=== PATIENT | male | born 1935 | race Caucasian/White ===

== ENCOUNTER 2018-02-13 13:35 | Inpatient (IN) ==
--- NOTE | 2018-02-13 13:59 | Emergency Department Note ---
Disposition Clinical Impression: Chest pain Qualifiers: Chest pain type: unspecified Qualified Code(s): R07.9 - Chest pain, unspecified Dyspnea Qualifiers: Dyspnea type: unspecified Qualified Code(s): R06.00 - Dyspnea, unspecified Abdominal pain Qualifiers: Abdominal location: unspecified location Qualified Code(s): R10.9 - Unspecified abdominal pain CHF exacerbation Qualifiers: Heart failure type: unspecified Qualified Code(s): I50.9 - Heart failure, unspecified Disposition: Admitted As Inpatient Condition: Good Referrals: Kirt Trevino DO [Primary Care Provider] - Forms: ED Satisfaction Letter Time of Disposition: 16:42 SOB HPI - General Chief Complaint: ED Shortness of Breath/Dyspnea Stated Complaint: WILIAN, CHF, S/P 3wks Time Seen by Provider: 02/13/18 13:59 Source: patient, family Mode of arrival: ambulatory Limitations: no limitations Nursing Notes Reviewed: Yes Vital Signs Reviewed: Yes - History of Present Illness Patient is an 82-year-old male with a past medical history of CHF, COPD, recent right inguinal hernia repair. He is planned to have a pacemaker placed next week. He presents today due to shortness of breath, lower extremity swelling. He says that he usually takes 20 mg Lasix daily. However, last week his Lasix dosing was changed to every other day dosing due to concern for dehydration. However, over the past week since that change, he has noted increasing shortness of breath and lower extremity swelling, he reports a weight gain up to a pound a day. He also admits to some chest tightness that starts in the center of his chest, no radiation to the back or arms, described as a sharp squeezing pressure, worse with exertion, associated with some shortness of breath and mild nausea. Rated a 10 out of 10 at its worst, currently rates it as 0 out of 10. No calf pain or leg redness. No history stent placement. He also notes some mild lower abdominal pain. He did recently have a right inguinal hernia repair in says that he has been constipated recently and feels as though his stomach tightens up occasionally. No other vomiting, diarrhea, blood in stool, surgical repair site has no erythema or pus drainage. No fevers. - Related Data Home Medications Medication Instructions Recorded Confirmed Aspirin [Lo-Dose Aspirin EC] 81 mg PO DAILY 08/25/16 01/27/18 Sertraline [Zoloft] 100 mg PO DAILY 08/25/16 01/27/18 Metoprolol Succinate [Toprol Xl] 25 mg PO DAILY 01/27/18 01/27/18 Previous Rx's Medication Instructions Recorded Furosemide [Lasix] 20 mg PO DAILY #30 tablet 01/27/18 Allergies Allergy/AdvReac Type Severity Reaction Status Date / Time No Known Allergies Allergy Verified 01/27/18 13:13 All systems ED: reviewed and negative except as stated. Constitutional: Denies: fever Cardiovascular: Reports: chest pain, dyspnea on exertion. Denies: palpitations Respiratory: Reports: dyspnea. Denies: cough, wheezes Gastrointestinal: Reports: abdominal pain, nausea, constipation. Denies: vomiting, diarrhea, hematemesis, melena, hematochezia Genitourinary: Denies: urgency, dysuria Neurological: Denies: headache, weakness, numbness, paresthesias Past Medical History - Past Medical History Attestation: Yes The following information was validated with the patient. Source: patient Medical history: Reports: non-contributory, asthma, atrial fibrillation, cancer , CHF, COPD, hyperlipidemia Surgical history: Reports: cancer surgery Psychiatric history: Reports: anxiety, depression - Social History Smoking Status: Former smoker Smokeless Tobacco Status: Yes Alcohol use: Reports: none Drug use: Reports: none Physical Exam - General Limitations: no limitations General appearance: alert, in no apparent distress - Head Head exam: atraumatic, normocephalic, normal inspection - Eye Eye exam: Present: normal appearance, PERRL, EOMI - ENT ENT exam: normal exam, normal oropharynx, mucous membranes moist - Neck Neck exam: Present: normal inspection, full ROM, trachea midline - Chest Chest inspection: Present: normal inspection, symmetric chest wall rise. Absent : tenderness, rash - Respiratory Respiratory exam: Present: normal lung sounds bilaterally - Cardiovascular Cardiovascular exam: Present: regular rate, normal rhythm, normal heart sounds - Abdominal Exam Abdominal exam: Present: soft, tenderness (mild RLQ tenderness). Absent: distention, guarding, rebound, rigidity, Forrest's sign, Rovsing's sign, tenderness at McBurney's Point - Extremities Exam Extremities exam: Present: full ROM, pedal edema (pitting edema bilateral LE, no calf pain or erythema). Absent: tenderness - Neurological Exam Neurological exam: Present: alert, oriented X3 - Psychiatric Psychiatric exam: Present: normal affect, normal mood - Skin Skin exam: Present: warm, dry, intact, normal color Course Course Narrative: Chest X-Ray 02/13/18 13:40 IMPRESSION: Findings in keeping with congestive heart failure with small bilateral pleural effusions and interstitial edema. D/ / Percy Manuel MD / Percy Manuel MD Interpreting Provider: Percy Manuel MD Abdomen/Pelvis CT 02/13/18 15:15 IMPRESSION: 1. 2.9 x 2.3 cm ovoid fluid density collection near the internal opening of the right inguinal canal. This may represent a postoperative seroma versus abscess. No right inguinal hernia. 2. Small fat containing left inguinal hernia with a trace volume of fluid in the inguinal canal. 3. Trace volume of nonspecific ascites. 4. Small bilateral pleural effusions and bibasilar consolidations likely representing atelectasis with pneumonia not excluded. D/ / Percy Manuel MD / Percy Manuel MD Interpreting Provider: Percy Manuel MD Vital Signs Temperature 97.7 F 02/13/18 13:41 Pulse Rate 98 02/13/18 13:41 Respiratory Rate 20 02/13/18 13:41 Blood Pressure 102/53 02/13/18 13:41 O2 Sat by Pulse Oximetry 94 02/13/18 13:41 Temperature 97.7 F 02/13/18 13:41 Pulse Rate 122 02/13/18 15:44 Respiratory Rate 18 02/13/18 15:44 Blood Pressure 104/72 02/13/18 15:44 O2 Sat by Pulse Oximetry 95 02/13/18 15:44 Oxygen Delivery Oxygen Delivery Room Air Shortness of Breath/Dyspnea - MDM Narrative Medical decision making narrative: Chest x-ray shows small bilateral pleural effusions and interstitial edema. EKG did show some new ST depression and T-wave inversions in an V4 through V6, lead II. Troponin negative. Due to concern for CHF exacerbation, patient was given IV Lasix. Also talked with quality system manager Dr. León due to new EKG changes. He did not recommend heparin at this time due to the patient having no active chest pain currently and no elevation in troponin. Patient also had CT of the abdomen and pelvis to assess for abdominal tightness and right lower quadrant pain. He does have a 2 x 2 cm likely seroma near the inguinal incision site. Otherwise, no other acute intra-abdominal process. Due to new EKG changes, history of recent chest pain or shortness of breath, concern for CHF exacerbation, will admit the patient for further care. - Medical Records Medical records reviewed: Yes I reviewed the patient's medical records. - Lab Data Lab results reviewed: Yes I reviewed the patient's lab results. Result diagrams: 02/13/18 14:34 02/13/18 14:34 Lab Results 02/13/18 02/13/18 02/13/18 Range/Units 14:34 14:34 14:34 WBC 5.4 (4.3-11.1) K/mcL RBC 3.86 L (4.19-5.50) M/mcL Hgb 11.6 L (12.9-16.9) g/dL Hct 37.2 L (37.5-50.1) % MCV 96.4 (83.0-100.0) fL MCH 30.1 (28.0-33.3) pg MCHC 31.2 L (31.6-35.5) g/dL RDW 13.9 (11.5-14.5) % Plt Count 202 (140-400) K/mcL MPV 9.8 (9.4-12.4) fL Immature Gran % 0.4 (0-4) % Seg Neutrophils % 70.4 % Lymphocytes % 16.9 % Monocytes % 8.8 % Eosinophils % 3.1 % Basophils % 0.4 % Neutrophils # 3.8 (1.6-8.9) K/mcL Lymphocytes # 0.9 (0.6-4.6) K/mcL Monocytes # 0.5 (0.0-1.3) K/mcL Eosinophils # 0.2 (0.0-0.6) K/mcL Basophils # 0.0 (0.0-0.2) K/mcL Sodium 137 (136-145) mEq/L Potassium 4.6 (3.5-5.1) mEq/L Chloride 103 (98-107) mEq/L Carbon Dioxide 26 (23-29) mEq/L BUN 24 H (8-23) mg/dL Creatinine 1.16 (0.70-1.30) mg/dL Est GFR ( Amer) > 60 (> 60) Est GFR (Non-Af Amer) > 60 (> 60) BUN/Creatinine Ratio 21 (6-26) Glucose 105 (70-105) mg/dL Calculated Osmolality 288 (280-300) Lactic Acid 1.2 (0.5-2.2) mmol/L Calcium 9.2 (8.6-10.3) mg/dL Troponin I < 0.03 (< 0.04) ng/mL B-Natriuretic Peptide (Less than 100) pg/mL 02/13/18 Range/Units 14:34 WBC (4.3-11.1) K/mcL RBC (4.19-5.50) M/mcL Hgb (12.9-16.9) g/dL Hct (37.5-50.1) % MCV (83.0-100.0) fL MCH (28.0-33.3) pg MCHC (31.6-35.5) g/dL RDW (11.5-14.5) % Plt Count (140-400) K/mcL MPV (9.4-12.4) fL Immature Gran % (0-4) % Seg Neutrophils % % Lymphocytes % % Monocytes % % Eosinophils % % Basophils % % Neutrophils # (1.6-8.9) K/mcL Lymphocytes # (0.6-4.6) K/mcL Monocytes # (0.0-1.3) K/mcL Eosinophils # (0.0-0.6) K/mcL Basophils # (0.0-0.2) K/mcL Sodium (136-145) mEq/L Potassium (3.5-5.1) mEq/L Chloride (98-107) mEq/L Carbon Dioxide (23-29) mEq/L BUN (8-23) mg/dL Creatinine (0.70-1.30) mg/dL Est GFR ( Amer) (> 60) Est GFR (Non-Af Amer) (> 60) BUN/Creatinine Ratio (6-26) Glucose (70-105) mg/dL Calculated Osmolality (280-300) Lactic Acid (0.5-2.2) mmol/L Calcium (8.6-10.3) mg/dL Troponin I (< 0.04) ng/mL B-Natriuretic Peptide 2372 H (Less than 100) pg/mL - Radiology Data Radiology results reviewed: Yes I reviewed the patient's radiology results. - EKG Data EKG attestation: Yes I reviewed and interpreted this EKG. EKG results narrative: 02/13/2018 at 13:44. Sinus tachycardia. Rate 101. LA 240. QRS 94. QTC 424. ST depression and t wave inversion in V4, V5, V6, lead 2 that is new from previous EKG on 08/02/2016. S.B.A.R. - S.B.A.R. Situation: Demographics, MOA Background: Presenting Complaint, Relevant PMH, Meds, & Allergies Assessment: Vital Signs, Course and respsone to treatment, Exam Concerns, Patient/Family Expectation, Pertinant Lab Results Recommendation: Barrier(s) to disposition, Recommendation based on pending studies, treatments, or consults
--- NOTE | 2018-02-13 14:17 | Emergency Department Note ---
Disposition Clinical Impression: Chest pain Qualifiers: Chest pain type: unspecified Qualified Code(s): R07.9 - Chest pain, unspecified Dyspnea Qualifiers: Dyspnea type: unspecified Qualified Code(s): R06.00 - Dyspnea, unspecified Abdominal pain Qualifiers: Abdominal location: unspecified location Qualified Code(s): R10.9 - Unspecified abdominal pain CHF exacerbation Qualifiers: Heart failure type: unspecified Qualified Code(s): I50.9 - Heart failure, unspecified Disposition: Admitted As Inpatient Condition: Good General Adult HPI - General Chief complaint: ED Shortness of Breath/Dyspnea Stated complaint: WILIAN, CHF, S/P 3wks Time Seen by Provider: 02/13/18 13:59 Source: patient, family Mode of arrival: ambulatory Limitations: no limitations - History of Present Illness Pain Scale: 4 - Related Data Home Medications Medication Instructions Recorded Confirmed Aspirin [Lo-Dose Aspirin EC] 81 mg PO DAILY 08/25/16 02/13/18 Sertraline [Zoloft] 100 mg PO DAILY 08/25/16 02/13/18 Metoprolol Succinate [Toprol Xl] 25 mg PO DAILY 01/27/18 02/13/18 Albuterol Sulfate [Ventolin Hfa] 2 puff IH Q4H PRN 02/13/18 02/13/18 Furosemide [Lasix] 20 mg PO Q48H 02/13/18 02/13/18 HYDROcodone/Acet 5/325 mg [[place] 1 - 2 tab PO Q4H PRN 02/13/18 02/13/18 5-325 mg] Melatonin [Melatonin] 3 mg PO HS PRN 02/13/18 02/13/18 Simethicone [Gas Relief] 125 mg PO QID 02/13/18 02/13/18 Allergies Allergy/AdvReac Type Severity Reaction Status Date / Time No Known Allergies Allergy Verified 01/27/18 13:13 Past Medical History - Past Medical History Medical history: Reports: non-contributory, asthma, atrial fibrillation, cancer , CHF, COPD, hyperlipidemia Surgical history: Reports: cancer surgery Psychiatric history: Reports: anxiety, depression - Social History Smoking Status: Former smoker Smokeless Tobacco Status: Yes Alcohol use: Reports: none Drug use: Reports: none Physical Exam - General Limitations: no limitations General appearance: alert, in no apparent distress Course Vital Signs Temperature 97.7 F 02/13/18 13:41 Pulse Rate 98 02/13/18 13:41 Respiratory Rate 20 02/13/18 13:41 Blood Pressure 102/53 02/13/18 13:41 O2 Sat by Pulse Oximetry 94 02/13/18 13:41 Temperature 97.7 F 02/13/18 13:41 Pulse Rate 99 02/13/18 18:19 Respiratory Rate 16 02/13/18 18:19 Blood Pressure 88/65 02/13/18 18:19 O2 Sat by Pulse Oximetry 94 02/13/18 18:19 Oxygen Delivery Oxygen Delivery Room Air Medical Decision Making - Lab Data Result diagrams: 02/13/18 14:34 02/13/18 14:34 Lab Results 02/13/18 02/13/18 02/13/18 Range/Units 14:34 14:34 14:34 WBC 5.4 (4.3-11.1) K/mcL RBC 3.86 L (4.19-5.50) M/mcL Hgb 11.6 L (12.9-16.9) g/dL Hct 37.2 L (37.5-50.1) % MCV 96.4 (83.0-100.0) fL MCH 30.1 (28.0-33.3) pg MCHC 31.2 L (31.6-35.5) g/dL RDW 13.9 (11.5-14.5) % Plt Count 202 (140-400) K/mcL MPV 9.8 (9.4-12.4) fL Immature Gran % 0.4 (0-4) % Seg Neutrophils % 70.4 % Lymphocytes % 16.9 % Monocytes % 8.8 % Eosinophils % 3.1 % Basophils % 0.4 % Neutrophils # 3.8 (1.6-8.9) K/mcL Lymphocytes # 0.9 (0.6-4.6) K/mcL Monocytes # 0.5 (0.0-1.3) K/mcL Eosinophils # 0.2 (0.0-0.6) K/mcL Basophils # 0.0 (0.0-0.2) K/mcL Sodium 137 (136-145) mEq/L Potassium 4.6 (3.5-5.1) mEq/L Chloride 103 (98-107) mEq/L Carbon Dioxide 26 (23-29) mEq/L BUN 24 H (8-23) mg/dL Creatinine 1.16 (0.70-1.30) mg/dL Est GFR ( Amer) > 60 (> 60) Est GFR (Non-Af Amer) > 60 (> 60) BUN/Creatinine Ratio 21 (6-26) Glucose 105 (70-105) mg/dL Calculated Osmolality 288 (280-300) Lactic Acid 1.2 (0.5-2.2) mmol/L Calcium 9.2 (8.6-10.3) mg/dL Troponin I < 0.03 (< 0.04) ng/mL B-Natriuretic Peptide (Less than 100) pg/mL 02/13/18 Range/Units 14:34 WBC (4.3-11.1) K/mcL RBC (4.19-5.50) M/mcL Hgb (12.9-16.9) g/dL Hct (37.5-50.1) % MCV (83.0-100.0) fL MCH (28.0-33.3) pg MCHC (31.6-35.5) g/dL RDW (11.5-14.5) % Plt Count (140-400) K/mcL MPV (9.4-12.4) fL Immature Gran % (0-4) % Seg Neutrophils % % Lymphocytes % % Monocytes % % Eosinophils % % Basophils % % Neutrophils # (1.6-8.9) K/mcL Lymphocytes # (0.6-4.6) K/mcL Monocytes # (0.0-1.3) K/mcL Eosinophils # (0.0-0.6) K/mcL Basophils # (0.0-0.2) K/mcL Sodium (136-145) mEq/L Potassium (3.5-5.1) mEq/L Chloride (98-107) mEq/L Carbon Dioxide (23-29) mEq/L BUN (8-23) mg/dL Creatinine (0.70-1.30) mg/dL Est GFR ( Amer) (> 60) Est GFR (Non-Af Amer) (> 60) BUN/Creatinine Ratio (6-26) Glucose (70-105) mg/dL Calculated Osmolality (280-300) Lactic Acid (0.5-2.2) mmol/L Calcium (8.6-10.3) mg/dL Troponin I (< 0.04) ng/mL B-Natriuretic Peptide 2372 H (Less than 100) pg/mL Attestation Statement - Attestation Attestation: I examined this patient and my medical decision-making was reviewed with the [employer]/PA/Advanced Practice Nurse/Resident Physician. I agree with the documented findings, disposition and treatment plan as described except to the extent set forth below. I did review the past record and the patient resents because of shortness of breath which has progressively been worsening for the last month, 7 pounds of weight gain in the last week, lower extremity edema, orthopnea, does have a history of congestive heart failure and he is here with his . Does have chest tightness which is also been going on for about a month but was much worse this morning and is only minimal at this time. I did review the EKG which does not show acute ischemic changes. Evaluation in progress. The patient is due to have a pacemaker placed in [address] Mercado [id number]
[2018-02-13 14:51] LABS: Basophils % 0.4 %; Eosinophils # 0.2 K/mcL (0.0-0.6); Eosinophils % 3.1 %; Hematocrit 37.2 % (37.5-50.1); Hemoglobin 11.6 g/dL (12.9-16.9); Immature Granulocytes % 0.4 % (0-4); Lymphocytes # 0.9 K/mcL (0.6-4.6); Lymphocytes % 16.9 %; Mean Corpuscular HGB Conc 31.2 g/dL (31.6-35.5); Mean Corpuscular Hemoglobin 30.1 pg (28.0-33.3); Mean Corpuscular Volume 96.4 fL (83.0-100.0); Mean Platelet Volume 9.8 fL (9.4-12.4); Monocytes # 0.5 K/mcL (0.0-1.3); Monocytes % 8.8 %; Neutrophils # 3.8 K/mcL (1.6-8.9); Platelet Count 202 K/mcL (140-400); Red Blood Count 3.86 M/mcL (4.19-5.50); Red Cell Distribution Width 13.9 % (11.5-14.5); Segmented Neutrophils % 70.4 %
[2018-02-13 15:08] LABS: BUN/Creatinine Ratio 21 (6-26); Blood Urea Nitrogen 24 mg/dL (8-23); Calcium 9.2 mg/dL (8.6-10.3); Carbon Dioxide 26 mEq/L (23-29); Chloride 103 mEq/L (98-107); Glucose 105 mg/dL (70-105); Osmolality,Calculated 288 (280-300); Potassium 4.6 mEq/L (3.5-5.1); Sodium 137 mEq/L (136-145); Troponin I < 0.03 ng/mL (< 0.04); eGFR For African Americans > 60 (> 60); eGFR For Non-African Americans > 60 (> 60)
[2018-02-13] MEDS ORDERED: Furosemide 40 MG/4 ML VIAL IVP ONE ×2 (16:25→18:27)
[2018-02-13] MEDS ORDERED: Naloxone 0.4 MG/ML INJ IVP PRN (18:18)
--- NOTE | 2018-02-13 18:36 | Internal Med History&Physical ---
Date of Encounter: 02/13/18 Time of Encounter: 18:29 Internal Medicine - H&P: HPI Admitted From: Home Plans for Post Hospital Care: Home History of present illness: Mr. Mederos is a 82 year old male with past medical history of CHF and COPD presented with shortness of breath and leg swelling for one week. He has been diagnosed with CHF, recent cardiac workup in 2017 including echocardiogram revealed EF 30%, and coronary angiogram revealed normal coronary artery system. He underwent right inguinal hernia repair about 3 weeks ago. At that time, his Lasix dose was changed from 20 mg daily to 20 mg every other day due to the concerning of dehydration. Ever since, he noticed progressive weight gain and lower extremity swelling. He also experienced progressive sob which not relieved by respiratory inhaler. He denies fever, cough, or sputum production. He has no chest pain, palpitation, or hemoptysis. At the ED, he was found to have tachycardia with heart rate about 120, other vital signs were stable. Labs were unremarkable except elevated BNP. Chest x- ray and CT chest post revealed bilateral pleural effusion and pulmonary congestion. He also received 1 dose of IV Lasix. He will be admitted to MedSurg floor for further management. Past Med Surg Social Fam HX - Past Medical History Medical history: non-contributory, asthma, atrial fibrillation, cancer, CHF, COPD, hyperlipidemia Psychiatric history: anxiety, depression - Past Surgical History Surgical History: cancer surgery - Social History Smoking Status: Former smoker Smokeless Tobacco Status: Yes Alcohol use: none Drug use: none Internal Medicine - H&P: Meds Aspirin [Lo-Dose Aspirin EC] 81 mg PO DAILY 08/25/16 [History] Sertraline [Zoloft] 100 mg PO DAILY 08/25/16 [History] Metoprolol Succinate [Toprol Xl] 25 mg PO DAILY 01/27/18 [History] Albuterol Sulfate [Ventolin Hfa] 2 puff IH Q4H PRN 02/13/18 [History] Furosemide [Lasix] 20 mg PO Q48H 02/13/18 [History] HYDROcodone/Acet 5/325 mg [[place] 5-325 mg] 1 - 2 tab PO Q4H PRN 02/13/18 [ History] Melatonin [Melatonin] 3 mg PO HS PRN 02/13/18 [History] Simethicone [Gas Relief] 125 mg PO QID 02/13/18 [History] 3 Allergy/AdvReac Type Severity Reaction Status Date / Time No Known Allergies Allergy Verified 01/27/18 13:13 All Systems PM: A 10-system review of systems was performed and is negative for pertinent findings except as documented above in the HPI. Review of systems: REVIEW OF SYSTEMS: CONSTITUTIONAL: No weight loss, fever, chills, weakness or fatigue. HEENT: Eyes: No visual loss, blurred vision, double vision or yellow sclerae. Ears, Nose, Throat: No hearing loss, sneezing, congestion, runny nose or sore throat. SKIN: No rash or itching. CARDIOVASCULAR: see HPI. RESPIRATORY: see HPI. GASTROINTESTINAL: No anorexia, nausea, vomiting or diarrhea. No abdominal pain or blood. GENITOURINARY: No dysuria, urgency, or frequency. NEUROLOGICAL: No headache, dizziness, syncope, paralysis, ataxia, numbness or tingling in the extremities. No change in bowel or bladder control. MUSCULOSKELETAL: No muscle, back pain, joint pain or stiffness. HEMATOLOGIC: No anemia, bleeding or bruising. LYMPHATICS: No enlarged nodes. No history of splenectomy. PSYCHIATRIC: No history of depression or anxiety. ENDOCRINOLOGIC: No reports of sweating, cold or heat intolerance. No polyuria or polydipsia. - Constitutional Vitals: Temp Pulse Resp BP Pulse Ox 97.7 F 99 16 88/65 94 02/13/18 13:41 02/13/18 18:19 02/13/18 18:19 02/13/18 18:19 02/13/18 18:19 Exam: PHYSICAL EXAMINATION: GENERAL APPEARANCE: The patient is alert, oriented and in no acute distress. HEENT: Head is normocephalic. The sinuses are nontender. Pupils are equal and reactive. The nares are patent. Oropharynx clear without lesions. NECK: JVD at jawline. HEART: Regular rate and rhythm. No murmur or rubs. LUNGS: bilateral crackles noted up to the middle lung zone. ABDOMEN: Soft, nontender, nondistended with good bowel sounds heard. Inguinal area is normal. EXTREMITIES: Without cyanosis, clubbing or edema. NEUROLOGICAL: Gross nonfocal. SKIN: Warm and dry without any rash. Internal Med - H&P Results - Labs CBC & Chem 7: 02/13/18 14:34 02/13/18 14:34 - Assessment and plan (1) Acute on chronic systolic (congestive) heart failure Current Visit: Yes Status: Acute Assessment and plan: - Non-ischemic heart disease, recent C revealed normal coronary artery system (2017). - Systolic heart failure with ejection fraction 30% (08/2017 ECHO). NYHA stage 2 -3. - initial troponin negative,will cycle troponin. EKG no acute changes. BNP 2372 (2459 last admission) - On Lasix and beta jerrica at home. SOB developed after reduced Lasix dose. - Will continue home dose of Metoprolol, change lasix to 40 mg IV daily, may add ACEI if BP permits. - pulliam weight, cardiet diet, and strict Is/Os. (2) Tachycardia Current Visit: Yes Status: Acute Assessment and plan: - Normal SR on tele, normal troponin. - resume home metoprolol. - Doppler to BLE to rule out DVT. low suspicion for PE at this moment. (3) Bilateral inguinal hernia Current Visit: No Status: Chronic Assessment and plan: - s/p right inguinal hernia repair, small seroma at surgical site and small amount of ascites on CT, likely post surgery related change. - left inguinal hernia noted, pt states he will have another elective repair in the future. - No abd pain or signs of strangulation. Qualifiers: Obstruction and gangrene presence: without obstruction or gangrene Recurrence: not specified as recurrent Qualified Code(s): K40.20 - Bilateral inguinal hernia, without obstruction or gangrene, not specified as recurrent (4) COPD (chronic obstructive pulmonary disease) Current Visit: No Status: Chronic Assessment and plan: - stable and continue home meds. Qualifiers: COPD type: unspecified COPD Qualified Code(s): J44.9 - Chronic obstructive pulmonary disease, unspecified - Time Spent With Patient Total time spent is greater than 50% in coordination of care (as documented) at patient's floor/unit and/or counseling patient: Greater than 35 minutes
[2018-02-13] MEDS: Simethicone 80 MG TAB.CHEW PO SCH (20:42)
[2018-02-13] MEDS: Aspirin Enteric Coated 81 MG Tablet PO SCH (20:42)
[2018-02-13] MEDS: Metoprolol XL (24 HR) Succ 25 MG TAB.ER.24H PO SCH (20:42)
[2018-02-13] MEDS: Melatonin 3 MG TABLET PO PRN (20:42)
[2018-02-13] MEDS: traMADol 50 MG TABLET PO PRN (20:43)
[2018-02-14 01:14] LABS: Hematocrit 35.5 % (37.5-50.1); Hemoglobin 11.3 g/dL (12.9-16.9); Mean Corpuscular HGB Conc 31.8 g/dL (31.6-35.5); Mean Corpuscular Hemoglobin 30.1 pg (28.0-33.3); Mean Corpuscular Volume 94.4 fL (83.0-100.0); Mean Platelet Volume 10.2 fL (9.4-12.4); Platelet Count 195 K/mcL (140-400); Red Blood Count 3.76 M/mcL (4.19-5.50); Red Cell Distribution Width 13.7 % (11.5-14.5)
[2018-02-14 01:34] LABS: BUN/Creatinine Ratio 20 (6-26); Blood Urea Nitrogen 25 mg/dL (8-23); Calcium 9.2 mg/dL (8.6-10.3); Carbon Dioxide 26 mEq/L (23-29); Chloride 102 mEq/L (98-107); Glucose 91 mg/dL (70-105); Osmolality,Calculated 288 (280-300); Potassium 4.2 mEq/L (3.5-5.1); Sodium 137 mEq/L (136-145); eGFR For African Americans > 60 (> 60); eGFR For Non-African Americans 55 (> 60)
[2018-02-14] MEDS: *HR* Heparin 5,000 UNIT/ML VIAL SQ SCH ×2 (06:42→17:00)
--- NOTE | 2018-02-14 08:41 | Internal Med Progress Note ---
Date of Encounter: 02/14/18 Time of Encounter: 08:39 - Assessment and plan (1) Acute on chronic systolic (congestive) heart failure Current Visit: Yes Status: Acute Assessment and plan: - Non-ischemic heart disease, recent C revealed normal coronary artery system (2016). - Systolic heart failure with ejection fraction 30% (08/2017 ECHO). NYHA stage 3 -4. - EKG at admission no acute changes. BNP 2372 (2459 last admission), Troponin neg x3. - On Lasix and beta jerrica at home. SOB developed after reduced Lasix dose. - Overnight tele reviewed, frequent junctional tachycardia with HR about 120, frequent PVCs, LBBB, and episodes of suspicious Afib. - HR about 90-120, BP at low 90s. - Lasix 40mg IV daily, minimal improvement of sob. symptoms and clinical tests are consistent with advanced heart failure. 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 cardio consult. - daily weight, cardiac diet, and strict Is/Os. (2) Tachycardia Current Visit: Yes Status: Acute Assessment and plan: - tele revealed NSR with HR about 80-90, frequent junctional tachycardia/SVT with HR 120, frequent DVTs, LBBB, and episodes of suspicious afib. - BLE doppler negative for DVT. - HX of tachycardia and baseline BP. 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 (3) Bilateral inguinal hernia Current Visit: No Status: Chronic Assessment and plan: s/p right inguinal hernia repair, small seroma at surgical site and small amount of ascites on CT, likely post surgery related change. - left inguinal hernia noted, pt states he will have another elective repair in the future. - No abd pain or signs of strangulation. Qualifiers: Obstruction and gangrene presence: without obstruction or gangrene Recurrence: not specified as recurrent Qualified Code(s): K40.20 - Bilateral inguinal hernia, without obstruction or gangrene, not specified as recurrent (4) COPD (chronic obstructive pulmonary disease) Current Visit: No Status: Chronic Assessment and plan: - stable and continue home meds. Qualifiers: COPD type: unspecified COPD Qualified Code(s): J44.9 - Chronic obstructive pulmonary disease, unspecified - Time Spent With Patient Total time spent is greater than 50% in coordination of care (as documented) at patient's floor/unit and/or counseling patient: Greater than 35 minutes - Subjective Interval history: slightly improved sob per pt. Reported some dizzy feeling and lightheadedness while walking. No chest pain, palpitation, or syncope. - Constitutional Vitals: Temp Pulse Resp BP Pulse Ox 97.9 F 115 16 86/54 92 02/14/18 07:05 02/14/18 07:05 02/14/18 07:05 02/14/18 07:05 02/14/18 07:05 Exam: PHYSICAL EXAMINATION: GENERAL APPEARANCE: The patient is alert, oriented and in no acute distress. HEENT: Head is normocephalic. The sinuses are nontender. Pupils are equal and reactive. The nares are patent. Oropharynx clear without lesions. NECK: JVD at mid-neck. HEART: Regular rate and rhythm. LUNGS: crackles bilaterally to middle lung zone. ABDOMEN: right inguinal hernia repair surgical site clean and wound healed well. EXTREMITIES: Without cyanosis, clubbing or edema. NEUROLOGICAL: Gross nonfocal. SKIN: Warm and dry without any rash. Internal Medicine: Result - Labs CBC & Chem 7: 02/14/18 00:41 02/14/18 00:41 Labs: Short CBC 02/14/18 Range/Units 00:41 WBC 6.0 (4.3-11.1) K/mcL Hgb 11.3 L (12.9-16.9) g/dL Hct 35.5 L (37.5-50.1) % Plt Count 195 (140-400) K/mcL BMP 02/14/18 00:41 Sodium 137 Potassium 4.2 Chloride 102 Carbon Dioxide 26 BUN 25 H Creatinine 1.25 Glucose 91 Calcium 9.2 Cardiac Enzymes 02/13/18 02/14/18 Range/Units 20:15 00:41 Troponin I < 0.03 0.03 (< 0.04) ng/mL Consult Discharge Plan - Plan Referrals: Kirt Trevino DO [Primary Care Provider] -
[2018-02-14] MEDS: Simethicone 80 MG TAB.CHEW PO SCH ×4 (09:05→21:49)
[2018-02-14] MEDS: Aspirin Enteric Coated 81 MG Tablet PO SCH (09:05)
[2018-02-14] MEDS: Furosemide 40 MG/4 ML VIAL IVP SCH (09:06)
[2018-02-14] MEDS: Metoprolol XL (24 HR) Succ 25 MG TAB.ER.24H PO SCH (09:06)
--- NOTE | 2018-02-14 09:53 | Cardiology Consult Note ---
Date of Encounter: 02/14/18 Time of Encounter: 09:51 Assessment and Plan (1) Acute on chronic systolic (congestive) heart failure Current Visit: Yes Status: Acute BNP 2373, CXR and CT consistent with CHF. Known EF of 30% 08/2017 most recent TTE. Symptoms of 8lb weight gain in the past week, worsening dyspnea and abdominal distention. Per pt, was just started on PO Lasix last week, then dose was decreased due to concerns of dehydration. Upon talking to pt, also suspect excess Na intake. Agree with IV diuresis--40mg Lasix daily as BP allows. Transition to PO maintenance dose of Lasix at d/c. Recommend daily weights, strict I/Os, Na and fluid restriction. Anticipate sign off once seen and evaluated by Dr. León. (2) Nonischemic cardiomyopathy Current Visit: Yes Status: Acute Known NICMP. EF 30%. C 04/2017 minimal CAD. EKG diffuse changes throughout. Troponin negative x 4. BB as BP tolerates. No ACEi due to hypotension. Planned to have ICD inserted 02/18/18. Please reconsult if pt is still inpt at that time so that device can be inserted. (3) Tachycardia Current Visit: Yes Status: Acute Sinus tach with ectopy. BB held this AM due to hypotension. BB as BP allows. Discussion w patient/family: The assessment and plan as outlined above was discussed with the patient and/or family members who expressed understanding and agreement. All questions were answered. Thank you for involving us in the care of your patient. Please call with any questions. I will discuss all the above with Dr. León and make changes as necessary. History of Present Illness Consult date: 02/14/18 Requesting physician: Aliyah Templeton Consult reason: CHF Chief complaint: dyspnea, weight gain History of present illness: Mr. Mederos is a 82 year old male with PMH of systolic CGF EF 30%, NICMP--[facility] with minimal disease 04/2017, and COPD presented with increasing dyspnea over recent weeks, 8lb weight gain, and abdominal distention. Pt reports he was just started on Lasix by his PCP a little over a week ago, then saw cardiology as outpt and it was decreased to 20mg every other day due to the concerning of dehydration. Since then, he has noticed progressive weight gain and lower extremity swelling. He denies chest pain. Chest x-ray and CT chest post revealed bilateral pleural effusion and pulmonary congestion. He was started on IV Lasix. After discussion with pt, it seems as though he has been consuming excess Na and fluids. Troponins negative. BNP 2372. Planned to have ICD placement on 02/18/18. Past Med Surg Social Fam HX - Past Medical History Medical history: non-contributory, asthma, atrial fibrillation, cancer, CHF, COPD, hyperlipidemia Psychiatric history: anxiety, depression - Past Surgical History Surgical History: cancer surgery - Social History Smoking Status: Former smoker Smokeless Tobacco Status: Yes Alcohol use: none Drug use: none Medications and Allergies RX: Aspirin [Lo-Dose Aspirin EC] 81 mg PO DAILY 08/25/16 [History] RX: Sertraline [Zoloft] 100 mg PO DAILY 08/25/16 [History] Metoprolol Succinate [Toprol Xl] 25 mg PO DAILY 01/27/18 [History] Albuterol Sulfate [Ventolin Hfa] 2 puff IH Q4H PRN 02/13/18 [History] Furosemide [Lasix] 20 mg PO Q48H 02/13/18 [History] Melatonin [Melatonin] 3 mg PO HS PRN 02/13/18 [History] RX: HYDROcodone/Acet 5/325 mg [[place] 5-325 mg] 1 - 2 tab PO Q4H PRN 02/13/18 [ History] Simethicone [Gas Relief] 125 mg PO QID 02/13/18 [History] 3 Allergy/AdvReac Type Severity Reaction Status Date / Time No Known Allergies Allergy Verified 01/27/18 13:13 All Systems Review: The remainder of the systems were reviewed and are negative - Constitutional Constitutional: weight gain - Cardiovascular Cardiovascular: as per HPI, dyspnea at rest, dyspnea on exertion - Respiratory Respiratory: dyspnea Physical Examination Vital Signs, Last 4 Hours Temp Pulse Resp BP Pulse Ox 02/14/18 09:20 94/56 02/14/18 07:05 97.9 F 115 16 86/54 92 Vital Signs Temp Pulse Resp BP Pulse Ox 02/14/18 09:20 94/56 02/14/18 07:05 97.9 F 115 16 86/54 92 02/14/18 03:48 97.6 F 118 14 90/55 95 02/14/18 00:33 97.8 F 115 14 91/59 94 02/13/18 18:19 99 16 88/65 94 02/13/18 16:29 127 15 103/90 96 02/13/18 15:44 122 18 104/72 95 02/13/18 15:12 122 20 99/68 97 02/13/18 13:41 97.7 F 98 20 102/53 94 Intake and Output 02/13/18 02/14/18 02/14/18 23:59 07:59 15:59 Intake Total 240 / 240 Output Total 300 / 300 0 / 0 Balance -300 / -300 240 / 240 Intake: Oral 240 / 240 Output: Urine 300 / 300 0 / 0 Other: Meal Breakfast Percent of Meal Consumed 100% # Voids 0 General: Conversant, No Apparent Distress HEENT: Atraumatic, Normocephaly, Mucus Membranes Moist Neck: Normal carotid pulses Cardiac: Reg Rate and Rhythm, Normal S1 and S2, No Murmur Lungs: Other (diminished) Neuro: Alert and responsive, No focal deficits noted Abdomen: Soft, Non-Tender Skin: No rashes noted on visualized skin Musculoskeletal: No Chest Wall Tenderness Extremities: No Clubbing, No Cyanosis, No Edema, Normal Pulses Results 02/14/18 00:41 02/14/18 00:41 Lab Results 02/13/18 02/14/18 02/14/18 20:15 00:41 00:41 WBC 6.0 Hgb 11.3 L Hct 35.5 L Plt Count 195 Sodium Potassium Chloride Carbon Dioxide BUN Creatinine Glucose Calcium Troponin I < 0.03 0.03 02/14/18 00:41 WBC Hgb Hct Plt Count Sodium 137 Potassium 4.2 Chloride 102 Carbon Dioxide 26 BUN 25 H Creatinine 1.25 Glucose 91 Calcium 9.2 Troponin I Short CBC 02/14/18 02/13/18 Range/Units 00:41 14:34 WBC 6.0 5.4 (4.3-11.1) K/mcL Hgb 11.3 L 11.6 L (12.9-16.9) g/dL Hct 35.5 L 37.2 L (37.5-50.1) % Plt Count 195 202 (140-400) K/mcL Neutrophils # 3.8 (1.6-8.9) K/mcL BMP 02/14/18 02/13/18 Range/Units 00:41 14:34 Sodium 137 137 (136-145) mEq/L Potassium 4.2 4.6 (3.5-5.1) mEq/L Chloride 102 103 (98-107) mEq/L Carbon Dioxide 26 26 (23-29) mEq/L BUN 25 H 24 H (8-23) mg/dL Creatinine 1.25 1.16 (0.70-1.30) mg/dL Glucose 91 105 (70-105) mg/dL Calcium 9.2 9.2 (8.6-10.3) mg/dL Cardiac Enzymes 02/14/18 02/13/18 02/13/18 Range/Units 00:41 20:15 14:34 Troponin I 0.03 < 0.03 < 0.03 (< 0.04) ng/mL Impressions Chest X-Ray 02/13/18 13:40 IMPRESSION: Findings in keeping with congestive heart failure with small bilateral pleural effusions and interstitial edema. D/ / Percy Manuel MD / Percy Manuel MD Interpreting Provider: Percy Manuel MD Abdomen/Pelvis CT 02/13/18 15:15 IMPRESSION: 1. 2.9 x 2.3 cm ovoid fluid density collection near the internal opening of the right inguinal canal. This may represent a postoperative seroma versus abscess. No right inguinal hernia. 2. Small fat containing left inguinal hernia with a trace volume of fluid in the inguinal canal. 3. Trace volume of nonspecific ascites. 4. Small bilateral pleural effusions and bibasilar consolidations likely representing atelectasis with pneumonia not excluded. D/ / Percy Manuel MD / Percy Manuel MD Interpreting Provider: Percy Manuel MD Active Medications Albuterol Sulfate (Albuterol Inhaler) 2 puff IH Q4H PRN PRN Reason: Shortness Of Breath Stop: 08/15/18 18:24 Aspirin (Aspirin Ec) 81 mg PO DAILY KARI Stop: 08/15/18 18:31 Last Admin: 02/14/18 09:05 Dose: 81 mg Furosemide (Lasix) 40 mg IVP DAILY KARI Stop: 08/16/18 09:01 Last Admin: 02/14/18 09:06 Dose: Not Given Heparin Sodium (Porcine) (Heparin) 5,000 unit SQ Q12HR KARI Stop: 08/16/18 06:01 Last Admin: 02/14/18 06:42 Dose: 5,000 unit Melatonin (Melatonin) 3 mg PO HS PRN PRN Reason: Sleep Stop: 08/15/18 18:24 Last Admin: 02/13/18 20:42 Dose: 3 mg Metoprolol Succinate (Toprol Xl) 25 mg PO DAILY KARI Stop: 08/15/18 18:31 Last Admin: 02/14/18 09:06 Dose: Not Given Naloxone HCl (Narcan) 0.4 mg IVP Q2MIN PRN PRN Reason: SEE COMMENTS Stop: 08/15/18 18:19 Sertraline HCl (Zoloft) 100 mg PO DAILY KARI Stop: 08/15/18 18:31 Last Admin: 02/14/18 09:06 Dose: Not Given Simethicone (Gas-X) 120 mg PO QID KARI Stop: 08/15/18 21:01 Last Admin: 02/14/18 09:05 Dose: 120 mg Tramadol HCl (Ultram) 50 mg PO Q6HR PRN PRN Reason: Moderate Pain Stop: 08/15/18 18:19 Last Admin: 02/13/18 20:43 Dose: 50 mg - Imaging and Cardiology Echo: report reviewed Cardiac cath: report reviewed - EKG Interpretation EKG results cardiology: personally reviewed (Sinus tach, PVCs), other (12 hr tele AVG HR 108, SR, ectopy) Consult Discharge Plan - Plan Referrals: Kirt Trevino DO [Primary Care Provider] - 02/21/18 8:15 am (patient will follow up with Acacia Escobar)
[2018-02-14] MEDS ORDERED: *HR* LORazepam 1 MG TABLET PO ONE (21:30)
[2018-02-15 04:18] LABS: INR 1.2; Prothrombin Time 13.2 Seconds (9.4-12.1)
[2018-02-15 04:31] LABS: BUN/Creatinine Ratio 24 (6-26); Blood Urea Nitrogen 28 mg/dL (8-23); Carbon Dioxide 25 mEq/L (23-29); Chloride 102 mEq/L (98-107); Glucose 100 mg/dL (70-105); Osmolality,Calculated 286 (280-300); Potassium 3.9 mEq/L (3.5-5.1); Sodium 135 mEq/L (136-145); eGFR For African Americans > 60 (> 60); eGFR For Non-African Americans 59 (> 60)
[2018-02-15] MEDS: *HR* Heparin 5,000 UNIT/ML VIAL SQ SCH ×2 (05:01→17:16)
[2018-02-15] MEDS: Simethicone 80 MG TAB.CHEW PO SCH ×4 (08:32→21:57)
[2018-02-15] MEDS: Aspirin Enteric Coated 81 MG Tablet PO SCH (08:32)
[2018-02-15] MEDS: Furosemide 40 MG/4 ML VIAL IVP SCH (08:33)
[2018-02-15] MEDS: Metoprolol XL (24 HR) Succ 25 MG TAB.ER.24H PO SCH (08:33)
--- NOTE | 2018-02-15 12:12 | Electrocardiograph Report ---
[address] [place], [place] [address] Test Date: 2018-02-14 Pat Name: Cirilo Mederos Department: 112 Room: 2A26 Gender: M Exec. Creative Director: : 1935 Requested By: Rehana Pineda Order Number: [id number] Reading MD: Gwendolyn Card Measurements Intervals [place] Rate: 88 P: 14 TN: 244 QRS: -31 QRSD: 96 T: 208 QT: 391 QTc: 436 Interpretive Statements SINUS RHYTHM WITH FIRST DEGREE AV BLOCK WITH OCCASIONAL SUPRAVENTRICULAR PREMATURE COMPLEXES POSSIBLE LEFT ATRIAL ENLARGEMENT MARKED LEFT AXIS DEVIATION ANTEROSEPTAL MYOCARDIAL INFARCTION, OF INDETERMINATE AGE MODERATE T-WAVE ABNORMALITY, CONSIDER LATERAL ISCHEMIA Electronically Signed On 02-15-2018 12:10:20 EDT by Gwendolyn Card
--- NOTE | 2018-02-15 12:44 | Internal Med Progress Note ---
Date of Encounter: 02/15/18 Time of Encounter: 12:44 - Assessment and plan (1) Acute on chronic systolic (congestive) heart failure Current Visit: Yes Status: Acute Assessment and plan: Pt has history of Non-ischemic heart disease, recent LHC revealed normal coronary artery system (2017). Systolic heart failure with ejection fraction 30% (08/2017 ECHO). NYHA stage 3- 4. Clinically improving continue IV lasix unable to tolerate BB due to labile BP, will decreased BB dose to Metoprolol 12.5mg PO qd cardiology on board and evaluation appreciated continue to monitor daily weights, I/Os, fluid restriction diet will closely monitor respiratory status (2) Bilateral inguinal hernia Current Visit: No Status: Chronic Assessment and plan: clinically asymptomatic outpatient follow up No abd pain or signs of strangulation present at this time Qualifiers: Obstruction and gangrene presence: without obstruction or gangrene Recurrence: not specified as recurrent Qualified Code(s): K40.20 - Bilateral inguinal hernia, without obstruction or gangrene, not specified as recurrent (3) COPD (chronic obstructive pulmonary disease) Current Visit: No Status: Chronic Assessment and plan: no signs of exacerbation continue home meds Qualifiers: COPD type: unspecified COPD Qualified Code(s): J44.9 - Chronic obstructive pulmonary disease, unspecified (4) Tachycardia Current Visit: Yes Status: Acute Assessment and plan: continues to have sinus tachycardia but clinically asymptomatic cardiology aware and continue to monitor BB if BP allows will continue to monitor (5) DVT prophylaxis Current Visit: Yes Status: Acute Assessment and plan: Heparin SQ - Time Spent With Patient Total time spent is greater than 50% in coordination of care (as documented) at patient's floor/unit and/or counseling patient: - Subjective Interval history: Pt seen and examined with family present at bedside. Pt reports of feeling better compared to previous day. States there is significant improvement in his respiratory status. Noted to be tachycardic this morning but sinus tachycardia. Unble to take BB due to hypotension, however tolerating lasix well. Pt denies any chest pain or discomfort at this time. unclear if the recorded I/Os are accurate, as pt is reporting of having increase in his urine output. No overnight issues reported pt and family reported that he is scheduled for an ICD placement on 02/18/18, if remains inpatient, will follow up with cardiology for placement of ICD while patient is hospitalized - Constitutional Vitals: Temp Pulse Resp BP Pulse Ox 97.4 F L 95 20 93/61 95 02/15/18 11:47 02/15/18 11:47 02/15/18 11:47 02/15/18 11:47 02/15/18 11:47 General appearance: Present: cooperative, A&O X 3, no acute distress - Head Head exam: Present: atraumatic, normocephalic - Eye Eye exam: Present: conjuntiva pink, sclera anicteric - Respiratory Respiratory exam: Absent: respiratory distress, wheezes (bibasilar crackles) - Cardiovascular Cardiovascular exam: Present: +S1, +S2, tachycardia (sinus tachycardia). Absent : diastolic murmur, gallop, rubs, systolic murmur - GI/Abdominal GI/Abdominal exam: Present: normal bowel sounds, soft, no peritoneal signs. Absent: distended, tenderness - Extremities Exam Extremities exam: Present: warm, radial pulses palpable and symmetrical. Absent : calf tenderness, pedal edema, tenderness - Neurological Exam Neurological exam: Present: oriented X3 Internal Medicine: Result - Labs CBC & Chem 7: 02/14/18 00:41 02/15/18 03:59 Labs: BMP 02/15/18 03:59 Sodium 135 L Potassium 3.9 Chloride 102 Carbon Dioxide 25 BUN 28 H Creatinine 1.18 Glucose 100 Calcium 9.0 - ABG Interpretation ABG results: PT/INR, D-dimer PT 13.2 Seconds (9.4-12.1) H 02/15/18 03:59 Consult Discharge Plan - Plan Referrals: Kirt Trevino DO [Primary Care Provider] - 02/21/18 8:15 am (patient will follow up with Acacia Escobar)
--- NOTE | 2018-02-15 13:21 | Electrocardiograph Report ---
[address] [place] [address] Test Date: 2018-02-13 Pat Name: Cirilo Mederos Department: 104 Room: 2A26 Gender: M Library Customer Service Clerk: CLEMENTINA : 1935 Requested By: Adriano Cerda Order Number: [id number] Reading MD: Gwendolyn Card Measurements Intervals [place] Rate: 101 P: 3 [place]: 240 QRS: 10 QRSD: 94 T: 154 QT: 366 QTc: 424 Interpretive Statements SINUS TACHYCARDIA WITH FIRST DEGREE AV BLOCK WITH FREQUENT VENTRICULAR PREMATURE COMPLEXES ANTEROSEPTAL TX, AGE INDETERMINATE LATERAL ST ABNORMALITIES, CONSIDER ISCHEMIA Electronically Signed On 02-15-2018 13:19:32 EDT by Gwendolyn Card
[2018-02-15] MEDS: Melatonin 3 MG TABLET PO PRN (21:57)
[2018-02-16 04:35] LABS: Basophils % 0.8 %; Eosinophils # 0.2 K/mcL (0.0-0.6); Eosinophils % 3.3 %; Hematocrit 33.9 % (37.5-50.1); Hemoglobin 10.9 g/dL (12.9-16.9); Immature Granulocytes % 0.4 % (0-4); Lymphocytes % 20.2 %; Mean Corpuscular HGB Conc 32.2 g/dL (31.6-35.5); Mean Corpuscular Hemoglobin 30.6 pg (28.0-33.3); Mean Corpuscular Volume 95.2 fL (83.0-100.0); Mean Platelet Volume 10.4 fL (9.4-12.4); Monocytes # 0.5 K/mcL (0.0-1.3); Monocytes % 10.5 %; Neutrophils # 3.3 K/mcL (1.6-8.9); Platelet Count 167 K/mcL (140-400); Red Blood Count 3.56 M/mcL (4.19-5.50); Red Cell Distribution Width 13.7 % (11.5-14.5); Segmented Neutrophils % 64.8 %
[2018-02-16 04:49] LABS: BUN/Creatinine Ratio 25 (6-26); Blood Urea Nitrogen 29 mg/dL (8-23); Calcium 8.9 mg/dL (8.6-10.3); Carbon Dioxide 27 mEq/L (23-29); Chloride 100 mEq/L (98-107); Glucose 109 mg/dL (70-105); Osmolality,Calculated 290 (280-300); Phosphorous 4.2 mg/dL (2.7-4.5); Potassium 3.7 mEq/L (3.5-5.1); Sodium 137 mEq/L (136-145); eGFR For African Americans > 60 (> 60); eGFR For Non-African Americans > 60 (> 60)
[2018-02-16] MEDS: *HR* Heparin 5,000 UNIT/ML VIAL SQ SCH ×2 (06:07→17:52)
[2018-02-16] MEDS: Aspirin Enteric Coated 81 MG Tablet PO SCH (08:47)
[2018-02-16] MEDS: Simethicone 80 MG TAB.CHEW PO SCH ×4 (08:47→22:50)
[2018-02-16] MEDS: Furosemide 40 MG/4 ML VIAL IVP SCH (08:48)
--- NOTE | 2018-02-16 11:57 | Internal Med Progress Note ---
Date of Encounter: 02/16/18 Time of Encounter: 11:54 - Assessment and plan (1) Acute on chronic systolic (congestive) heart failure Current Visit: Yes Status: Acute Assessment and plan: Pt has history of Non-ischemic heart disease, recent LHC revealed normal coronary artery system (2017). ystolic heart failure with ejection fraction 30% (08/2017 ECHO). NYHA stage 3- 4. Clinically improving continue IV lasix unable to tolerate BB due to labile BP, will decreased BB dose to Metoprolol 12.5mg PO qd cardiology on board and evaluation appreciated continue to monitor daily weights, I/Os, fluid restriction diet will closely monitor respiratory status bipap support at bedtime will speak with cardiology in regards to scheduling ICD while hospitalized (2) Bilateral inguinal hernia Current Visit: No Status: Chronic Assessment and plan: clinically asymptomatic outpatient follow up No abd pain or signs of strangulation present at this time Qualifiers: Obstruction and gangrene presence: without obstruction or gangrene Recurrence: not specified as recurrent Qualified Code(s): K40.20 - Bilateral inguinal hernia, without obstruction or gangrene, not specified as recurrent (3) COPD (chronic obstructive pulmonary disease) Current Visit: No Status: Chronic Assessment and plan: no signs of exacerbation continue home meds Qualifiers: COPD type: unspecified COPD Qualified Code(s): J44.9 - Chronic obstructive pulmonary disease, unspecified (4) Tachycardia Current Visit: Yes Status: Acute Assessment and plan: continues to have sinus tachycardia but clinically asymptomatic cardiology aware and continue to monitor BB if BP allows will continue to monitor (5) DVT prophylaxis Current Visit: Yes Status: Acute Assessment and plan: Heparin SQ - Time Spent With Patient Total time spent is greater than 50% in coordination of care (as documented) at patient's floor/unit and/or counseling patient: - Subjective Interval history: Pt seen and examined with family present at bedside. As per son (present at bedside), pt was not able to sleep overnight, anytime he would fall asleep, he would wake up gasping for air. As per daughter, pt is a snores very loudly at home and has been told to get a sleep study. Given presentation, pt maybe be having apneic spells overnight which is keeping him awake. Will provide with bipap support overnight and closely monitor O2 saturationg. pt and family reported that he is scheduled for an ICD placement on 02/18/18, if remains inpatient, will follow up with cardiology for placement of ICD while patient is hospitalized - Constitutional Vitals: Temp Pulse Resp BP Pulse Ox 97.5 F L 121 16 93/61 93 02/16/18 07:25 02/16/18 07:25 02/16/18 07:25 02/16/18 07:25 02/16/18 07:25 General appearance: Present: cooperative, A&O X 3, no acute distress - Head Head exam: Present: atraumatic, normocephalic - Eye Eye exam: Present: conjuntiva pink, sclera anicteric - Respiratory Respiratory exam: Absent: respiratory distress, wheezes (bibasilar rales- improved from previous day) - Cardiovascular Cardiovascular exam: Present: RRR, +S1, +S2. Absent: diastolic murmur, gallop, rubs, systolic murmur - GI/Abdominal GI/Abdominal exam: Present: normal bowel sounds, soft, no peritoneal signs. Absent: distended, tenderness - Extremities Exam Extremities exam: Present: warm, radial pulses palpable and symmetrical. Absent : calf tenderness, tenderness - Neurological Exam Neurological exam: Present: oriented X3 Internal Medicine: Result - Labs CBC & Chem 7: 02/16/18 03:41 02/16/18 03:41 Labs: Short CBC 02/16/18 Range/Units 03:41 WBC 5.2 (4.3-11.1) K/mcL Hgb 10.9 L (12.9-16.9) g/dL Hct 33.9 L (37.5-50.1) % Plt Count 167 (140-400) K/mcL Neutrophils # 3.3 (1.6-8.9) K/mcL BMP 02/16/18 03:41 Sodium 137 Potassium 3.7 Chloride 100 Carbon Dioxide 27 BUN 29 H Creatinine 1.15 Glucose 109 H Calcium 8.9 - ABG Interpretation ABG results: PT/INR, D-dimer PT 13.2 Seconds (9.4-12.1) H 02/15/18 03:59 Consult Discharge Plan - Plan Referrals: Kirt Trevino DO [Primary Care Provider] - 02/21/18 8:15 am (patient will follow up with Acacia Escobar)
[2018-02-17 04:25] LABS: Basophils % 0.7 %; Eosinophils # 0.2 K/mcL (0.0-0.6); Eosinophils % 3.4 %; Hematocrit 36.5 % (37.5-50.1); Hemoglobin 11.6 g/dL (12.9-16.9); Immature Granulocytes % 0.2 % (0-4); Lymphocytes # 1.2 K/mcL (0.6-4.6); Lymphocytes % 21.3 %; Mean Corpuscular HGB Conc 31.8 g/dL (31.6-35.5); Mean Corpuscular Hemoglobin 29.7 pg (28.0-33.3); Mean Corpuscular Volume 93.6 fL (83.0-100.0); Mean Platelet Volume 10.3 fL (9.4-12.4); Monocytes # 0.6 K/mcL (0.0-1.3); Monocytes % 9.9 %; Neutrophils # 3.6 K/mcL (1.6-8.9); Nucleated Red Blood Cells 0.5 /100 WBC (0); Platelet Count 189 K/mcL (140-400); Red Cell Distribution Width 13.8 % (11.5-14.5); Segmented Neutrophils % 64.5 %
[2018-02-17 04:38] LABS: BUN/Creatinine Ratio 23 (6-26); Blood Urea Nitrogen 25 mg/dL (8-23); Calcium 9.1 mg/dL (8.6-10.3); Carbon Dioxide 32 mEq/L (23-29); Chloride 103 mEq/L (98-107); Glucose 110 mg/dL (70-105); Magnesium 1.9 mg/dL (1.6-2.6); Osmolality,Calculated 289 (280-300); Phosphorous 3.4 mg/dL (2.7-4.5); Potassium 3.4 mEq/L (3.5-5.1); Sodium 137 mEq/L (136-145); eGFR For African Americans > 60 (> 60); eGFR For Non-African Americans > 60 (> 60)
[2018-02-17] MEDS: *HR* Heparin 5,000 UNIT/ML VIAL SQ SCH ×2 (06:06→17:17)
[2018-02-17] MEDS: Aspirin Enteric Coated 81 MG Tablet PO SCH (09:18)
[2018-02-17] MEDS: Simethicone 80 MG TAB.CHEW PO SCH ×4 (09:19→22:05)
[2018-02-17] MEDS: Furosemide 40 MG/4 ML VIAL IVP SCH (09:20)
--- NOTE | 2018-02-17 12:31 | Cardiology Progress Note ---
Date of Encounter: 02/17/18 Time of Encounter: 12:22 Assessment and Plan (1) Nonischemic cardiomyopathy Current Visit: Yes Status: Acute Known NICMP. EF 30%. [facility] 04/2017 minimal CAD. EKG diffuse changes throughout. Troponin negative x 4. BB as BP tolerates. No ACEi due to hypotension. Planned to have ICD inserted 02/18/18. NPO after midnight for procedure. (2) Acute on chronic systolic (congestive) heart failure Current Visit: Yes Status: Acute BNP 2373, CXR and CT consistent with CHF. Known EF of 30% 08/2017 most recent TTE. Presented with 8lb weight gain in the past week, worsening dyspnea and abdominal distention. Per pt, was just started on PO Lasix last week, then dose was decreased due to concerns of dehydration. Upon talking to pt, also suspect excess Na intake. Agree with IV diuresis--40mg Lasix daily as BP allows. Transition to PO maintenance dose of Lasix at d/c. Has clinically improved--dyspnea and abdominal distention significantly improved. Recommend daily weights, strict I/Os, Na and fluid restriction. (3) Tachycardia Current Visit: Yes Status: Acute Sinus tach with ectopy. BB has been held due to hypotension. BB as BP allows. Discussion w patient/family: The assessment and plan as outlined above was discussed with the patient and/or family members who expressed understanding and agreement. All questions were answered. Thank you for involving us in the care of your patient. Please call with any questions. I will discuss all the above with Dr. Rouse and make changes as necessary. Subjective Principal diagnosis: NICMP, CHF Interval history: Reconsulted for ICD insertion, planned as outpt tomorrow. Clinically he has improved from a heart failure standpoint--reports dyspnea and abdominal distention have greatly improved. HR currently low 100s, Sinus tach. Objective Vital Signs, Last 4 Hours Temp Pulse Resp BP Pulse Ox 02/17/18 11:00 98.4 F 96 14 90/56 95 Vital Signs Temp Pulse Resp BP Pulse Ox 02/17/18 11:00 98.4 F 96 14 90/56 95 02/17/18 08:07 98.6 F 94 16 93/57 93 02/17/18 04:14 98.3 F 81 16 91/53 95 02/17/18 01:00 16 90/62 94 02/17/18 00:38 97.9 F 122 16 62 94 02/16/18 23:37 20 106/71 91 02/16/18 22:30 106/71 02/16/18 19:24 97.7 F 95 16 88/60 94 02/16/18 16:46 97.7 F 90 16 93/59 95 Intake and Output 02/16/18 02/17/18 02/17/18 23:59 07:59 15:59 Intake Total 120 / 120 240 / 240 Output Total 1300 / 1300 240 / 240 Balance -1180 / -1180 -240 / -240 240 / 240 Intake: Oral 120 / 120 240 / 240 Output: Urine 1300 / 1300 240 / 240 Other: Meal Breakfast Percent of Meal Consumed 100% Weight 68.22 kg Patient Weight 02/17/18 23:59 Weight 68.22 kg General: Conversant, No Apparent Distress HEENT: Atraumatic, Normocephaly, Mucus Membranes Moist Neck: No JVD, Normal carotid pulses Cardiac: Reg Rate and Rhythm, Normal S1 and S2, No Murmur Lungs: Other (diminished) Neuro: Alert and responsive, No focal deficits noted Abdomen: Soft, Non-Tender Skin: No rashes noted on visualized skin Musculoskeletal: No Chest Wall Tenderness Extremities: No Clubbing, No Cyanosis, No Edema, Normal Pulses Results 02/17/18 02:58 02/17/18 02:58 Lab Results 02/17/18 02/17/18 02:58 02:58 WBC 5.6 Hgb 11.6 L Hct 36.5 L Plt Count 189 Sodium 137 Potassium 3.4 L Chloride 103 Carbon Dioxide 32 H BUN 25 H Creatinine 1.08 Glucose 110 H Calcium 9.1 Magnesium 1.9 Short CBC 02/17/18 Range/Units 02:58 WBC 5.6 (4.3-11.1) K/mcL Hgb 11.6 L (12.9-16.9) g/dL Hct 36.5 L (37.5-50.1) % Plt Count 189 (140-400) K/mcL Neutrophils # 3.6 (1.6-8.9) K/mcL BMP 02/17/18 Range/Units 02:58 Sodium 137 (136-145) mEq/L Potassium 3.4 L (3.5-5.1) mEq/L Chloride 103 (98-107) mEq/L Carbon Dioxide 32 H (23-29) mEq/L BUN 25 H (8-23) mg/dL Creatinine 1.08 (0.70-1.30) mg/dL Glucose 110 H (70-105) mg/dL Calcium 9.1 (8.6-10.3) mg/dL Active Medications Albuterol Sulfate (Albuterol Inhaler) 2 puff IH Q4H PRN PRN Reason: Shortness Of Breath Stop: 08/15/18 18:24 Aspirin (Aspirin Ec) 81 mg PO DAILY [facility] Stop: 08/15/18 18:31 Last Admin: 02/17/18 09:18 Dose: 81 mg Furosemide (Lasix) 40 mg PO DAILY [facility] Stop: 08/20/18 09:01 Heparin Sodium (Porcine) (Heparin) 5,000 unit SQ Q12HR KARI Stop: 08/16/18 06:01 Last Admin: 02/17/18 06:06 Dose: 5,000 unit Melatonin (Melatonin) 3 mg PO HS PRN PRN Reason: Sleep Stop: 08/15/18 18:24 Last Admin: 02/15/18 21:57 Dose: 3 mg Metoprolol Tartrate (Lopressor) 12.5 mg PO BID [facility] Stop: 08/17/18 21:01 Last Admin: 02/17/18 11:21 Dose: Not Given Naloxone HCl (Narcan) 0.4 mg IVP Q2MIN PRN PRN Reason: SEE COMMENTS Stop: 08/15/18 18:19 Sertraline HCl (Zoloft) 100 mg PO DAILY [facility] Stop: 08/15/18 18:31 Last Admin: 02/17/18 09:18 Dose: 100 mg Simethicone (Gas-X) 120 mg PO QID [facility] Stop: 08/15/18 21:01 Last Admin: 02/17/18 09:19 Dose: 120 mg Tramadol HCl (Ultram) 50 mg PO Q6HR PRN PRN Reason: Moderate Pain Stop: 08/15/18 18:19 Last Admin: 02/13/18 20:43 Dose: 50 mg Zolpidem Tartrate (Ambien) 5 mg PO HS PRN; Protocol PRN Reason: Insomnia Stop: 08/16/18 17:49 Last Admin: 02/16/18 22:50 Dose: 5 mg - EKG Interpretation EKG results cardiology: other (12 hr tele AVG HR 102, sinus tach) Consult Discharge Plan - Plan Referrals: Kirt Trevino, [Primary Care Provider] - 02/21/18 8:15 am (patient will follow up with Acacia Escobar)
[2018-02-17] MEDS ORDERED: CeFAZolin Syr 2,000MG/20 ML 2,000 MG/20 ML SYRINGE IVPB ONE (13:17)
--- NOTE | 2018-02-17 13:23 | Internal Med Progress Note ---
Date of Encounter: 02/17/18 Time of Encounter: 13:14 - Assessment and plan (1) Acute on chronic systolic (congestive) heart failure Current Visit: Yes Status: Acute Assessment and plan: Pt has history of Non-ischemic heart disease, recent LHC revealed normal coronary artery system (2017). ystolic heart failure with ejection fraction 30% (08/2017 ECHO). NYHA stage 3- 4. Clinically improving continue IV lasix, will transition to PO lasix in am unable to tolerate BB due to labile BP, decreased BB dose to Metoprolol 12.5mg PO qd cardiology on board and evaluation appreciated continue to monitor daily weights, I/Os, fluid restriction diet will closely monitor respiratory status bipap support at bedtime ICD in am (2) Bilateral inguinal hernia Current Visit: No Status: Chronic Assessment and plan: clinically asymptomatic outpatient follow up No abd pain or signs of strangulation present at this time Qualifiers: Qualified Code(s): K40.20 - Bilateral inguinal hernia, without obstruction or gangrene, not specified as recurrent (3) COPD (chronic obstructive pulmonary disease) Current Visit: No Status: Chronic Assessment and plan: no signs of exacerbation continue home meds Qualifiers: Qualified Code(s): J44.9 - Chronic obstructive pulmonary disease, unspecified (4) Tachycardia Current Visit: Yes Status: Acute Assessment and plan: continues to have sinus tachycardia but clinically asymptomatic cardiology aware and continue to monitor BB if BP allows will continue to monitor (5) DVT prophylaxis Current Visit: Yes Status: Acute Assessment and plan: Heparin SQ - Time Spent With Patient Total time spent is greater than 50% in coordination of care (as documented) at patient's floor/unit and/or counseling patient: - Subjective Interval history: Pt seen and examined with family present at bedside. Pt reports of sleeping well overnight with bipap support. Pt will likely need sleep study as outpatient for CPAP/Bipap qualification. Pt scheduled for ICD placement in am will start PO lasix in am - Constitutional Vitals: Temp Pulse Resp BP Pulse Ox 98.4 F 96 14 90/56 95 02/17/18 11:00 02/17/18 11:00 02/17/18 11:00 02/17/18 11:00 02/17/18 11:00 General appearance: Present: cooperative, A&O X 3, no acute distress - Head Head exam: Present: atraumatic, normocephalic - Respiratory Respiratory exam: Absent: respiratory distress, wheezes (equal air entry bilaterally ) - Cardiovascular Cardiovascular exam: Present: RRR, +S1, +S2 - GI/Abdominal GI/Abdominal exam: Present: normal bowel sounds, soft, no peritoneal signs. Absent: distended, tenderness - Extremities Exam Extremities exam: Present: warm, radial pulses palpable and symmetrical. Absent : calf tenderness, pedal edema - Neurological Exam Neurological exam: Present: oriented X3 Internal Medicine: Result - Labs CBC & Chem 7: 02/17/18 02:58 02/17/18 02:58 Labs: Short CBC 02/17/18 Range/Units 02:58 WBC 5.6 (4.3-11.1) K/mcL Hgb 11.6 L (12.9-16.9) g/dL Hct 36.5 L (37.5-50.1) % Plt Count 189 (140-400) K/mcL Neutrophils # 3.6 (1.6-8.9) K/mcL BMP 02/17/18 02:58 Sodium 137 Potassium 3.4 L Chloride 103 Carbon Dioxide 32 H BUN 25 H Creatinine 1.08 Glucose 110 H Calcium 9.1 - ABG Interpretation ABG results: PT/INR, D-dimer PT 13.2 Seconds (9.4-12.1) H 02/15/18 03:59 Consult Discharge Plan - Plan Referrals: Kirt Trevino DO [Primary Care Provider] - 02/21/18 8:15 am (patient will follow up with Acacia Escobar)
[2018-02-17] MEDS: Sennosides/Docusate Sodium TABLET PO SCH (22:06)
[2018-02-18 06:17] LABS: Basophils # 0.1 K/mcL (0.0-0.2); Basophils % 0.8 %; Eosinophils # 0.2 K/mcL (0.0-0.6); Eosinophils % 3.4 %; Hematocrit 35.5 % (37.5-50.1); Hemoglobin 11.3 g/dL (12.9-16.9); Immature Granulocytes % 0.3 % (0-4); Lymphocytes # 1.1 K/mcL (0.6-4.6); Lymphocytes % 18.7 %; Mean Corpuscular HGB Conc 31.8 g/dL (31.6-35.5); Mean Corpuscular Hemoglobin 30.1 pg (28.0-33.3); Mean Corpuscular Volume 94.4 fL (83.0-100.0); Monocytes # 0.6 K/mcL (0.0-1.3); Monocytes % 9.5 %; Nucleated Red Blood Cells 0.5 /100 WBC (0); Platelet Count 185 K/mcL (140-400); Red Blood Count 3.76 M/mcL (4.19-5.50); Red Cell Distribution Width 13.7 % (11.5-14.5); Segmented Neutrophils % 67.3 %
[2018-02-18 06:35] LABS: BUN/Creatinine Ratio 23 (6-26); Blood Urea Nitrogen 23 mg/dL (8-23); Carbon Dioxide 31 mEq/L (23-29); Chloride 102 mEq/L (98-107); Glucose 100 mg/dL (70-105); Osmolality,Calculated 292 (280-300); Potassium 3.6 mEq/L (3.5-5.1); Sodium 139 mEq/L (136-145); eGFR For African Americans > 60 (> 60); eGFR For Non-African Americans > 60 (> 60)
[2018-02-18] MEDS: *HR* Heparin 5,000 UNIT/ML VIAL SQ SCH ×2 (06:55→17:59)
[2018-02-18] MEDS: Aspirin Enteric Coated 81 MG Tablet PO SCH (08:32)
[2018-02-18] MEDS: Furosemide 40 MG TABLET PO SCH (08:32)
[2018-02-18] MEDS: Sennosides/Docusate Sodium TABLET PO SCH ×2 (08:32→20:15)
[2018-02-18] MEDS: Metoprolol XL (24 HR) Succ 25 MG TAB.ER.24H PO SCH (08:33)
[2018-02-18] MEDS: Simethicone 80 MG TAB.CHEW PO SCH ×4 (08:54→20:15)
[2018-02-18] MEDS ORDERED: CeFAZolin Syr 2,000MG/20 ML 2,000 MG/20 ML SYRINGE IVPB ONE (13:00)
[2018-02-18] MEDS ORDERED: ISOVUE-370 200 ML INFUS..BTL IV ONE (13:02)
[2018-02-18] MEDS ORDERED: *HR* FentaNYL (PF) 100 MCG/2 ML VIAL ONE (13:02)
[2018-02-18] MEDS ORDERED: *HR* Midazolam HCl 2 MG/2 ML VIAL ONE (13:02)
[2018-02-18] MEDS ORDERED: 0.9 % Sodium Chloride 1,000 ML ONE ×2 (13:03→13:04)
--- NOTE | 2018-02-18 13:11 | Pre-Sedation Evaluation ---
Pre-sedation evaluation - Pre-sedation checklist Date of procedure: 02/18/18 Procedure: Pacer placement Recent Vitals: Last Vital Signs Temp 98.3 F 02/18/18 11:18 Pulse 97 02/18/18 11:18 Resp 18 02/18/18 11:18 BP 95/58 02/18/18 11:18 Pulse Ox 93 02/18/18 04:22 H&P (including ROS) documented in medical record: Yes Previous reaction to sedatives/anesthetics: No Dietary Status: NPO after Midnight Airway Assessment: Patient can open mouth completely, TMJ function normal, Micrognathia (under-bite, receding chin) absent Dentition: No loose teeth or bridges Possible difficult airway: No ASA Classification *see protocol: CLASS II-Mild systemic disease Plan of Care: Pt appropriate candidate for procedure/moderate/conscious sedation , Risks/benefits of procedure/sedation discussed w/ patient/family
--- NOTE | 2018-02-18 16:45 | Internal Med Progress Note ---
Date of Encounter: 02/18/18 Time of Encounter: 16:42 - Assessment and plan (1) Acute on chronic systolic (congestive) heart failure Current Visit: Yes Status: Acute Assessment and plan: Pt has history of Non-ischemic heart disease, recent LHC revealed normal coronary artery system (2017). Systolic heart failure with ejection fraction 30% (08/2017 ECHO). NYHA stage 3- 4. Clinically improving started PO lasix unable to tolerate BB due to labile BP, decreased BB dose to Metoprolol 12.5mg PO qd cardiology on board and evaluation appreciated continue to monitor daily weights, I/Os, fluid restriction diet will closely monitor respiratory status bipap support at bedtime s/p ICD placement today (02/18/18) (2) Bilateral inguinal hernia Current Visit: No Status: Chronic Assessment and plan: clinically asymptomatic outpatient follow up No abd pain or signs of strangulation present at this time Qualifiers: Obstruction and gangrene presence: without obstruction or gangrene Recurrence: not specified as recurrent Qualified Code(s): K40.20 - Bilateral inguinal hernia, without obstruction or gangrene, not specified as recurrent (3) COPD (chronic obstructive pulmonary disease) Current Visit: No Status: Chronic Assessment and plan: no signs of exacerbation continue home meds (4) Tachycardia Current Visit: Yes Status: Acute Assessment and plan: continues to have sinus tachycardia but clinically asymptomatic cardiology aware and continue to monitor BB if BP allows will continue to monitor (5) DVT prophylaxis Current Visit: Yes Status: Acute Assessment and plan: Heparin SQ - Time Spent With Patient Total time spent is greater than 50% in coordination of care (as documented) at patient's floor/unit and/or counseling patient: - Subjective Interval history: Pt seen and examined with family present at bedside. Pt is s/p ICD placement. Tolerated the procedure well. Currently HR: 95 Denies any chest pain or sob. No overnight events reported Tentative d/c in am - Constitutional Vitals: Temp Pulse Resp BP Pulse Ox 97.4 F L 124 17 98/58 94 02/18/18 16:15 02/18/18 16:15 02/18/18 16:15 02/18/18 16:15 02/18/18 16:15 General appearance: Present: cooperative, A&O X 3, no acute distress - Head Head exam: Present: atraumatic, normocephalic - Eye Eye exam: Present: conjuntiva pink, sclera anicteric - Respiratory Respiratory exam: Present: CTAB. Absent: respiratory distress, wheezes - Cardiovascular Cardiovascular exam: Present: RRR, +S1, +S2. Absent: diastolic murmur, gallop, rubs, systolic murmur - GI/Abdominal GI/Abdominal exam: Present: normal bowel sounds, soft, no peritoneal signs. Absent: distended, tenderness - Extremities Exam Extremities exam: Present: warm, radial pulses palpable and symmetrical. Absent : calf tenderness, pedal edema - Neurological Exam Neurological exam: Present: oriented X3 Internal Medicine: Result - Labs CBC & Chem 7: 02/18/18 05:40 02/18/18 05:40 Labs: Short CBC 02/18/18 Range/Units 05:40 WBC 5.9 (4.3-11.1) K/mcL Hgb 11.3 L (12.9-16.9) g/dL Hct 35.5 L (37.5-50.1) % Plt Count 185 (140-400) K/mcL Neutrophils # 4.0 (1.6-8.9) K/mcL BMP 02/18/18 05:40 Sodium 139 Potassium 3.6 Chloride 102 Carbon Dioxide 31 H BUN 23 Creatinine 0.98 Glucose 100 Calcium 9.0 - ABG Interpretation ABG results: PT/INR, D-dimer PT 13.2 Seconds (9.4-12.1) H 02/15/18 03:59 Consult Discharge Plan - Plan Referrals: Kirt Trevino DO [Primary Care Provider] - 02/21/18 8:15 am (patient will follow up with Acacia Escobar)
[2018-02-18] MEDS: traMADol 50 MG TABLET PO PRN (20:22)
[2018-02-18] MEDS: Melatonin 3 MG TABLET PO PRN (23:22)
[2018-02-19] MEDS: traMADol 50 MG TABLET PO PRN (03:07)
[2018-02-19] MEDS: *HR* Heparin 5,000 UNIT/ML VIAL SQ SCH (05:41)
[2018-02-19] MEDS: Furosemide 40 MG TABLET PO SCH (08:46)
[2018-02-19] MEDS: Sennosides/Docusate Sodium TABLET PO SCH (08:46)
[2018-02-19] MEDS: Metoprolol XL (24 HR) Succ 25 MG TAB.ER.24H PO SCH (08:47)
[2018-02-19] MEDS: Aspirin Enteric Coated 81 MG Tablet PO SCH (08:47)
[2018-02-19] MEDS: Simethicone 80 MG TAB.CHEW PO SCH (08:47)
--- NOTE | 2018-02-19 11:47 | Cardiology Progress Note ---
Date of Encounter: 02/19/18 Time of Encounter: 12:08 Assessment and Plan (1) Nonischemic cardiomyopathy Current Visit: Yes Status: Acute Known NICMP. EF 30%. [facility] 04/2017 minimal CAD. EKG diffuse changes throughout. Troponin negative x 4, then 0.04--nondiagnostic. BB as BP tolerates. Hold for systolic <100. No ACEi due to hypotension. ICD inserted yesterday. No acute complaints today. CXR stable. Device check okay. Device site steri strips intact. No bleeding, hematoma or ecchymosis noted. Restrictions discussed. Cardiology signing off. Reconsult PRN. Follow-up as outpt in 1 week for wound check, 4-6 weeks device check and [address] Andrew Mercado. (2) Acute on chronic systolic (congestive) heart failure Current Visit: Yes Status: Acute BNP 2373, CXR and CT on presentation consistent with CHF. Known EF of 30% 2016 most recent TTE. Presented with 8lb weight gain in the past week, worsening dyspnea and abdominal distention. Per pt, was just started on PO Lasix last week, then dose was decreased due to concerns of dehydration. Upon talking to pt, also suspect excess Na intake. Was diuresed with IV Lasix, now switched to maintenance PO dosing, 40mg daily. Has clinically improved--dyspnea and abdominal distention significantly improved. CXR stable left pleural effusion and pulmonary edema resolved. Recommend daily weights, strict I/Os, Na and fluid restriction. Cardiology signing off. Reconsult PRN. Follow-up in 1-2 weeks as outpt for CHF. Will coordinate. (3) Tachycardia Current Visit: Yes Status: Acute Sinus tach with ectopy. BB has been held due to hypotension. BB as BP allows. Hold if systolic <100mmHg. Discussion w patient/family: The assessment and plan as outlined above was discussed with the patient and/or family members who expressed understanding and agreement. All questions were answered. Thank you for involving us in the care of your patient. Please call with any questions. I will discuss all the above with Dr. Rouse and Dr. Andrew Mercado and make changes as necessary. Subjective Principal diagnosis: NICMP, CHF Interval history: S/P ICD insertion yesterday. CXR shows no pneumothorax, pulmonary edema has resolved, stable left pulmonary effusion. Device check okay. Pt denies acute complaints. Objective Vital Signs, Last 4 Hours Temp Pulse Resp BP Pulse Ox 02/19/18 08:33 90/52 02/19/18 08:04 98.9 F 140 22 83/49 92 Vital Signs Temp Pulse Resp BP Pulse Ox 02/19/18 11:54 97.9 F 97 20 90/56 97 02/19/18 08:33 90/52 02/19/18 08:04 98.9 F 140 22 83/49 92 02/19/18 04:49 97.5 F L 115 14 88/54 94 02/19/18 00:19 98.9 F 137 16 92/61 94 02/18/18 23:45 140 91/61 92 02/18/18 23:14 140 94/63 92 02/18/18 21:58 99.1 F 140 16 101/71 94 02/18/18 19:47 98.0 F 138 16 94/60 92 02/18/18 16:15 97.4 F L 124 17 98/58 94 02/18/18 15:45 97.4 F L 126 18 95/63 94 02/18/18 15:30 98.0 F 120 18 94/56 94 02/18/18 15:15 98.0 F 120 17 99/68 92 02/18/18 15:00 97.7 F 124 17 95/63 93 02/18/18 14:45 97.8 F 120 16 96/60 92 02/18/18 14:34 97.7 F 96 18 93/53 93 Intake and Output 02/18/18 02/19/18 02/19/18 23:59 07:59 15:59 Intake Total 480 / 480 Output Total 140 / 140 0 / 0 Balance -140 / -140 480 / 480 Intake: Oral 480 / 480 Output: Urine 140 / 140 0 / 0 Other: Meal Breakfast Percent of Meal Consumed 55% Weight 67.4 kg Patient Weight 02/19/18 23:59 Weight 67.4 kg General: Conversant, No Apparent Distress HEENT: Atraumatic, Normocephaly, Mucus Membranes Moist Neck: No JVD, Normal carotid pulses Cardiac: Reg Rate and Rhythm, Normal S1 and S2, No Murmur Lungs: Other (diminished) Neuro: Alert and responsive, No focal deficits noted Abdomen: Soft, Non-Tender Skin: Other (left chest device site steri strips intact. No bleeding, hematoma or ecchymosis noted.) Musculoskeletal: No Chest Wall Tenderness Extremities: No Clubbing, No Cyanosis, No Edema, Normal Pulses Results 02/18/18 05:40 02/18/18 05:40 Lab Results 02/18/18 23:08 Troponin I 0.04 H* Cardiac Enzymes 02/18/18 Range/Units 23:08 Troponin I 0.04 H* (< 0.04) ng/mL Impressions Chest X-Ray 02/19/18 09:32 IMPRESSION: 1. Interval worsening of the left base opacity concerning for infection or atelectasis. 2. Improved right pleural effusion. Stable left pleural effusion. 3. COPD. 4. Resolved pulmonary edema. D/ / 02/19/2018 10:20:13 Dora Peterson MD / abran Interpreting Provider: Dora Peterson MD Active Medications Albuterol Sulfate (Albuterol Inhaler) 2 puff IH Q4H PRN PRN Reason: Shortness Of Breath Stop: 08/15/18 18:24 Aspirin (Aspirin Ec) 81 mg PO DAILY [facility] Stop: 08/15/18 18:31 Last Admin: 02/19/18 08:47 Dose: 81 mg Furosemide (Lasix) 40 mg PO DAILY [facility] Stop: 08/20/18 09:01 Last Admin: 02/19/18 08:46 Dose: 40 mg Heparin Sodium (Porcine) (Heparin) 5,000 unit SQ Q12HR [facility] Stop: 08/16/18 06:01 Last Admin: 02/19/18 05:41 Dose: 5,000 unit Melatonin (Melatonin) 3 mg PO HS PRN PRN Reason: Sleep Stop: 08/15/18 18:24 Last Admin: 02/18/18 23:22 Dose: 3 mg Metoprolol Succinate (Toprol Xl) 12.5 mg PO DAILY [facility] Stop: 08/20/18 09:01 Last Admin: 02/19/18 08:47 Dose: Not Given Naloxone HCl (Narcan) 0.4 mg IVP Q2MIN PRN PRN Reason: SEE COMMENTS Stop: 08/15/18 18:19 Senna/Docusate Sodium (Senna Plus) 2 each PO BID [facility] PRN Reason: Protocol Stop: 08/19/18 21:01 Last Admin: 02/19/18 08:46 Dose: 2 each Sertraline HCl (Zoloft) 100 mg PO DAILY [facility] Stop: 08/15/18 18:31 Last Admin: 02/19/18 08:47 Dose: 100 mg Simethicone (Gas-X) 120 mg PO QID [facility] Stop: 08/15/18 21:01 Last Admin: 02/19/18 08:47 Dose: 120 mg Tramadol HCl (Ultram) 50 mg PO Q6HR PRN PRN Reason: Moderate Pain Stop: 08/15/18 18:19 Last Admin: 02/19/18 03:07 Dose: 50 mg Zolpidem Tartrate (Ambien) 5 mg PO HS PRN; Protocol PRN Reason: Insomnia Stop: 08/16/18 17:49 Last Admin: 02/17/18 22:50 Dose: 5 mg - Imaging and Cardiology Chest Xray: report reviewed - EKG Interpretation EKG results cardiology: other (12 hr tele AVG HR 126, sinus/atrial tach) Consult Discharge Plan - Plan Additional Instructions: ACTIVITY: Moderate activity for the next 7 days. No lifting more than 5 pounds ( gallon of milk) for 4-6 weeks. Avoid lifting your arm on the same side as the device for 4 weeks. BATHING /SHOWERING: Do not remove the large bandage over the site for 2 days. Do not allow the device to get wet for 7-10 days. You may bathe/shower, but do not use soap and water on the site. When bathing, keep the site dry by covering with Saran wrap or a towel. WOUND CARE: The white steri-strips will start to peel away and come off after 14 days, or your doctor will remove them after [address] into or on top of the incision. Do not use cotton swabs. Do not use any antibiotic ointment or Vitamin E on the site. REMINDERS: You may use electrical devices, such as, microwaves, hair dryers, electric razors, electric blankets, etc. as long as they are in good condition and kept 6 -8 inches away from the device. It is recommended to use cell phones on the opposite side of your device. Notify security personnel at the airport that you have a device before you go through airport security screening. When at places with security monitors, such as a grocery store, do not linger near these monitors. It is fine to walk past them in a normal manner. Refer to your owners manual for more specific directions. CARRY YOUR PACEMAKER/ICD CARD WITH YOU AT ALL TIMES Return to work as instructed per physician Resume driving as instructed per physician Keep all scheduled follow up appointments Resume medications as instructed Contact [facility] ( ) if: You develop excessive bleeding from insertion or wound site not controlled by applying pressure You develop a fever greater than 101 degrees Fahrenheit Your incision becomes reddened at or around the site Your incision develops yellowish or greenish drainage or development of white pimple-like bumps You experience excessive pain You develop swelling in your ankles You experience muscle switching You develop excessive hiccupping If you experience chest pain, shortness of breath, dizziness, or extreme tiredness, stop the activity and rest. Please notify [facility] office if you experience any of these symptoms and they are not relieved by rest please call 911! Referrals: Kirt Trevino DO [Primary Care Provider] - 02/21/18 8:15 am (patient will follow up with Acacia Escoabr)
[2018-02-19 12:01] VITALS: BP 90/56
--- NOTE | 2018-02-19 13:57 | Discharge Summary ---
- NOTES TO OUTPATIENT PROVIDER Notes to Outpatient Provider: Pt unable to tolerate BB due to labile BP and continues to have sinus tachycardia. Orders not resulted at time of discharge: Pending orders 02/17/18 12:41 EKG [ECG 12 lead ECG] [ECG] Stat 02/17/18 13:17 CL Insert ICD [CL] Routine Date of Encounter: 02/19/18 Time of Encounter: 13:54 - Discharge Diagnosis (1) Acute on chronic systolic (congestive) heart failure Priority: Primary Status: Acute (2) Bilateral inguinal hernia Priority: Secondary Status: Chronic Qualifiers: Obstruction and gangrene presence: without obstruction or gangrene Recurrence: not specified as recurrent Qualified Code(s): K40.20 - Bilateral inguinal hernia, without obstruction or gangrene, not specified as recurrent (3) COPD (chronic obstructive pulmonary disease) Priority: Secondary Status: Chronic (4) Tachycardia Priority: Secondary Status: Acute (5) DVT prophylaxis Priority: Secondary Status: Acute Hospital course: Mr. Mederos is a 82 year old male with PMH of CHF, COPD who was admitted for CHF exacerbation. Pt was followed by cardiology and started on IV diuresis. Pt responded well to therapy and was able to be titrated off oxygen therapy. He also had an ICD placement during this hospitalization. He continued to have labile BP and was unable to tolerate BB. He is noted to have sinus tachycardia and cardiology was aware of this finding. Pt was noted to require O2 overnight, due to which CXR was done this morning. CXR reported atelectasis and improvement of pleural effusions. Pt is saturating well on room air and he did not qualify for home oxygen with a six minute walk test. He lives with family and uses a walker to ambulate. At this time pt is afebrile and back to his baseline respiratory status. Pt is cleared by cardiology for discharge. Pt is medically stable and will be discharged to home with a follow up with PCP and cardiology. Discharge plan was discussed with patient and family, all are in agreement of the discharge care and plan. All questions were answered. Discharge discussed with: patient, family, nurse, social work, case management, reservoir engineering consultant - Time Spent with Patient Total time spent providing and/or coordinating discharge services: Greater than 30 minutes - Discharge Medications Prescriptions: Furosemide [Lasix] 40 mg PO DAILY #30 tablet Metoprolol XL (24 HR) Succ [Toprol Xl] 12.5 mg PO DAILY #30 tab.er.24h Home Medications: Aspirin [Lo-Dose Aspirin EC] 81 mg PO DAILY 08/25/16 [History] Sertraline [Zoloft] 100 mg PO DAILY 08/25/16 [History] Albuterol Sulfate [Ventolin Hfa] 2 puff IH Q4H PRN 02/13/18 [History] HYDROcodone/Acet 5/325 mg [[place] 5-325 mg] 1 - 2 tab PO Q4H PRN 02/13/18 [ History] Melatonin 3 mg PO HS PRN 02/13/18 [History] Simethicone [Gas Relief] 125 mg PO QID 02/13/18 [History] Furosemide [Lasix] 40 mg PO DAILY #30 tablet 02/19/18 [Rx] Metoprolol XL (24 HR) Succ [Toprol Xl] 12.5 mg PO DAILY #30 tab.er.24h 02/19/18 [Rx] Allergies/Adverse Reactions: 3 Allergy/AdvReac Type Severity Reaction Status Date / Time No Known Allergies Allergy Verified 01/27/18 13:13 Date of admission: 02/13/18 18:18 Primary care physician: Kirt Trevino DO Consults: 02/13/18 18:28 Consult to Cardiology [CONS] Routine Comment: Consulting Provider: Bola Pavon Reason for Consult: CHF Call Completed: Yes 02/14/18 10:37 dietary consult [Consult to Nutrition] [CONS] Routine Comment: Consulting Provider: NUTRITION Reason for Dietary Consult: Other 02/17/18 08:30 Consult to Cardiology [CONS] Routine Comment: Consulting Provider: Bola Pavon Reason for Consult: CHF exacerbation, needs ICD placement Call Completed: Yes 02/17/18 12:16 Consult to Physical Therapy [CONS] Routine Comment: Evaluate, develop and implement POC Reason for Consult: weakness Does patient have active BEDREST order?: No Is patient medically & hemodynamically stable?: Yes Patient assessed for mobility or mobilized this visit?: No 02/17/18 12:18 OT [Consult to Occupational Therapy] [CONS] Routine Comment: Evaluate, develop and implement POC Reason for Consult: weakness Does patient have active BEDREST order?: No Is patient medically & hemodynamically stable?: Yes Patient assessed for mobility or mobilized this visit?: No Discharging clinician: Isidra Ruth Anticipated date of discharge: 02/19/18 - Constitutional Vitals: Temp Pulse Resp BP Pulse Ox 97.9 F 97 20 90/56 91 02/19/18 11:54 02/19/18 11:54 02/19/18 11:54 02/19/18 11:54 02/19/18 13:35 General appearance: Present: cooperative, A&O X 3, no acute distress - Head Head exam: Present: atraumatic, normocephalic - Eye Eye exam: Present: conjuntiva pink, sclera anicteric - Respiratory Respiratory exam: Absent: rales, respiratory distress, wheezes (equal air entry bilaterally) - Cardiovascular Cardiovascular exam: Present: +S1, +S2, tachycardia (sinus tachycardia). Absent : diastolic murmur, gallop, rubs, systolic murmur - GI/Abdominal GI/Abdominal exam: Present: normal bowel sounds, soft, no peritoneal signs. Absent: distended, tenderness - Extremities Exam Extremities exam: Present: warm, radial pulses palpable and symmetrical. Absent : calf tenderness, pedal edema - Neurological Exam Neurological exam: Present: oriented X3 - Patient Status Disposition: Home, Self-Care Condition: Good Functional capacity at discharge: uses cane/walker Overall status at discharge: patient is back to baseline - Discharge Instructions Instructions: Heart Failure (DC), Pacemaker (DC) Follow Up With: Kirt Trevino DO [Primary Care Provider] - 02/21/18 8:15 am (patient will follow up with Acacia Escobar) Additional Instructions: Please follow up with your primary care physician with five days after your discharge from the hospital. Please follow up with your pigment pumper within one week after your discharge from the hospital. Your home dose of lasix has been changed to lasix 40mg once a day Your home dose of metoprolol is changed to 12.5mg once a day closely monitor your blood pressure at home. hold your metoprolol dose of systolic blood pressure less than 100. resume all other home medications as prescribed by your primary care physician. ACTIVITY: Moderate activity for the next 7 days. No lifting more than 5 pounds ( gallon of milk) for 4-6 weeks. Avoid lifting your arm on the same side as the device for 4 weeks. BATHING /SHOWERING: Do not remove the large bandage over the site for 2 days. Do not allow the device to get wet for 7-10 days. You may bathe/shower, but do not use soap and water on the site. When bathing, keep the site dry by covering with Saran wrap or a towel. WOUND CARE: The white steri-strips will start to peel away and come off after 14 days, or your doctor will remove them after [address] into or on top of the incision. Do not use cotton swabs. Do not use any antibiotic ointment or Vitamin E on the site. REMINDERS: You may use electrical devices, such as, microwaves, hair dryers, electric razors, electric blankets, etc. as long as they are in good condition and kept 6 -8 inches away from the device. It is recommended to use cell phones on the opposite side of your device. Notify security personnel at the airport that you have a device before you go through airport security screening. When at places with security monitors, such as a grocery store, do not linger near these monitors. It is fine to walk past them in a normal manner. Refer to your owners manual for more specific directions. CARRY YOUR PACEMAKER/ICD CARD WITH YOU AT ALL TIMES Return to work as instructed per physician Resume driving as instructed per physician Keep all scheduled follow up appointments Resume medications as instructed Contact [facility] ( ) if: You develop excessive bleeding from insertion or wound site not controlled by applying pressure You develop a fever greater than 101 degrees Fahrenheit Your incision becomes reddened at or around the site Your incision develops yellowish or greenish drainage or development of white pimple-like bumps You experience excessive pain You develop swelling in your ankles You experience muscle switching You develop excessive hiccupping If you experience chest pain, shortness of breath, dizziness, or extreme tiredness, stop the activity and rest. Please notify [facility] office if you experience any of these symptoms and they are not relieved by rest please call 911! - Diet and Activity Activity: resume usual activities as tolerated Diet: low fat, low cholesterol, low salt diet
== END 2018-02-19 14:58 | disposition home or self-care (01) | DRG 227 ==
LOC: EMEROO 13:35 → 2ANU 13:35
PROVIDERS: ADMIT Internal Medicine; ATTEND Internal Medicine

== ENCOUNTER 2018-09-22 13:10 | Inpatient (IN) ==
[2018-09-22 14:51] LABS: Basophils % 0.9 %; Eosinophils # 0.1 K/mcL (0.0-0.6); Hematocrit 33.7 % (37.5-50.1); Hemoglobin 10.7 g/dL (12.9-16.9); Immature Granulocytes % 0.2 % (0-4); Lymphocytes # 0.9 K/mcL (0.6-4.6); Mean Corpuscular HGB Conc 31.8 g/dL (31.6-35.5); Mean Corpuscular Hemoglobin 30.1 pg (28.0-33.3); Mean Corpuscular Volume 94.9 fL (83.0-100.0); Mean Platelet Volume 9.9 fL (9.4-12.4); Monocytes # 0.5 K/mcL (0.0-1.3); Monocytes % 10.8 %; Platelet Count 135 K/mcL (140-400); Red Blood Count 3.55 M/mcL (4.19-5.50); Red Cell Distribution Width 16.9 % (11.5-14.5); Segmented Neutrophils % 66.1 %
--- NOTE | 2018-09-22 14:52 | Emergency Department Note ---
Disposition Clinical Impression: Bilateral pleural effusion Congestive heart failure Qualifiers: Heart failure type: unspecified Heart failure chronicity: unspecified Qualified Code(s): I50.9 - Heart failure, unspecified Disposition: Admitted As Inpatient Condition: Fair Referrals: NONE,PCP [Non-Partnered Physician] - Forms: ED Satisfaction Letter Time of Disposition: 16:16 General Adult HPI - General Chief complaint: ED Shortness of Breath/Dyspnea Stated complaint: WILIAN Time Seen by Provider: 09/22/18 13:19 Source: patient, family Limitations: no limitations Nursing Notes Reviewed: Yes Vital Signs Reviewed: Yes - History of Present Illness HPI Narrative: Patient is an 83-year-old male presenting to [facility] ED for a 6 month history of gradually progressive shortness of breath. Patient has a known history of congestive heart failure with an estimated EF of 30%. Patient states that he was taken off Lasix 2 weeks ago due to hypotension by his primary care physician. Patient states that since this time he has had increased shortness of breath, particularly at night when he lays flat. Patient states that his sleep has been greatly disturbed by his dyspnea. Patient's speech appears to be pressured, with desaturations noted during speech into the 80% range, but is otherwise saturating well in the high 90-100% range. Patient states that he does not wear oxygen at home. Onset (ago): month(s) Pain Scale: 0 Treatments Prior to Arrival: Aspirin - Related Data Home Medications Medication Instructions Recorded Confirmed Aspirin [Lo-Dose Aspirin EC] 81 mg PO DAILY 08/25/16 09/22/18 Sertraline [Zoloft] 100 mg PO DAILY 08/25/16 09/22/18 Allergies Allergy/AdvReac Type Severity Reaction Status Date / Time No Known Allergies Allergy Verified 01/27/18 13:13 Constitutional: Reports: weakness Eyes: Denies: vision change ENT ED: Reports: hearing loss. Denies: throat pain, dysphagia Cardiovascular: Reports: dyspnea on exertion, orthopnea, edema. Denies: chest pain Respiratory: Reports: dyspnea Gastrointestinal: Denies: abdominal pain, nausea, vomiting, hematochezia Genitourinary: Denies: hematuria Musculoskeletal: Reports: neck pain Neurological: Reports: weakness, numbness, paresthesias, vertigo. Denies: headache Endocrine: Reports: fatigue Past Medical History - Past Medical History Medical history: Reports: asthma, atrial fibrillation, cancer, CHF, COPD, hyperlipidemia Surgical history: Reports: cancer surgery Psychiatric history: Reports: anxiety, depression - Social History Smoking Status: Former smoker Smokeless Tobacco Status: Yes Alcohol use: Reports: none Drug use: Reports: none Physical Exam - General Limitations: no limitations General appearance: alert, in no apparent distress - Head Head exam: atraumatic, normocephalic, normal inspection - Eye Eye exam: Present: normal appearance, PERRL, EOMI. Absent: scleral icterus, conjunctival injection - Neck Neck exam: Present: trachea midline - Chest Chest inspection: Present: normal inspection, symmetric chest wall rise - Respiratory Respiratory exam: Present: normal lung sounds bilaterally. Absent: respiratory distress, wheezes, stridor, accessory muscle use, prolonged expiratory phase - Cardiovascular Cardiovascular exam: Present: regular rate, normal rhythm, +S1, +S2, +S3. Absent: JVD, +S4 - Abdominal Exam Abdominal exam: Present: soft, Non-Tender, normal bowel sounds. Absent: distention, guarding, rebound, rigidity - Neurological Exam Neurological exam: Present: alert, oriented X3 - Psychiatric Psychiatric exam: Present: normal affect, normal mood - Skin Skin exam: Present: warm, dry, intact, normal color. Absent: cyanosis, diaphoresis Course Course Narrative: Patient history, review systems and physical exam is concerning for cardiopulmonary etiology. CBC, BMP, BNP, lactic acid, hepatic panel, troponin, urinalysis, EKG/old EKG and chest x-ray will be performed to further assess for underlying etiology. Vital Signs Temperature 97.5 F L 09/22/18 13:26 Pulse Rate 86 09/22/18 13:26 Respiratory Rate 19 09/22/18 13:26 Blood Pressure 97/62 09/22/18 13:26 O2 Sat by Pulse Oximetry 99 09/22/18 13:26 Temperature 97.5 F L 09/22/18 14:07 Pulse Rate 82 09/22/18 16:41 Respiratory Rate 16 09/22/18 16:41 Blood Pressure 96/71 09/22/18 16:41 O2 Sat by Pulse Oximetry 100 09/22/18 16:41 Oxygen Delivery Oxygen Delivery Room Air Medical Decision Making - MDM Narrative Medical decision making narrative: Laboratory values and imaging results consistent with heart failure. Cardiology consulted for recommendations regarding outpatient management versus inpatient treatment. Relief Charge Nurse recommends inpatient admission to hospitalist service with cardiology consultation for further evaluation and management. - Lab Data Lab results reviewed: Yes I reviewed the patient's lab results. Result diagrams: 09/22/18 14:32 09/22/18 14:32 Lab Results 09/22/18 09/22/18 09/22/18 Range/Units 14:32 14:32 14:32 WBC 4.5 (4.3-11.1) K/mcL RBC 3.55 L (4.19-5.50) M/mcL Hgb 10.7 L (12.9-16.9) g/dL Hct 33.7 L (37.5-50.1) % MCV 94.9 (83.0-100.0) fL MCH 30.1 (28.0-33.3) pg MCHC 31.8 (31.6-35.5) g/dL RDW 16.9 H (11.5-14.5) % Plt Count 135 L (140-400) K/mcL MPV 9.9 (9.4-12.4) fL Immature Gran % 0.2 (0-4) % Seg Neutrophils % 66.1 % Lymphocytes % 20.0 % Monocytes % 10.8 % Eosinophils % 2.0 % Basophils % 0.9 % Neutrophils # 3.0 (1.6-8.9) K/mcL Lymphocytes # 0.9 (0.6-4.6) K/mcL Monocytes # 0.5 (0.0-1.3) K/mcL Eosinophils # 0.1 (0.0-0.6) K/mcL Basophils # 0.0 (0.0-0.2) K/mcL Sodium 138 (136-145) mEq/L Potassium 4.2 (3.5-5.1) mEq/L Chloride 104 (98-107) mEq/L Carbon Dioxide 27 (23-29) mEq/L BUN 24 H (8-23) mg/dL Creatinine 1.12 (0.70-1.30) mg/dL Est GFR ( Amer) > 60 (> 60) Est GFR (Non-Af Amer) > 60 (> 60) BUN/Creatinine Ratio 21 (6-26) Glucose 77 (70-105) mg/dL Calculated Osmolality 289 (280-300) Lactic Acid 1.4 (0.5-2.2) mmol/L Calcium 9.0 (8.6-10.3) mg/dL Total Bilirubin 0.7 (0.3-1.0) mg/dL Direct Bilirubin 0.2 (0.0-0.2) mg/dL Indirect Bilirubin 0.5 (0.0-1.2) mg/dL AST 17 (13-39) Units/L ALT 18 (7-52) Units/L Alkaline Phosphatase 115 H (34-104) Units/L Troponin I < 0.03 (< 0.04) ng/mL B-Natriuretic Peptide (Less than 100) pg/mL Serum Total Protein 6.4 (6.4-8.9) g/dL Albumin 3.7 (3.5-5.7) g/dL Globulin 2.7 (2.4-3.5) g/dL Albumin/Globulin Ratio 1.4 (1.1-2.2) Ur Specimen Adequacy Urine Color (Yellow) Urine Clarity (Clear) Urine pH (5.0-8.0) pH Units Ur Specific [place] (1.010-1.025) Urine Protein (Neg-Trace) mg/dL Urine Glucose (UA) (Normal) mg/dL Urine Ketones (Negative) mg/dL Urine Blood (Negative) Urine Nitrite (Negative) Urine Bilirubin (Negative) Urine Urobilinogen (Normal) mg/dL Ur Leukocyte Esterase (Negative) Urine Microscopic RBC (0-3) per hpf Urine Microscopic WBC (0-3) per hpf Ur Squamous Epith Cells (None-Few) per lpf Urine Bacteria (None-Few) per hpf Hyaline Casts (None-Few) per lpf Ur Culture Indicated? (NO) 09/22/18 09/22/18 Range/Units 14:32 15:26 WBC (4.3-11.1) K/mcL RBC (4.19-5.50) M/mcL Hgb (12.9-16.9) g/dL Hct (37.5-50.1) % MCV (83.0-100.0) fL MCH (28.0-33.3) pg MCHC (31.6-35.5) g/dL RDW (11.5-14.5) % Plt Count (140-400) K/mcL MPV (9.4-12.4) fL Immature Gran % (0-4) % Seg Neutrophils % % Lymphocytes % % Monocytes % % Eosinophils % % Basophils % % Neutrophils # (1.6-8.9) K/mcL Lymphocytes # (0.6-4.6) K/mcL Monocytes # (0.0-1.3) K/mcL Eosinophils # (0.0-0.6) K/mcL Basophils # (0.0-0.2) K/mcL Sodium (136-145) mEq/L Potassium (3.5-5.1) mEq/L Chloride (98-107) mEq/L Carbon Dioxide (23-29) mEq/L BUN (8-23) mg/dL Creatinine (0.70-1.30) mg/dL Est GFR ( Amer) (> 60) Est GFR (Non-Af Amer) (> 60) BUN/Creatinine Ratio (6-26) Glucose (70-105) mg/dL Calculated Osmolality (280-300) Lactic Acid (0.5-2.2) mmol/L Calcium (8.6-10.3) mg/dL Total Bilirubin (0.3-1.0) mg/dL Direct Bilirubin (0.0-0.2) mg/dL Indirect Bilirubin (0.0-1.2) mg/dL AST (13-39) Units/L ALT (7-52) Units/L Alkaline Phosphatase (34-104) Units/L Troponin I (< 0.04) ng/mL B-Natriuretic Peptide 3242 H (Less than 100) pg/mL Serum Total Protein (6.4-8.9) g/dL Albumin (3.5-5.7) g/dL Globulin (2.4-3.5) g/dL Albumin/Globulin Ratio (1.1-2.2) Ur Specimen Adequacy See below A Urine Color Dark Yellow (Yellow) Urine Clarity Cloudy A (Clear) Urine pH 6.0 (5.0-8.0) pH Units Ur Specific [place] 1.021 (1.010-1.025) Urine Protein Trace (Neg-Trace) mg/dL Urine Glucose (UA) Normal (Normal) mg/dL Urine Ketones Negative (Negative) mg/dL Urine Blood Negative (Negative) Urine Nitrite Negative (Negative) Urine Bilirubin Small H (Negative) Urine Urobilinogen Normal (Normal) mg/dL Ur Leukocyte Esterase Trace H (Negative) Urine Microscopic RBC 3-5 H (0-3) per hpf Urine Microscopic WBC 3-5 H (0-3) per hpf Ur Squamous Epith Cells Moderate H (None-Few) per lpf Urine Bacteria None Seen (None-Few) per hpf Hyaline Casts None Seen (None-Few) per lpf Ur Culture Indicated? YES A (NO) - Radiology Data Radiology results reviewed: Yes I reviewed the patient's radiology results. Chest X-Ray 09/22/18 13:20 IMPRESSION: 1. Stable mild enlargement of the cardiac silhouette. 2. Small bilateral pleural effusions. 3. Interval improvement of previously seen left base airspace opacity. 4. Emphysema. D/ / Rodo Del Toro MD / Rodo Del Toro MD Interpreting Provider: Rodo Del Toro MD - EKG Data EKG #1 EKG attestation: Yes I reviewed and interpreted this EKG. EKG results narrative: Repeat EKG shows a sinus rhythm with first degree AV block and premature ventricular complexes noted on the rhythm strip. Heart rate is 82 bpm, ND interval of 259 ms, QRS duration of 102 ms, QT/QTc interval 417/487 ms respectively. There are no significant ST segment elevations or depressions, EKG #2 EKG attestation: Yes I reviewed and interpreted this EKG. EKG results narrative: Repeat EKG shows a sinus rhythm with first degree AV block and premature ventricular complexes noted on the rhythm strip. Heart rate is 82 bpm, ND interval of 259 ms, QRS duration of 102 ms, QT/QTc interval 417/487 ms respectively. There are no significant ST segment elevations or depressions,
[2018-09-22 15:08] LABS: Troponin I < 0.03 ng/mL (< 0.04)
[2018-09-22 15:20] LABS: Alanine Aminotransferase 18 Units/L (7-52); Albumin 3.7 g/dL (3.5-5.7); Albumin/Globulin Ratio 1.4 (1.1-2.2); Alkaline Phosphatase 115 Units/L (34-104); Aspartate Amino Transferase 17 Units/L (13-39); BUN/Creatinine Ratio 21 (6-26); Bilirubin,Direct 0.2 mg/dL (0.0-0.2); Bilirubin,Indirect 0.5 mg/dL (0.0-1.2); Bilirubin,Total 0.7 mg/dL (0.3-1.0); Blood Urea Nitrogen 24 mg/dL (8-23); Carbon Dioxide 27 mEq/L (23-29); Chloride 104 mEq/L (98-107); Globulin 2.7 g/dL (2.4-3.5); Glucose 77 mg/dL (70-105); Osmolality,Calculated 289 (280-300); Potassium 4.2 mEq/L (3.5-5.1); Sodium 138 mEq/L (136-145); Total Protein 6.4 g/dL (6.4-8.9); eGFR For Non-African Americans > 60 (> 60)
[2018-09-22 15:42] LABS: Bilirubin,Urine Small (Negative); Blood,Urine Negative (Negative); Clarity,Urine Cloudy (Clear); Color,Urine Dark Yellow (Yellow); Glucose,Urine (UA) Normal (Normal); Ketones,Urine Negative (Negative); Leukocyte Esterase,Urine Trace (Negative); Nitrite,Urine Negative (Negative); Protein,Urine Trace mg/dL (Neg-Trace); Specific Gravity,Urine 1.021 (1.010-1.025); Urobilinogen,Urine Normal (Normal)
[2018-09-22 15:44] LABS: Bacteria,Urine None Seen per hpf (None-Few); Hyaline Casts,Urine None Seen per lpf (None-Few); Squamous Epithelial Cell,Urine Moderate per lpf (None-Few)
--- NOTE | 2018-09-22 16:19 | Emergency Department Note ---
Disposition Clinical Impression: Bilateral pleural effusion Congestive heart failure Qualifiers: Heart failure type: unspecified Heart failure chronicity: unspecified Qualified Code(s): I50.9 - Heart failure, unspecified Disposition: Admitted As Inpatient Condition: Fair Referrals: NONE,PCP [Non-Partnered Physician] - Forms: ED Satisfaction Letter General Adult HPI - General Chief complaint: ED Shortness of Breath/Dyspnea Stated complaint: WILIAN Time Seen by Provider: 09/22/18 13:19 Source: patient, family Limitations: no limitations - History of Present Illness Pain Scale: 0 Treatments Prior to Arrival: Aspirin - Related Data Home Medications Medication Instructions Recorded Confirmed Aspirin [Lo-Dose Aspirin EC] 81 mg PO DAILY 08/25/16 02/13/18 Sertraline [Zoloft] 100 mg PO DAILY 08/25/16 02/13/18 Albuterol Sulfate [Ventolin Hfa] 2 puff IH Q4H PRN 02/13/18 02/13/18 HYDROcodone/Acet 5/325 mg [[place] 1 - 2 tab PO Q4H PRN 02/13/18 02/13/18 5-325 mg] Melatonin 3 mg PO HS PRN 02/13/18 02/13/18 Simethicone [Gas Relief] 125 mg PO QID 02/13/18 02/13/18 Previous Rx's Medication Instructions Recorded Furosemide [Lasix] 40 mg PO DAILY #30 tablet 02/19/18 Metoprolol XL (24 HR) Succ [Toprol 12.5 mg PO DAILY #30 tab.er.24h 02/19/18 Xl] Allergies Allergy/AdvReac Type Severity Reaction Status Date / Time No Known Allergies Allergy Verified 01/27/18 13:13 Constitutional: Reports: weakness Eyes: Denies: vision change ENT ED: Reports: hearing loss. Denies: throat pain, dysphagia Cardiovascular: Reports: dyspnea on exertion, orthopnea, edema. Denies: chest pain Respiratory: Reports: dyspnea Gastrointestinal: Denies: abdominal pain, nausea, vomiting, hematochezia Genitourinary: Denies: hematuria Musculoskeletal: Reports: neck pain Neurological: Reports: weakness, numbness, paresthesias, vertigo. Denies: headache Endocrine: Reports: fatigue Past Medical History - Past Medical History Medical history: Reports: asthma, atrial fibrillation, cancer, CHF, COPD, hyperlipidemia Surgical history: Reports: cancer surgery Psychiatric history: Reports: anxiety, depression - Social History Smoking Status: Former smoker Smokeless Tobacco Status: Yes Alcohol use: Reports: none Drug use: Reports: none Physical Exam - General Limitations: no limitations General appearance: alert, in no apparent distress Course Vital Signs Temperature 97.5 F L 09/22/18 13:26 Pulse Rate 86 09/22/18 13:26 Respiratory Rate 19 09/22/18 13:26 Blood Pressure 97/62 09/22/18 13:26 O2 Sat by Pulse Oximetry 99 09/22/18 13:26 Temperature 97.5 F L 09/22/18 14:07 Pulse Rate 89 09/22/18 14:07 Respiratory Rate 16 09/22/18 14:07 Blood Pressure 85/64 09/22/18 14:07 O2 Sat by Pulse Oximetry 97 09/22/18 14:07 Oxygen Delivery Oxygen Delivery Room Air Medical Decision Making - Lab Data Result diagrams: 09/22/18 14:32 09/22/18 14:32 Lab Results 09/22/18 09/22/18 09/22/18 Range/Units 14:32 14:32 14:32 WBC 4.5 (4.3-11.1) K/mcL RBC 3.55 L (4.19-5.50) M/mcL Hgb 10.7 L (12.9-16.9) g/dL Hct 33.7 L (37.5-50.1) % MCV 94.9 (83.0-100.0) fL MCH 30.1 (28.0-33.3) pg MCHC 31.8 (31.6-35.5) g/dL RDW 16.9 H (11.5-14.5) % Plt Count 135 L (140-400) K/mcL MPV 9.9 (9.4-12.4) fL Immature Gran % 0.2 (0-4) % Seg Neutrophils % 66.1 % Lymphocytes % 20.0 % Monocytes % 10.8 % Eosinophils % 2.0 % Basophils % 0.9 % Neutrophils # 3.0 (1.6-8.9) K/mcL Lymphocytes # 0.9 (0.6-4.6) K/mcL Monocytes # 0.5 (0.0-1.3) K/mcL Eosinophils # 0.1 (0.0-0.6) K/mcL Basophils # 0.0 (0.0-0.2) K/mcL Sodium 138 (136-145) mEq/L Potassium 4.2 (3.5-5.1) mEq/L Chloride 104 (98-107) mEq/L Carbon Dioxide 27 (23-29) mEq/L BUN 24 H (8-23) mg/dL Creatinine 1.12 (0.70-1.30) mg/dL Est GFR ( Amer) > 60 (> 60) Est GFR (Non-Af Amer) > 60 (> 60) BUN/Creatinine Ratio 21 (6-26) Glucose 77 (70-105) mg/dL Calculated Osmolality 289 (280-300) Lactic Acid 1.4 (0.5-2.2) mmol/L Calcium 9.0 (8.6-10.3) mg/dL Total Bilirubin 0.7 (0.3-1.0) mg/dL Direct Bilirubin 0.2 (0.0-0.2) mg/dL Indirect Bilirubin 0.5 (0.0-1.2) mg/dL AST 17 (13-39) Units/L ALT 18 (7-52) Units/L Alkaline Phosphatase 115 H (34-104) Units/L Troponin I < 0.03 (< 0.04) ng/mL B-Natriuretic Peptide (Less than 100) pg/mL Serum Total Protein 6.4 (6.4-8.9) g/dL Albumin 3.7 (3.5-5.7) g/dL Globulin 2.7 (2.4-3.5) g/dL Albumin/Globulin Ratio 1.4 (1.1-2.2) Ur Specimen Adequacy Urine Color (Yellow) Urine Clarity (Clear) Urine pH (5.0-8.0) pH Units Ur Specific [place] (1.010-1.025) Urine Protein (Neg-Trace) mg/dL Urine Glucose (UA) (Normal) mg/dL Urine Ketones (Negative) mg/dL Urine Blood (Negative) Urine Nitrite (Negative) Urine Bilirubin (Negative) Urine Urobilinogen (Normal) mg/dL Ur Leukocyte Esterase (Negative) Urine Microscopic RBC (0-3) per hpf Urine Microscopic WBC (0-3) per hpf Ur Squamous Epith Cells (None-Few) per lpf Urine Bacteria (None-Few) per hpf Hyaline Casts (None-Few) per lpf Ur Culture Indicated? (NO) 09/22/18 09/22/18 Range/Units 14:32 15:26 WBC (4.3-11.1) K/mcL RBC (4.19-5.50) M/mcL Hgb (12.9-16.9) g/dL Hct (37.5-50.1) % MCV (83.0-100.0) fL MCH (28.0-33.3) pg MCHC (31.6-35.5) g/dL RDW (11.5-14.5) % Plt Count (140-400) K/mcL MPV (9.4-12.4) fL Immature Gran % (0-4) % Seg Neutrophils % % Lymphocytes % % Monocytes % % Eosinophils % % Basophils % % Neutrophils # (1.6-8.9) K/mcL Lymphocytes # (0.6-4.6) K/mcL Monocytes # (0.0-1.3) K/mcL Eosinophils # (0.0-0.6) K/mcL Basophils # (0.0-0.2) K/mcL Sodium (136-145) mEq/L Potassium (3.5-5.1) mEq/L Chloride (98-107) mEq/L Carbon Dioxide (23-29) mEq/L BUN (8-23) mg/dL Creatinine (0.70-1.30) mg/dL Est GFR ( Amer) (> 60) Est GFR (Non-Af Amer) (> 60) BUN/Creatinine Ratio (6-26) Glucose (70-105) mg/dL Calculated Osmolality (280-300) Lactic Acid (0.5-2.2) mmol/L Calcium (8.6-10.3) mg/dL Total Bilirubin (0.3-1.0) mg/dL Direct Bilirubin (0.0-0.2) mg/dL Indirect Bilirubin (0.0-1.2) mg/dL AST (13-39) Units/L ALT (7-52) Units/L Alkaline Phosphatase (34-104) Units/L Troponin I (< 0.04) ng/mL B-Natriuretic Peptide 3242 H (Less than 100) pg/mL Serum Total Protein (6.4-8.9) g/dL Albumin (3.5-5.7) g/dL Globulin (2.4-3.5) g/dL Albumin/Globulin Ratio (1.1-2.2) Ur Specimen Adequacy See below A Urine Color Dark Yellow (Yellow) Urine Clarity Cloudy A (Clear) Urine pH 6.0 (5.0-8.0) pH Units Ur Specific [place] 1.021 (1.010-1.025) Urine Protein Trace (Neg-Trace) mg/dL Urine Glucose (UA) Normal (Normal) mg/dL Urine Ketones Negative (Negative) mg/dL Urine Blood Negative (Negative) Urine Nitrite Negative (Negative) Urine Bilirubin Small H (Negative) Urine Urobilinogen Normal (Normal) mg/dL Ur Leukocyte Esterase Trace H (Negative) Urine Microscopic RBC 3-5 H (0-3) per hpf Urine Microscopic WBC 3-5 H (0-3) per hpf Ur Squamous Epith Cells Moderate H (None-Few) per lpf Urine Bacteria None Seen (None-Few) per hpf Hyaline Casts None Seen (None-Few) per lpf Ur Culture Indicated? YES A (NO) Critical Care Time Critical Care Time: No Attestation Statement - Attestation Attestation: I examined this patient and my medical decision-making was reviewed with the Resident Physician. I agree with the documented findings, disposition and treatment plan as described except to the extent set forth below. 83-year-old male presenting to the emergency room for orthopnea, dyspnea on exertion, lower extremity swelling. States over the last week or so he had stopped his Lasix as he was having problems with lower blood pressure. Since then he has had about a 12-13 pound weight gain as well as lower extremity swelling and increasing orthopnea. He has a history of congestive heart failure. We consulted with cardiology who wanted the patient to be admitted for further workup of his CHF and diuretic medication. At this time, he has no chest pain. His EKG did have some runs of PVCs. At one point on the rhythm strip he had 4 straight beats of PVCs which would be consistent with V. tach. No other complaints at this time.
[2018-09-22] MEDS ORDERED: Naloxone 0.4 MG/ML INJ IVP PRN (16:25)
--- NOTE | 2018-09-22 17:53 | Internal Med History&Physical ---
<Kaya Trinh Tiff - Last Filed: 09/22/18 18:17> Date of Encounter: 09/22/18 Time of Encounter: 17:48 Internal Medicine - H&P: HPI Chief complaint: WILIAN with weight gain Admitted From: Home Plans for Post Hospital Care: Home History of present illness: Mr. Mederos is a 83 year old male with PMH of COPD, CHF, presumed irregular rhythm with placement of pacemaker/defibrillator who was taken off Lasix two weeks ago for hypotension, presenting to [facility] with 2 weeks of increasing shortness of breath and a 12 pound weight gain over the last several days. Pt is endorsing some mild epigastric/sub-xiphoid abdominal pain, lightheadedness when he first stands, wheezing at night, and occasional incontinence of stool which he states is chronic. ROS was otherwise negative. Pt has inhalers at home, but thinks they are and has not used them in a long time. His only medications are a baby aspirin and zoloft. NKDA. Chews tobacco, quit smoking 30 years ago but used to smoke a "couple of packs a day since he was crawling in the yard". Denies illicit drugs/drinking. Retired [employer]. Past Med Surg Social Fam HX - Past Medical History Medical history: asthma, atrial fibrillation, cancer (colon cancer), CHF, COPD, hyperlipidemia Additional medical history: colon CA Psychiatric history: anxiety, depression - Past Surgical History Surgical History: cancer surgery, colectomy, herniorrhaphy, tonsilectomy, pacemaker Additional surgical history: colectomy - Social History Smoking Status: Former smoker Smokeless Tobacco Status: Yes (chewing tobacco) Alcohol use: none Drug use: none Occupational status: previously employed ([employer]) Current living situation: Home - Independent, With Family Activity Level: Independent ambulation - Family History Mother Hx Family Endocrine Disorder: Yes (diabetes) Father Hx Family Cardiac Disorders: Yes Internal Medicine - H&P: Meds Aspirin [Lo-Dose Aspirin EC] 81 mg PO DAILY 08/25/16 [History] Sertraline [Zoloft] 100 mg PO DAILY 08/25/16 [History] Allergy/AdvReac Type Severity Reaction Status Date / Time No Known Allergies Allergy Verified 01/27/18 13:13 All Systems PM: A 10-system review of systems was performed and is negative for pertinent findings except as documented above in the HPI. - Constitutional Constitutional: fatigue, weight gain, no chills, no fever(s) - EENT Ears: no ear pain Nose, mouth and throat: nasal discharge (clear rhinorrhea), no facial pain, no sinus pain, no sinus pressure, no sore throat - Cardiovascular Cardiovascular ROS IM: no chest pain - Respiratory Respiratory: dyspnea, wheezing (at night), no cough - Gastrointestinal Gastrointestinal: abdominal pain (epigastric/sub-xiphoid, comes and goes, mild), diarrhea (chronic s/p partial colectomy) - Genitourinary Genitourinary ROS male: no difficulty urinating, no dysuria - Neurological Neurological ROS: numbness (occasionally numb legs when standing from seated position) - Constitutional Vitals: Temp Pulse Resp BP Pulse Ox 97.5 F L 82 16 96/71 100 09/22/18 14:07 09/22/18 16:41 09/22/18 16:41 09/22/18 16:41 09/22/18 16:41 General appearance: Present: cachectic Exam: Gen: Poorly nourished, thin, cachetic male, comfortably laying in bed, in no acute distress HENT: EOMI, PRADEEP, moist mucous membranes, edentulous, nontraumatic, normocephalic Cardio: regular rate and rhythm, S3 gallop present Chest: Not tender to palpation, pacemaker present in left anterior chest Pulm: CTAB A/P No wheezes/rales/ronchi Abd: Not distended, not TTP in any quadrant, normoactive bs x 4, not rigid, no g uarding or rebound tenderness. Vertical scar present left and lateral to umbilicus Extremities: 1+ pitting edema in emma LE up to ankle, hairless LE, full ROM Skin: Warm, dry, intact Neuro: A&O x 3, mentating well, easily engaged in conversation Internal Med - H&P Results - Labs CBC & Chem 7: 09/22/18 14:32 09/22/18 14:32 Labs: Short CBC 09/22/18 Range/Units 14:32 WBC 4.5 (4.3-11.1) K/mcL Hgb 10.7 L (12.9-16.9) g/dL Hct 33.7 L (37.5-50.1) % Plt Count 135 L (140-400) K/mcL Neutrophils # 3.0 (1.6-8.9) K/mcL BMP 09/22/18 14:32 Sodium 138 Potassium 4.2 Chloride 104 Carbon Dioxide 27 BUN 24 H Creatinine 1.12 Glucose 77 Calcium 9.0 Cardiac Enzymes 09/22/18 Range/Units 14:32 Troponin I < 0.03 (< 0.04) ng/mL Liver Function 09/22/18 Range/Units 14:32 Total Bilirubin 0.7 (0.3-1.0) mg/dL Direct Bilirubin 0.2 (0.0-0.2) mg/dL AST 17 (13-39) Units/L ALT 18 (7-52) Units/L Alkaline Phosphatase 115 H (34-104) Units/L Albumin 3.7 (3.5-5.7) g/dL Urine 09/22/18 Range/Units 15:26 Urine Color Dark Yellow (Yellow) Urine Clarity Cloudy A (Clear) Urine pH 6.0 (5.0-8.0) pH Units Ur Specific [place] 1.021 (1.010-1.025) Urine Protein Trace (Neg-Trace) mg/dL Urine Glucose (UA) Normal (Normal) mg/dL - Impressions ITS Impressions Chest X-Ray 09/22/18 13:20 IMPRESSION: 1. Stable mild enlargement of the cardiac silhouette. 2. Small bilateral pleural effusions. 3. Interval improvement of previously seen left base airspace opacity. 4. Emphysema. D/ / Rodo Del Toro MD / Rodo Del Toro MD Interpreting Provider: Rodo Del Toro MD - Assessment and plan (1) Hypotension Current Visit: Yes Status: Acute Assessment and plan: - Blood pressure has been between 85/64 - 97/62 while in the ED - Cannot give fluids given bilateral pleural effusions seen on CXR - will give 50g 25% albumin to raise intravascular volume - continue to monitor Qualifiers: Qualified Code(s): I95.9 - Hypotension, unspecified (2) Bilateral pleural effusion Current Visit: Yes Status: Acute Assessment and plan: 2V CXR shows small bilateral pleural effusions - No wheezing appreciated on exam - pt states he subjectively feels short of breath on exertion, but able to converse comfortably - will administer albumin to raise intravascular volume, fluid restrict <1.5L, monitor with CXR on Wed AM (3) COPD (chronic obstructive pulmonary disease) Current Visit: No Status: Chronic Assessment and plan: - Pt has inhalers at home, but they are and he does not remember the last time he used them - No wheezing appreciated on exam - will add PRN nebulizers in the event of wheezing Qualifiers: COPD type: unspecified COPD Qualified Code(s): J44.9 - Chronic obstructive pulmonary disease, unspecified (4) Dyspnea Current Visit: No Status: Acute Assessment and plan: - 2 weeks of worsening SOB - CXR shows emma pleural effusions - emma LE edema 1+ up to level of ankles - Albumin, fluid restriction, nebulizers for wheezing - Cardiology consult Qualifiers: Dyspnea type: unspecified Qualified Code(s): R06.00 - Dyspnea, unspecified (5) Systolic heart failure Current Visit: Yes Status: Chronic Assessment and plan: Echo from 02/19/18 shows LVEF 20% with severe global LV systolic dysfunction with indeterminate diastolic function, bi-atrial enlargement, mod mitral regurg, mild-mod tricuspid and pulmonic regurg, borderline pulmonary HTN, with dilated IVC - Cardiology consulted Qualifiers: Qualified Code(s): I50.20 - Unspecified systolic (congestive) heart failure - Time Spent With Patient Total time spent is greater than 50% in coordination of care (as documented) at patient's floor/unit and/or counseling patient: less than 15 minutes <Dipak Humphrey - Last Filed: 09/22/18 19:57> Date of Encounter: 09/22/18 Internal Medicine - H&P: HPI History of present illness: Mr. Mederos is a 83 year old male All Systems PM: A 10-system review of systems was performed and is negative for pertinent findings except as documented above in the HPI. - Constitutional Vitals: Temp Pulse Resp BP Pulse Ox 97.5 F L 89 16 102/69 100 09/22/18 14:07 09/22/18 18:14 09/22/18 18:14 09/22/18 18:14 09/22/18 18:14 Internal Med - H&P Results - Labs CBC & Chem 7: 09/22/18 14:32 09/22/18 14:32 Labs: Short CBC 09/22/18 Range/Units 14:32 WBC 4.5 (4.3-11.1) K/mcL Hgb 10.7 L (12.9-16.9) g/dL Hct 33.7 L (37.5-50.1) % Plt Count 135 L (140-400) K/mcL Neutrophils # 3.0 (1.6-8.9) K/mcL BMP 09/22/18 14:32 Sodium 138 Potassium 4.2 Chloride 104 Carbon Dioxide 27 BUN 24 H Creatinine 1.12 Glucose 77 Calcium 9.0 Cardiac Enzymes 09/22/18 Range/Units 14:32 Troponin I < 0.03 (< 0.04) ng/mL Liver Function 09/22/18 Range/Units 14:32 Total Bilirubin 0.7 (0.3-1.0) mg/dL Direct Bilirubin 0.2 (0.0-0.2) mg/dL AST 17 (13-39) Units/L ALT 18 (7-52) Units/L Alkaline Phosphatase 115 H (34-104) Units/L Albumin 3.7 (3.5-5.7) g/dL Urine 09/22/18 Range/Units 15:26 Urine Color Dark Yellow (Yellow) Urine Clarity Cloudy A (Clear) Urine pH 6.0 (5.0-8.0) pH Units Ur Specific [place] 1.021 (1.010-1.025) Urine Protein Trace (Neg-Trace) mg/dL Urine Glucose (UA) Normal (Normal) mg/dL - Impressions ITS Impressions Chest X-Ray 09/22/18 13:20 IMPRESSION: 1. Stable mild enlargement of the cardiac silhouette. 2. Small bilateral pleural effusions. 3. Interval improvement of previously seen left base airspace opacity. 4. Emphysema. D/ / Rodo Del Toro MD / Rodo Del Toro MD Interpreting Provider: Rodo Del Toro MD - Assessment and plan (1) Acute on chronic systolic (congestive) heart failure Current Visit: No Status: Acute Assessment and plan: Fluid restriction. Diuresis as able. Cardiology to see - consulted by ED. (2) Hypotension Current Visit: Yes Status: Acute Qualifiers: Hypotension type: unspecified hypotension type Qualified Code(s): I95.9 - Hypotension, unspecified (3) Nonischemic cardiomyopathy Current Visit: No Status: Chronic (4) COPD (chronic obstructive pulmonary disease) Current Visit: No Status: Chronic Qualifiers: COPD type: unspecified COPD Qualified Code(s): J44.9 - Chronic obstructive pulmonary disease, unspecified (5) Bilateral inguinal hernia Current Visit: No Status: Chronic Qualifiers: Obstruction and gangrene presence: without obstruction or gangrene Recurrence: not specified as recurrent Qualified Code(s): K40.20 - Bilateral inguinal hernia, without obstruction or gangrene, not specified as recurrent (6) Atrial fibrillation Current Visit: Yes Status: Chronic Qualifiers: Atrial fibrillation type: chronic Qualified Code(s): I48.2 - Chronic atrial fibrillation - Time Spent With Patient Total time spent is greater than 50% in coordination of care (as documented) at patient's floor/unit and/or counseling patient: 25 - 35 minutes - Attending Attestation I examined this patient and my medical decision-making was reviewed with the Resident Physician on 09/22/18. I agree with the documented findings, disposition and treatment plan as described except to the extent set forth below. Mr Mederos is 83 y/o male with hx of chronic systolic CHF presented to ED with weight gain and progressive dyspnea. He has noticed 12 lb gain. No fever or chills. No CP or cough. Dyspnea progressive over last few days. No GI issues. Exam Alert Comfortable at rest off oxygen. Mucus membranes dry Heart irreg - S3 heard. No murmur Lungs with bibasilar crackles Abd soft and nontender now Trace lower extremity edema Moves all extremities - no focal deficit appreciated I/P 1. Acute exac chronic systolic CHF - diuresis as able (BP low). Fluid restriction. 2. Pacemaker 3. BP has been low at this time. Further diagnoses and plan as above. Cardiology consulted by ED.
[2018-09-22] MEDS ORDERED: Albuterol 2.5 MG/3 ML NEBULIZER IH PRN (18:12)
[2018-09-22] MEDS ORDERED: Acetaminophen 325 MG TABLET PO PRN (19:47)
[2018-09-22] MEDS: Albumin 25% 25gram/100mL 25 GM/100 ML IV.SOLN IVC SCH ×2 (20:15→22:05)
[2018-09-23 06:07] LABS: Basophils % 0.8 %; Eosinophils # 0.2 K/mcL (0.0-0.6); Hematocrit 32.2 % (37.5-50.1); Immature Granulocytes % 0.4 % (0-4); Lymphocytes # 1.3 K/mcL (0.6-4.6); Lymphocytes % 25.8 %; Mean Corpuscular HGB Conc 31.1 g/dL (31.6-35.5); Mean Corpuscular Hemoglobin 29.8 pg (28.0-33.3); Mean Corpuscular Volume 95.8 fL (83.0-100.0); Mean Platelet Volume 10.3 fL (9.4-12.4); Monocytes # 0.6 K/mcL (0.0-1.3); Monocytes % 11.6 %; Neutrophils # 2.9 K/mcL (1.6-8.9); Platelet Count 119 K/mcL (140-400); Red Blood Count 3.36 M/mcL (4.19-5.50); Red Cell Distribution Width 17.2 % (11.5-14.5); Segmented Neutrophils % 58.4 %
[2018-09-23 06:33] LABS: BUN/Creatinine Ratio 20 (6-26); Blood Urea Nitrogen 23 mg/dL (8-23); Calcium 9.3 mg/dL (8.6-10.3); Carbon Dioxide 26 mEq/L (23-29); Chloride 105 mEq/L (98-107); Glucose 97 mg/dL (70-105); Osmolality,Calculated 290 (280-300); Potassium 4.4 mEq/L (3.5-5.1); Sodium 138 mEq/L (136-145); eGFR For Non-African Americans > 60 (> 60)
[2018-09-23] MEDS: Aspirin Enteric Coated 81 MG Tablet PO SCH (08:50)
[2018-09-23 08:59] LABS: Albumin 4.1 g/dL (3.5-5.7)
--- NOTE | 2018-09-23 10:11 | Cardiology Consult Note ---
<Jimmy Morin - Last Filed: 09/23/18 13:12> Date of Encounter: 09/23/18 Time of Encounter: 10:11 Assessment and Plan (1) Congestive heart failure Current Visit: Yes Status: Acute 83 YO male presenting SOB + weight gain and EF of 20% on 02/2018. Patient's lasixs were stopped due to hyptension 2 weeks [address] PCP Dr. Keenan. Patient still has rales in lower lung bases. - Rec restart 20mg lasix diuresis w/ frequent BP checks. - Rec fluid restriction, frequent weight checks. - Rec referral to CHF specialists in [place] with possible LVAD Qualifiers: Heart failure type: systolic Heart failure chronicity: acute on chronic Qualified Code(s): I50.23 - Acute on chronic systolic (congestive) heart failure (2) CHF exacerbation Current Visit: No Status: Acute Diuresis with lasix 20 Qualifiers: Heart failure type: systolic Qualified Code(s): I50.23 - Acute on chronic systolic (congestive) heart failure (3) Atrial fibrillation Current Visit: No Status: Chronic RRR, no intervention needed at this time. Qualifiers: Atrial fibrillation type: chronic Qualified Code(s): I48.2 - Chronic atrial fibrillation Discussion w patient/family: The assessment and plan as outlined above was discussed with the patient and/or family members who expressed understanding and agreement. All questions were answered. Thank you for involving us in the care of your patient. Please call wi th any questions. History of Present Illness Consult reason: CHF, COB with weight gain History of present illness: Mr. Mederos is a 83 year old male whom cardiology has been consulted because of SOB with weight gain. He has a history of CHF, afib with pacemaker/ICD, COPD, hyperlipidemia, and afib. Patient was recently taken off lasix by his PCP and since then has been expereincing increasing SOB and 12 lb weight gain. He states he is having epigastric chest pain that occurs at night, is relieved by standing, does not radiate to shoulder or back. States that he has not had chest palpitations lately. Last echo was on 02/2018 showing EF of 20% with severe global LV dysfunction. Pacemaker/ICD implantation also in 02/2018. Past Med Surg Social Fam HX - Past Medical History Medical history: asthma, atrial fibrillation, cancer, CHF, COPD, hyperlipidemia Additional medical history: colon CA Psychiatric history: anxiety, depression - Past Surgical History Surgical History: cancer surgery, colectomy, herniorrhaphy, tonsilectomy, pacemaker Additional surgical history: colectomy - Social History Smoking Status: Former smoker Smokeless Tobacco Status: Yes (chewing tobacco) Alcohol use: none Drug use: none - Family History Mother Hx Family Endocrine Disorder: Yes (diabetes) Father History Unknown: Yes Hx Family Cardiac Disorders: Yes Medications and Allergies Aspirin [Lo-Dose Aspirin EC] 81 mg PO DAILY 08/25/16 [History] Sertraline [Zoloft] 100 mg PO DAILY 08/25/16 [History] Allergy/AdvReac Type Severity Reaction Status Date / Time No Known Allergies Allergy Verified 01/27/18 13:13 All Systems Review: The remainder of the systems were reviewed and are negative - Constitutional Constitutional: fatigue, malaise, weight gain, no anorexia, no headache(s) - Cardiovascular Cardiovascular: as per HPI - Gastrointestinal Gastrointestinal: other (Epigastric pain, NT to palpation) Physical Examination Vital Signs, Last 4 Hours Pulse BP BP BP BP Pulse Ox 09/23/18 09:00 102/62 98/61 102/58 09/23/18 08:48 95 09/23/18 06:35 89 98/67 95 General: Conversant, No Apparent Distress HEENT: Atraumatic, Normocephaly Neck: No JVD Cardiac: Reg Rate and Rhythm, Normal S1 and S2 Lungs: Other (scattered rales, janay in lower bases) Neuro: Alert and responsive, No focal deficits noted Abdomen: Soft, Non-Tender Skin: No rashes noted on visualized skin Musculoskeletal: No Chest Wall Tenderness Extremities: No Clubbing, No Cyanosis, Normal Pulses, Other (Mild edema, appears to have resolved according to patient) Results 09/23/18 05:37 09/23/18 05:37 Lab Results 09/22/18 09/22/18 09/22/18 14:32 14:32 14:32 WBC 4.5 Hgb 10.7 L Hct 33.7 L Plt Count 135 L Sodium 138 Potassium 4.2 Chloride 104 Carbon Dioxide 27 BUN 24 H Creatinine 1.12 Glucose 77 Calcium 9.0 Total Bilirubin 0.7 AST 17 ALT 18 Alkaline Phosphatase 115 H Troponin I < 0.03 B-Natriuretic Peptide 3242 H 09/23/18 09/23/18 05:37 05:37 WBC 5.0 Hgb 10.0 L Hct 32.2 L Plt Count 119 L Sodium 138 Potassium 4.4 Chloride 105 Carbon Dioxide 26 BUN 23 Creatinine 1.13 Glucose 97 Calcium 9.3 Total Bilirubin AST ALT Alkaline Phosphatase Troponin I B-Natriuretic Peptide - Imaging and Cardiology Chest Xray: report reviewed (mild heart enarlgmenet, pmonary vac congestion, peural effusions) Consult Discharge Plan - Plan Referrals: Kirt Trevino DO [Primary Care Provider] - <Alonso Simon - Last Filed: 09/23/18 14:28> Date of Encounter: 09/23/18 - Attending Attestation I have personally performed a face to face evaluation on this patient. I have reviewed and agree with the documented findings and care plan as documented by the CARE COORDINATION MANAGER. History and Exam by me shows: 81-year-old gentleman with history of nonischemic cardiomyopathy ([facility] 04/17/2017) presented with acute systolic CHF exacerbation. He had been taking off his diuretics 2 weeks ago by his PCP on account of hypotension. Since then he has noticed increased shortness of breath and fluid overload AAOX3 in NAD at the bedside Hemodynamically stable Cardiopulmonary exam revealed S1 and S2 minimal bibasilar areas Echo 02/19/18 showed EF of 20% Impression/plan: Acute systolic CHF exacerbation NYHA class IV ACC/AHA stage D. Clinically warm and wet. Continue Lasix 20 mg daily. He will likely need advanced heart failure management because of inability to tolerate his diuretics and other guideline directed medical therapy Alonso Hernandez MD Assessment and Plan Discussion w patient/family: The assessment and plan as outlined above was discussed with the patient and/or family members who expressed understanding and agreement. All questions were answered. Thank you for involving us in the care of your patient. Please call with any questions. History of Present Illness History of present illness: Mr. Mederos is a 83 year old male All Systems Review: The remainder of the systems were reviewed and are negative Physical Examination Vital Signs, Last 4 Hours Pulse BP Pulse Ox 09/23/18 10:56 86 85/56 95 Results 09/23/18 05:37 09/23/18 05:37 Lab Results 11/12/18 11/12/18 11/12/18 14:32 14:32 14:32 WBC 4.5 Hgb 10.7 L Hct 33.7 L Plt Count 135 L Sodium 138 Potassium 4.2 Chloride 104 Carbon Dioxide 27 BUN 24 H Creatinine 1.12 Glucose 77 Calcium 9.0 Total Bilirubin 0.7 AST 17 ALT 18 Alkaline Phosphatase 115 H Troponin I < 0.03 B-Natriuretic Peptide 3242 H 09/23/18 09/23/18 05:37 05:37 WBC 5.0 Hgb 10.0 L Hct 32.2 L Plt Count 119 L Sodium 138 Potassium 4.4 Chloride 105 Carbon Dioxide 26 BUN 23 Creatinine 1.13 Glucose 97 Calcium 9.3 Total Bilirubin AST ALT Alkaline Phosphatase Troponin I B-Natriuretic Peptide
--- NOTE | 2018-09-23 10:51 | Internal Med Progress Note ---
<Kaya Trinh - Last Filed: 09/23/18 13:48> Hospitalist Progress Note - Encounter Date of Encounter: 09/23/18 Time of Encounter: 10:51 - Subjective Interval History: 83M with PMH COPD, CHF, colon ca with partial colectomy, and recent change in medication presented with increasing SOB and weight gain. Pt had no acute events overnight according to RN, but pt complaining of inability to sleep. Pt reports that he has tried melatonin in the past. Can add to his list. Pt states his breathing feels a little better this morning. Plan for cardiology consult today, will order Limited echocardiogram as pt just had full in February 2018, as well as Abd US to check aorta, given his pain pattern in epigastric/sub-xiphoid region. - Exam Vitals: Temp Pulse Resp BP Pulse Ox 97.4 F L 89 17 102/62 95 09/23/18 05:18 09/23/18 06:35 09/23/18 05:18 09/23/18 09:00 09/23/18 08:48 Exam: Gen: Poorly nourished, thin, cachetic male, comfortably laying in bed, in no acute distress HENT: EOMI, PRADEEP, moist mucous membranes, edentulous, nontraumatic, normocephalic Cardio: regular rate and rhythm, no S3 auscultated today Chest: Not tender to palpation, pacemaker present in left anterior chest Pulm: CTAB A/P No wheezes/rales/ronchi Abd: Not distended, not TTP in any quadrant, normoactive bs x 4, not rigid, no guarding or rebound tenderness. Vertical scar present left and lateral to umbilicus Extremities: No swelling noted today, hairless LE, full ROM Skin: Warm, dry, intact Neuro: A&O x 3, mentating well, easily engaged in conversation - Assessment and Plan (1) Hypotension Current Visit: Yes Status: Acute Assessment and Plan: Pt's BP has been consistently low - 80s/50s up to 102/69 - Albumin administered yesterday increased Albumin level from 3.8 to 4.1 - Will continue to monitor and administer fluids as necessary (2) Bilateral pleural effusion Current Visit: Yes Status: Acute Assessment and Plan: Pt has emma crackles in his bases, as well as CXR evidence of small emma pleural effusions - Pt states that his breathing is improved today, but still has crackles in bases - Cardiology consult pending, can try Bipap in the meantime for mechanical diuresis from lungs (3) COPD (chronic obstructive pulmonary disease) Current Visit: No Status: Chronic Assessment and Plan: Pt states that he has inhalers at home but believes they are - albuteral IH PRN as needed for wheezing - will make note for outpatient provider to optimize COPD therapy (4) Dyspnea Current Visit: No Status: Acute Assessment and Plan: - Pt was complaining of 2 weeks of increasing SOB at admission - pt also complaning of night time wheezing, added albuterol PRN for wheezing (5) Systolic heart failure Current Visit: Yes Status: Chronic Assessment and Plan: Pt was seen by cardiology today that recommends restarting lasix 20mg with frequent BP checks, fluid restriction, frequent weight checks, and referral to CHF specialist in [place] with possible LVAD. DVT Prophylaxis: SCDs - Time Spent with Patient Total time spent is greater than 50% in coordination of care (as documented) at patient's floor/unit and/or counseling patient: less than 15 minutes Plan of Care Discussed with: patient Internal Medicine: Result - Labs CBC & Chem 7: 09/23/18 05:37 09/23/18 05:37 Labs: Short CBC 09/22/18 09/23/18 Range/Units 14:32 05:37 WBC 4.5 5.0 (4.3-11.1) K/mcL Hgb 10.7 L 10.0 L (12.9-16.9) g/dL Hct 33.7 L 32.2 L (37.5-50.1) % Plt Count 135 L 119 L (140-400) K/mcL Neutrophils # 3.0 2.9 (1.6-8.9) K/mcL BMP 09/22/18 09/23/18 14:32 05:37 Sodium 138 138 Potassium 4.2 4.4 Chloride 104 105 Carbon Dioxide 27 26 BUN 24 H 23 Creatinine 1.12 1.13 Glucose 77 97 Calcium 9.0 9.3 Cardiac Enzymes 09/22/18 Range/Units 14:32 Troponin I < 0.03 (< 0.04) ng/mL Liver Function 09/22/18 09/23/18 Range/Units 14:32 05:37 Total Bilirubin 0.7 (0.3-1.0) mg/dL Direct Bilirubin 0.2 (0.0-0.2) mg/dL AST 17 (13-39) Units/L ALT 18 (7-52) Units/L Alkaline Phosphatase 115 H (34-104) Units/L Albumin 3.7 4.1 (3.5-5.7) g/dL Urine 09/22/18 Range/Units 15:26 Urine Color Dark Yellow (Yellow) Urine Clarity Cloudy A (Clear) Urine pH 6.0 (5.0-8.0) pH Units Ur Specific [place] 1.021 (1.010-1.025) Urine Protein Trace (Neg-Trace) mg/dL Urine Glucose (UA) Normal (Normal) mg/dL - Impressions Impressions Chest X-Ray 09/22/18 13:20 IMPRESSION: 1. Stable mild enlargement of the cardiac silhouette. 2. Small bilateral pleural effusions. 3. Interval improvement of previously seen left base airspace opacity. 4. Emphysema. D/ / Rodo Del Toro MD / Rodo Del Toro MD Interpreting Provider: Rodo Del Toro MD Consult Discharge Plan - Plan Referrals: Kirt Trevino, DO [Primary Care Provider] - <Evonne Castellanos - Last Filed: 09/23/18 15:02> Hospitalist Progress Note - Encounter Date of Encounter: 09/23/18 - Exam Vitals: Temp Pulse Resp BP Pulse Ox 97.4 F L 86 17 85/56 95 09/23/18 05:18 09/23/18 10:56 09/23/18 05:18 09/23/18 10:56 09/23/18 10:56 - Assessment and Plan (1) Acute on chronic systolic (congestive) heart failure Current Visit: No Status: Acute (2) Bilateral inguinal hernia Current Visit: No Status: Chronic (3) COPD (chronic obstructive pulmonary disease) Current Visit: No Status: Chronic (4) Nonischemic cardiomyopathy Current Visit: No Status: Chronic (5) Hypotension Current Visit: Yes Status: Acute (6) Atrial fibrillation Current Visit: No Status: Chronic - Time Spent with Patient Total time spent is greater than 50% in coordination of care (as documented) at patient's floor/unit and/or counseling patient: Internal Medicine: Result - Labs CBC & Chem 7: 09/23/18 05:37 09/23/18 05:37 Labs: Short CBC 09/22/18 09/23/18 Range/Units 14:32 05:37 WBC 4.5 5.0 (4.3-11.1) K/mcL Hgb 10.7 L 10.0 L (12.9-16.9) g/dL Hct 33.7 L 32.2 L (37.5-50.1) % Plt Count 135 L 119 L (140-400) K/mcL Neutrophils # 3.0 2.9 (1.6-8.9) K/mcL BMP 09/22/18 09/23/18 14:32 05:37 Sodium 138 138 Potassium 4.2 4.4 Chloride 104 105 Carbon Dioxide 27 26 BUN 24 H 23 Creatinine 1.12 1.13 Glucose 77 97 Calcium 9.0 9.3 Cardiac Enzymes 09/22/18 Range/Units 14:32 Troponin I < 0.03 (< 0.04) ng/mL Liver Function 09/22/18 09/23/18 Range/Units 14:32 05:37 Total Bilirubin 0.7 (0.3-1.0) mg/dL Direct Bilirubin 0.2 (0.0-0.2) mg/dL AST 17 (13-39) Units/L ALT 18 (7-52) Units/L Alkaline Phosphatase 115 H (34-104) Units/L Albumin 3.7 4.1 (3.5-5.7) g/dL Urine 09/22/18 Range/Units 15:26 Urine Color Dark Yellow (Yellow) Urine Clarity Cloudy A (Clear) Urine pH 6.0 (5.0-8.0) pH Units Ur Specific [place] 1.021 (1.010-1.025) Urine Protein Trace (Neg-Trace) mg/dL Urine Glucose (UA) Normal (Normal) mg/dL - Impressions Impressions Chest X-Ray 09/22/18 13:20 IMPRESSION: 1. Stable mild enlargement of the cardiac silhouette. 2. Small bilateral pleural effusions. 3. Interval improvement of previously seen left base airspace opacity. 4. Emphysema. D/ / Rodo Del Toro MD / Rodo Del Toro MD Interpreting Provider: Rodo Del Toro MD - Attending Attestation I examined this patient and my medical decision-making was reviewed with the Resident Physician Dr Trinh. I agree with the documented findings, disposition and treatment plan as described except to the extent set forth below/addl details above Mr Mederos is 83 y/o male with hx of chronic systolic CHF presented to ED with weight gain and progressive dyspnea since lasix being stopped in recent weeks. He has noted hypotension. awake, family at bedside. no cp, pressure, palpitations. + sob with exertion, + orthopnea. To clarify 12 lb weight gain is when comparing his home scale to ed scale. + presyncope when getting out of bed. At home he is very active, no recent immobilization. gen- alert, awake,appears stated age eyes- pupils equal round, no conjunctival pallor cv- reg rate and rhythm, normal s1,s2, no murmurs appreciated, no le edema, no j vd lungs- ctabl, no wheezing, rhonchi , + bibasilar crackles, normal resp effort abd- soft, non tender, non distended, + bs neuro- AAOx3, CN grossly intact, no focal deficits Acute exac chronic systolic CHF as evidenced by bl pleural effusions- cards is following, rec for gentle diuresis and close bp monitoring, ef 20% in february 2018 -will require referral to [facility] cards on dc to discuss if lvad candidate -check echo -he is not on any home meds due to hypotension outpt Chronic Afib, currently NSR- cont home asa Hypotension - s/p albumin with good effect, cont to monitor, orthostat neg, no chest pain, but epigastric pain, given tobacco use hx check US abdomen to rule out AAA -not a sepsis picture at this time, not likely related to anemia as stable thus far, cont to monitor Chronic Anemia, hgb 10s- no active bleeding, cont to monitor eigastric pain in setting of chronic anemia, asa and tobacco use- check fobt, abd US as above, ppip thrombocytopenia, plt 119- no active bleeding, cont to monitor Further diagnoses and plan as above. vte ppx scds ___ <Kaya Trinh L - Last Filed: 09/23/18 13:48> (1) Hypotension Qualifiers: Hypotension type: unspecified hypotension type Qualified Code(s): I95.9 - Hypotension, unspecified (3) COPD (chronic obstructive pulmonary disease) Qualifiers: COPD type: unspecified COPD Qualified Code(s): J44.9 - Chronic obstructive pulmonary disease, unspecified (4) Dyspnea Qualifiers: Dyspnea type: unspecified Qualified Code(s): R06.00 - Dyspnea, unspecified (5) Systolic heart failure Qualifiers: Qualified Code(s): I50.20 - Unspecified systolic (congestive) heart failure <Evonne Castellanos - Last Filed: 09/23/18 15:02> (2) Bilateral inguinal hernia Qualifiers: Obstruction and gangrene presence: without obstruction or gangrene Recurrence: not specified as recurrent Qualified Code(s): K40.20 - Bilateral inguinal hernia, without obstruction or gangrene, not specified as recurrent (3) COPD (chronic obstructive pulmonary disease) Qualifiers: COPD type: unspecified COPD Qualified Code(s): J44.9 - Chronic obstructive pulmonary disease, unspecified (5) Hypotension Qualifiers: Hypotension type: unspecified hypotension type Qualified Code(s): I95.9 - Hypotension, unspecified (6) Atrial fibrillation Qualifiers: Atrial fibrillation type: chronic Qualified Code(s): I48.2 - Chronic atrial fibrillation
[2018-09-23] MEDS: Furosemide 20 MG TABLET PO SCH (15:34)
[2018-09-23] MEDS ORDERED: Perflutren Lipid Microsphere 1.3 ML in 0.9 % Sodium Chloride 8.7 ML IVP ONE (19:54)
[2018-09-23] MEDS ORDERED: Melatonin 3 MG TABLET PO SCH (22:00)
--- NOTE | 2018-09-23 22:39 | Electrocardiograph Report ---
[address] [place] [address] Test Date: 2018-09-22 Pat Name: Cirilo Mederos Department: EXAM1 Room: 2NE28 Gender: M Instrument Repairer: : [id number] Requested By: Alfredo Shirley Order Number: [id number] Reading MD: Tosha Montano Measurements Intervals [place] Rate: 82 P: -62 [place]: 259 QRS: -78 QRSD: 102 T: 111 QT: 417 QTc: 487 Interpretive Statements Sinus rhythm with PACs and PVCs, 1st degree AVB Left anterior fascicular block LVH with secondary repolarization abnormality Probable inferior infarct, age indeterminate Probable anteroseptal infarct, age indeterminate Electronically Signed On 09-23-2018 22:38:04 EST by Tosha Montano
[2018-09-24 05:16] LABS: Basophils % 0.9 %; Eosinophils # 0.2 K/mcL (0.0-0.6); Eosinophils % 4.4 %; Hematocrit 31.9 % (37.5-50.1); Hemoglobin 10.1 g/dL (12.9-16.9); Immature Granulocytes % 0.2 % (0-4); Lymphocytes % 20.8 %; Mean Corpuscular HGB Conc 31.7 g/dL (31.6-35.5); Mean Corpuscular Hemoglobin 30.1 pg (28.0-33.3); Mean Corpuscular Volume 94.9 fL (83.0-100.0); Monocytes # 0.5 K/mcL (0.0-1.3); Monocytes % 10.5 %; Neutrophils # 2.9 K/mcL (1.6-8.9); Platelet Count 126 K/mcL (140-400); Red Blood Count 3.36 M/mcL (4.19-5.50); Segmented Neutrophils % 63.2 %
[2018-09-24 05:35] LABS: BUN/Creatinine Ratio 30 (6-26); Blood Urea Nitrogen 29 mg/dL (8-23); Calcium 8.9 mg/dL (8.6-10.3); Carbon Dioxide 26 mEq/L (23-29); Chloride 104 mEq/L (98-107); Glucose 102 mg/dL (70-105); Osmolality,Calculated 294 (280-300); Potassium 4.1 mEq/L (3.5-5.1); Sodium 139 mEq/L (136-145); eGFR For Non-African Americans > 60 (> 60)
[2018-09-24] MEDS: Furosemide 20 MG TABLET PO SCH (08:58)
[2018-09-24] MEDS: Aspirin Enteric Coated 81 MG Tablet PO SCH (09:03)
--- NOTE | 2018-09-24 09:17 | Internal Med Progress Note ---
<KarenKaya tsang - Last Filed: 09/24/18 13:50> Hospitalist Progress Note - Encounter Date of Encounter: 09/24/18 Time of Encounter: 09:17 - Subjective Interval History: 83M with PMH COPD, CHF, colon ca with partial colectomy, and recent change in medication presented with increasing SOB and weight gain. Pt had no acute events overnight according to RN, but pt complaining of inability to sleep. Pt reports that he has tried melatonin in the past. Can add to his list. Pt states his breathing feels a little better this morning. Plan for cardiology consult today, will order Limited echocardiogram as pt just had full in February 2018, as well as Abd US to check aorta, given his pain pattern in epigastric/sub-xiphoid region. - Exam Vitals: Temp Pulse Resp BP Pulse Ox 97.4 F L 76 17 85/58 96 09/24/18 05:01 09/24/18 06:47 09/24/18 05:01 09/24/18 06:47 09/24/18 06:47 Exam: Gen: Poorly nourished, thin, cachetic male, comfortably laying in bed, in no acute distress HENT: EOMI, PRADEEP, moist mucous membranes, edentulous, nontraumatic, normocephalic Cardio: irregular rate and rhythm, no S3 auscultated today Chest: Not tender to palpation, pacemaker present in left anterior chest Pulm: Wheezes in emma bases, clear in other lung stephens Abd: Not distended, not TTP in any quadrant, normoactive bs x 4, not rigid, no guarding or rebound tenderness. Vertical scar present left and lateral to umbilicus Extremities: No swelling noted today, hairless LE, full ROM Skin: Warm, dry, intact Neuro: A&O x 3, mentating well, easily engaged in conversation - Assessment and Plan (1) Hypotension Current Visit: Yes Status: Acute Assessment and Plan: BP this AM 85/58 after Lasix yesterday BUN:Creatinine ratio 30 Suspect prerenal azotemia Will give 250mL bolus IVF (2) Bilateral pleural effusion Current Visit: Yes Status: Acute Assessment and Plan: ED CXR showed small emma pleural effusions repeat CXR pending this AM (3) COPD (chronic obstructive pulmonary disease) Current Visit: No Status: Chronic (4) Dyspnea Current Visit: No Status: Acute (5) Systolic heart failure Current Visit: Yes Status: Chronic DVT Prophylaxis: SCDs - Time Spent with Patient Total time spent is greater than 50% in coordination of care (as documented) at patient's floor/unit and/or counseling patient: Internal Medicine: Result - Labs CBC & Chem 7: 09/24/18 04:30 09/24/18 04:30 Labs: Short CBC 09/24/18 Range/Units 04:30 WBC 4.6 (4.3-11.1) K/mcL Hgb 10.1 L (12.9-16.9) g/dL Hct 31.9 L (37.5-50.1) % Plt Count 126 L (140-400) K/mcL Neutrophils # 2.9 (1.6-8.9) K/mcL BMP 09/24/18 04:30 Sodium 139 Potassium 4.1 Chloride 104 Carbon Dioxide 26 BUN 29 H Creatinine 0.96 Glucose 102 Calcium 8.9 Consult Discharge Plan - Plan Referrals: Kirt Trevino DO [Primary Care Provider] - 09/30/18 9:45 am <Evonne Castellanos - Last Filed: 09/24/18 16:00> Hospitalist Progress Note - Encounter Date of Encounter: 09/24/18 - Exam Vitals: Temp Pulse Resp BP Pulse Ox 97.4 F L 94 17 90/65 95 09/24/18 05:01 09/24/18 15:05 09/24/18 05:01 09/24/18 15:05 09/24/18 15:05 - Assessment and Plan (1) Acute on chronic systolic (congestive) heart failure Current Visit: No Status: Acute (2) Bilateral inguinal hernia Current Visit: No Status: Chronic (3) COPD (chronic obstructive pulmonary disease) Current Visit: No Status: Chronic (4) Nonischemic cardiomyopathy Current Visit: No Status: Chronic (5) Hypotension Current Visit: Yes Status: Acute (6) Atrial fibrillation Current Visit: No Status: Chronic - Time Spent with Patient Total time spent is greater than 50% in coordination of care (as documented) at patient's floor/unit and/or counseling patient: Internal Medicine: Result - Labs CBC & Chem 7: 09/24/18 04:30 09/24/18 04:30 Labs: Short CBC 09/24/18 Range/Units 04:30 WBC 4.6 (4.3-11.1) K/mcL Hgb 10.1 L (12.9-16.9) g/dL Hct 31.9 L (37.5-50.1) % Plt Count 126 L (140-400) K/mcL Neutrophils # 2.9 (1.6-8.9) K/mcL BMP 09/24/18 04:30 Sodium 139 Potassium 4.1 Chloride 104 Carbon Dioxide 26 BUN 29 H Creatinine 0.96 Glucose 102 Calcium 8.9 - Impressions Impressions Chest X-Ray 09/24/18 06:00 IMPRESSION: Slight interval increase in size of small bilateral pleural effusions with interval worsening of left basilar airspace consolidation. D/ / 09/24/2018 10:58:41 [facility] Hebert [facility] Inter[facility]ting Provider: Usama Hebert MD Aorta Ultrasound 09/24/18 10:00 IMPRESSION: No evidence of abdominal aortic aneurysm. D/ / Rashaad Rinaldi MD / Rashaad Rinaldi MD Interpreting Provider: Rashaad Rinaldi MD Echocardiogram Limited Views 09/24/18 14:50 Impressions: LVEF 25%. Severe global left ventricular systolic dysfunction. Mildly dilated left ventricle. Moderate right ventricular hypokinesis. Mildly dilated right ventricle. Mildly dilated left atrium and right atrium. Left Ventricular Wall Motion: Rest Echo Findings The apex, apical inferior, mid inferior, basal inferior, apical anterior, mid anterior, basal anterior, apical septal, mid inferior septal, basal inferior septal, apical lateral, mid anterior lateral, basal anterior lateral, mid anterior septal, mid inferior lateral, basal anterior septal and basal inferior lateral montgomery were hypokinetic. Findings: Study Quality * Technically adequate exam. ECG Findings * Sinus rhythm, occasional A sense V pace. Left Ventricle * LVEF 25%. * Mildly dilated left ventricle. * Severe global left ventricular systolic dysfunction. * There is no LV thrombus. * Definity echo contrast was used. Right Ventricle * Mildly dilated right ventricle. * Moderate right ventricular hypokinesis. Left Atrium * Mildly dilated left atrium. Right Atrium * Mildly dilated right atrium. Device lead * A device lead was visualized in the right atrium and right ventricle. ADDENDUM: 09/24/18 [id number] Impressions: LVEF 25%. Severe global left ventricular systolic dysfunction. Mildly dilated left ventricle. Mildly dilated right ventricle with moderate right ventricular hypokinesis. Mildly dilated left atrium and right atrium. Large pleural effusion, suggest definitive workup. Ordering physician notified via [employer]. Left Ventricular Wall Motion: Rest Echo Findings The apex, apical inferior, mid inferior, basal inferior, apical anterior, mid anterior, basal anterior, apical septal, mid inferior septal, basal inferior septal, apical lateral, mid anterior lateral, basal anterior lateral, mid anterior septal, mid inferior lateral, basal anterior septal and basal inferior lateral montgomery were hypokinetic. Findings: Study Quality * Technically adequate exam. ECG Findings * Sinus rhythm, occasional A sense V pace. Left Ventricle * LVEF 25%. * Mildly dilated left ventricle. * Severe global left ventricular systolic dysfunction. * There is no LV thrombus. * Definity echo contrast was used. Right Ventricle * Mildly dilated right ventricle. * Moderate right ventricular hypokinesis. Left Atrium * Mildly dilated left atrium. Right Atrium * Mildly dilated right atrium. Device lead * A device lead was visualized in the right atrium and right ventricle. Pleural effusion * Large pleural effusion. - Attending Attestation I examined this patient and my medical decision-making was reviewed with the Resident Physician Dr Trinh. I agree with the documented findings, dis position and treatment plan as described except to the extent set forth below/addl details above Mr Mederos is 83 y/o male with hx of chronic systolic CHF presented to ED with weight gain and progressive dyspnea since lasix being stopped in recent weeks. He has noted hypotension. He has not had a BP that supports diuresis this admission. CArdiology following and is recommending pt see [facility] Cards at [facility] to consider addl treatment options for progressive CHF. As he was trialed on lasix small amount 09/23 and Bp did not support further diuresis 09/24, cards is now recommending pt consider inpt transfer as opposed to outpt eval at [facility]. Family and pt agreeable after further discussion with palliative care team. Transfer being facilitated. awake, family at bedside. no cp, pressure, palpitations. not sob at rest but + sob with any exertion. + lightheaded and dizzy. improved appetite and sleep while here. gen- alert, awake,appears stated age eyes- pupils equal round, no conjunctival pallor cv- reg rate and rhythm, normal s1,s2, no murmurs appreciated, no le edema lungs- ctabl, no wheezing, rhonchi , + bibasilar crackles, normal resp effort on ra abd- soft, non tender, non distended, + bs, no pulsatile mass neuro- AAOx3, CN grossly intac Acute exac chronic systolic CHF as evidenced by bl pleural effusions- cards is following, rec for gentle diuresis and close bp monitoring and he did not tolerate it with inability to give lasix today, ef 20% in february 2018 -cards rec for transfer to [facility] for inpt eval and pt/family agreeable -he is not on any home meds due to hypotension outpt -echo obtained 09/24: EF 25%, severe global LV dysfunction, mildly dilated RV, mod RV hypokinesis, mildly dilated atria -ICD interrogated, normal functioning, intermittent episodes of increased V rates up to 2 sec long over last month -transfer to [facility] for eval by [facility] for inotropic IV support or LVAD verses palliative care. Chronic Afib, currently NSR- cont home asa Hypotension - s/p albumin initally, orthostat neg, no chest pain, but epigastric pain, given tobacco use hx check US abdomen to rule out AAA: normal -not a sepsis picture at this time, not likely related to anemia as stable thus far -likely related to his CHF Chronic Anemia, hgb 10s- no active bleeding, cont to monitor eigastric pain in setting of chronic anemia, asa and tobacco use- check fobt: neg, abd US as above, ppi thrombocytopenia, plt 126- no active bleeding, cont to monitor Further diagnoses and plan as above. vte ppx scds transfer to [facility] awaiting accepting physician and bed placement. <Kaya Trinh L - Last Filed: 09/24/18 13:50> (1) Hypotension Qualifiers: Hypotension type: unspecified hypotension type Qualified Code(s): I95.9 - Hypotension, unspecified (3) COPD (chronic obstructive pulmonary disease) Qualifiers: COPD type: unspecified COPD Qualified Code(s): J44.9 - Chronic obstructive pulmonary disease, unspecified (4) Dyspnea Qualifiers: Dyspnea type: unspecified Qualified Code(s): R06.00 - Dyspnea, unspecified (5) Systolic heart failure Qualifiers: Qualified Code(s): I50.20 - Unspecified systolic (congestive) heart failure <Evonne Castellanos - Last Filed: 09/24/18 16:00> (2) Bilateral inguinal hernia Qualifiers: Obstruction and gangrene presence: without obstruction or gangrene Recurrence: not specified as recurrent Qualified Code(s): K40.20 - Bilateral inguinal hernia, without obstruction or gangrene, not specified as recurrent (3) COPD (chronic obstructive pulmonary disease) Qualifiers: COPD type: unspecified COPD Qualified Code(s): J44.9 - Chronic obstructive pulmonary disease, unspecified (5) Hypotension Qualifiers: Hypotension type: unspecified hypotension type Qualified Code(s): I95.9 - Hypotension, unspecified (6) Atrial fibrillation Qualifiers: Atrial fibrillation type: chronic Qualified Code(s): I48.2 - Chronic atrial fibrillation
[2018-09-24] MEDS ORDERED: Perflutren Lipid Microsphere 1.3 ML in 0.9 % Sodium Chloride 8.7 ML IVP ONE (09:24)
[2018-09-24] MEDS: 0.9 % Sodium Chloride 250 ML IVC ONE ×2 (10:31→12:53)
--- NOTE | 2018-09-24 13:16 | Cardiology Progress Note ---
Date of Encounter: 09/24/18 Time of Encounter: 13:14 Assessment and Plan (1) Acute on chronic systolic (congestive) heart failure Current Visit: No Status: Acute Acute on chronic CHFrEF. EF of 20% on 02/2018. Known NICMP s/p ICD. Repeat TTE shows LVEF 25%, RV hypokenesis. PCP recently stopped diuretic due to hypotension. pt reports 12lb wt gain. Low dose lasix started 09/23/18. Pt actually required fluid bolus due to hypotension. Re-peat CXR today showed increase in small bilateral pleural effusions. unable to tolerate increased doses lasix due to hypotension. Fluid status is positive. I discussed POC with Dr. Simon. Recommends consideration of transfer to facility with higher level of care that offers inotropic IV support or LVAD verses palliative care. He is currently full code. Pt states that he wants to just go home. Family will discuss further. I will place consult for palliative care to discuss code status and manager terminal goals. He is not on bb or arb at this time secondary to hypotension. (2) Nonischemic cardiomyopathy Current Visit: No Status: Chronic (3) Implantable cardioverter-defibrillator (ICD) in situ Current Visit: Yes Status: Acute ICD check completed. Normal functioning device. No shocks. There was intermittent episodes of increased V rates up to 2 sec long over last month. Last event at 2 sec was 09/01/18. Optivol increased over past month suggesting fluid overload. (4) Atrial fibrillation Current Visit: No Status: Chronic RRR, no intervention needed at this time. Qualifiers: Atrial fibrillation type: chronic Qualified Code(s): I48.2 - Chronic atrial fibrillation Discussion w patient/family: The assessment and plan as outlined above was discussed with the patient and/or family members who expressed understanding and agreement. All questions were answered. Thank you for involving us in the care of your patient. Please call with any questions. Subjective Principal diagnosis: CHFrEF Interval history: Mr. Mederos states that he feels better because he slept last night. Family at bedside with no new complaints. Objective Vital Signs, Last 4 Hours BP 09/24/18 12:14 96/69 General: Conversant, No Apparent Distress HEENT: Atraumatic, Normocephaly, Mucus Membranes Moist Neck: No JVD, Normal carotid pulses Cardiac: Reg Rate and Rhythm, Normal S1 and S2, No Murmur Lungs: Normal Breath Sounds, No Wheeze, Rales, Rhonchi Neuro: Alert and responsive, No focal deficits noted Abdomen: Soft, Non-Tender Skin: No rashes noted on visualized skin Musculoskeletal: No Chest Wall Tenderness Extremities: No Clubbing, No Cyanosis, Normal Pulses, Other (Trace edema ankles) Results 09/24/18 04:30 09/24/18 04:30 Lab Results 09/24/18 09/24/18 04:30 04:30 WBC 4.6 Hgb 10.1 L Hct 31.9 L Plt Count 126 L Sodium 139 Potassium 4.1 Chloride 104 Carbon Dioxide 26 BUN 29 H Creatinine 0.96 Glucose 102 Calcium 8.9 - Imaging and Cardiology Echo: report reviewed - EKG Interpretation EKG results cardiology: personally reviewed Consult Discharge Plan - Plan Referrals: Kirt Trevino DO [Primary Care Provider] - 09/30/18 9:45 am
--- NOTE | 2018-09-24 15:02 | Palliative - Consult Note ---
Date of Encounter: 09/24/18 Time of Encounter: 15:00 - Assessment and Plan (1) Goals of care, counseling/discussion Current Visit: Yes Status: Acute Assessment and plan: Met with patient and family for 30min in room and additional 15 min in coordination of care speaking with hospitalist and cardiology team. Completed goals of care discussion with pt. His and 4 out of 8 children were present for conversation. They have been updated clinically by primary and hospitalist team regarding state of disease. He understands that there is little else to be offered here, but that referral to [facility] remains an option for evaluation for LVAD. I discussed the other options of comfort care, and discussed that he is a candidate for hospice care if he does not want to pursue further life prolonging measures. Discussed the goals of hospice would be to manage the symptoms of his disease at home, without further aggressive measures, and typically not continuing to return to the hospital. Discussed that most patients decline resuscitation at that time, and allow the natural disease course to occur. Patient and family do not want to proceed with any transition for comfort care, and would like to at least speak with [facility] team for that evaluation. D/W Dr. Mesa (2) Bilateral pleural effusion Current Visit: Yes Status: Acute (3) Congestive heart failure Current Visit: Yes Status: Acute Qualifiers: Heart failure type: systolic Heart failure chronicity: acute on chronic Qualified Code(s): I50.23 - Acute on chronic systolic (congestive) heart failure (4) Dyspnea Current Visit: No Status: Acute Qualifiers: Dyspnea type: unspecified Qualified Code(s): R06.00 - Dyspnea, unspecified (5) Nonischemic cardiomyopathy Current Visit: No Status: Chronic Palliative-CN HPI - Data of Consult Requesting Physician: Evonne Castellanos Primary Care Provider: Kirt Trevino DO - Consult Narrative History of present illness: Mr. Mederos is a 83 year old male CC: Evonne Castellanos - Time Spent with Patient Time: Total time spent is greater than 50% in coordination of care (as documented) at patient's floor/unit and/or counseling patient: Past Med Surg Social Fam HX - Past Medical History Medical history: asthma, atrial fibrillation, cancer, CHF, COPD, hyperlipidemia Additional medical history: colon CA Psychiatric history: anxiety, depression - Past Surgical History Surgical History: cancer surgery, colectomy, herniorrhaphy, tonsilectomy, pacemaker Additional surgical history: colectomy - Social History Smoking Status: Former smoker Smokeless Tobacco Status: Yes (chewing tobacco) Alcohol use: none Drug use: none - Family History Mother Hx Family Endocrine Disorder: Yes (diabetes) Father History Unknown: Yes Hx Family Cardiac Disorders: Yes Medications and Allergies Aspirin [Lo-Dose Aspirin EC] 81 mg PO DAILY 08/25/16 [History] Sertraline [Zoloft] 100 mg PO DAILY 08/25/16 [History] Allergy/AdvReac Type Severity Reaction Status Date / Time No Known Allergies Allergy Verified 01/27/18 13:13 Palliative Care-Exam - Constitutional Vitals: Temp Pulse Resp BP Pulse Ox 97.4 F L 76 17 96/69 96 09/24/18 05:01 09/24/18 06:47 09/24/18 05:01 09/24/18 12:14 09/24/18 06:47 General appearance: Present: no acute distress - Head Head Exam: Present: normal inspection, normocephalic - Eye Eye exam: Present: normal appearance, PERRL - Respiratory Additional comments: Rales bilaterally lower lobes posteriorally. - Cardiovascular Cardiovascular exam: Present: +S1, +S2 - GI/Abdominal Exam GI/Abdominal exam: Present: normal bowel sounds, soft - Additional comments: Voids per urinal - Extremities Exam Extremities exam: Present: normal capillary refill, normal inspection - Neurological Exam Neurological exam: Present: alert, oriented X3, strengths equal and symetr throughout - Psychiatric Psychiatric exam: Present: normal affect, normal mood - Skin Skin exam: Present: dry, warm Internal Medicine - CN: Reslt - Labs CBC & Chem 7: 09/24/18 04:30 09/24/18 04:30 Labs: Short CBC 09/24/18 Range/Units 04:30 WBC 4.6 (4.3-11.1) K/mcL Hgb 10.1 L (12.9-16.9) g/dL Hct 31.9 L (37.5-50.1) % Plt Count 126 L (140-400) K/mcL Neutrophils # 2.9 (1.6-8.9) K/mcL BMP 09/24/18 04:30 Sodium 139 Potassium 4.1 Chloride 104 Carbon Dioxide 26 BUN 29 H Creatinine 0.96 Glucose 102 Calcium 8.9 - Impressions Impressions Chest X-Ray 09/24/18 06:00 IMPRESSION: Slight interval increase in size of small bilateral pleural effusions with interval worsening of left basilar airspace consolidation. D/ / 09/24/2018 10:58:41 Usama Hebert MD / [facility] Interpreting Provider: Usama Hebert MD Aorta Ultrasound 09/24/18 10:00 IMPRESSION: No evidence of abdominal aortic aneurysm. D/ / Rashaad Rinaldi MD / Rashaad Rinaldi MD Interpreting Provider: Rashaad Rinaldi MD Echocardiogram Limited Views 09/24/18 14:50 Impressions: LVEF 25%. Severe global left ventricular systolic dysfunction. Mildly dilated left ventricle. Moderate right ventricular hypokinesis. Mildly dilated right ventricle. Mildly dilated left atrium and right atrium. Left Ventricular Wall Motion: Rest Echo Findings The apex, apical inferior, mid inferior, basal inferior, apical anterior, mid anterior, basal anterior, apical septal, mid inferior septal, basal inferior septal, apical lateral, mid anterior lateral, basal anterior lateral, mid anterior septal, mid inferior lateral, basal anterior septal and basal inferior lateral montgomery were hypokinetic. Findings: Study Quality * Technically adequate exam. ECG Findings * Sinus rhythm, occasional A sense V pace. Left Ventricle * LVEF 25%. * Mildly dilated left ventricle. * Severe global left ventricular systolic dysfunction. * There is no LV thrombus. * Definity echo contrast was used. Right Ventricle * Mildly dilated right ventricle. * Moderate right ventricular hypokinesis. Left Atrium * Mildly dilated left atrium. Right Atrium * Mildly dilated right atrium. Device lead * A device lead was visualized in the right atrium and right ventricle. Consult Discharge Plan - Plan Referrals: Kirt Trevino DO [Primary Care Provider] - 09/30/18 9:45 am Palliative Quality Code Status: 09/22/18 16:25 Resuscitation Status: Active [RES] Routine Comment: Resuscitation Status: Full Code Palliative Scale - Palliative Performance Scale How ambulatory is this patient?: Reduced What is patient's level of activity and evidence of disease?: Unable hobby/housework, Significant disease How much self-care assistance does patient require?: Occasional assistance necessary How much oral intake does the patient have?: Normal or reduced What is this patient's level of consciousness?: Full Palliative Performance Score: 60 %
--- NOTE | 2018-09-24 15:13 | Palliative Progress Note ---
Date of Encounter: 09/24/18 Time of Encounter: 15:20 - Assessment and plan (1) Dyspnea Current Visit: No Status: Acute Assessment and plan: His breathing difficulty and swelling have improved since admission. Currently on Furosemide 20mg daily. On room air and oxygenating well. Qualifiers: Dyspnea type: unspecified Qualified Code(s): R06.00 - Dyspnea, unspecified (2) Goals of care, counseling/discussion Current Visit: Yes Status: Acute Assessment and plan: Spent 30 min in face to face discussion with pt, as well as additional 15 min coordination with hospitalist and cardiology. Discussed goals of care with pt/, and 4 children that were present. They understand the current dilemma of his cardiomyopathy, and that our facility has reached the limits of what we are able to do for him. Discussed that if he does not want to proceed with referral to [facility] for evaluation of LVAD, there is option of transitioning to comfort care, and looking at resources such as hospice to manage the symptoms of his disease. Discussed the philosophy would be to keep him at home, and not returning to the hospital for aggressive treatment. Discussed also usually patient will transition to some form of DNR and not have heroic measures in the event of cardiac or resp arrest. Patient and family have had a negative experience with hospice in the past, and do not desire to proceed with that at this time. Patient stated he is willing to pursue transfer to [facility] for evaluation, and will make decision at that time, depending on whether he is a candidate for intervention. Dr. Trinh present for part of conversation. D/W Jonnie Mederos, [facility] as well. (3) Bilateral pleural effusion Current Visit: Yes Status: Acute (4) Congestive heart failure Current Visit: Yes Status: Acute Qualifiers: Heart failure type: systolic Heart failure chronicity: acute on chronic Qualified Code(s): I50.23 - Acute on chronic systolic (congestive) heart failure (5) Nonischemic cardiomyopathy Current Visit: No Status: Chronic Assessment and plan: EF - 20%. Cardiology following closely. Patient now would like to pursue [facility] referral. - Time Spent With Patient Total time spent is greater than 50% in coordination of care (as documented) at patient's floor/unit and/or counseling patient: - Subjective Interval history: Patient is an 83y/o male who presented to hospital for increased work of breathing and lower extremity edema. He typically takes Furosemide at home, however, this was recently discontinued due to hypotension, and he had fluid gain and increased symptoms. Cardiology has been following closely. He has h/o pacer/AICD, as well as COPD, CHF, Cardiomyopathy with EF 20%, atrial fibrillation. His blood pressure has still been labile - they have been gently diuresing. Cardiology discussed [facility] transfer earlier, and at that time, pt stated he just wanted to go home. Palliative care was consulted to assist with goals of care discussion, possible hospice evaluation, and code status discussion. Upon my visit, pt is alert and oriented. Converses well. Multiple family members in room. Denies any pain/discomfort., states breathing is better, and less edema. Denies n/v, constipation, anxiety. States he would like to go home "one day or two", and then would consider going to [facility]. - Constitutional Vitals: Abnormal lab results RBC 3.36 M/mcL (4.19-5.50) L 09/24/18 04:30 Hgb 10.1 g/dL (12.9-16.9) L 09/24/18 04:30 Hct 31.9 % (37.5-50.1) L 09/24/18 04:30 RDW 17.0 % (11.5-14.5) H 09/24/18 04:30 Plt Count 126 K/mcL (140-400) L 09/24/18 04:30 BUN 29 mg/dL (8-23) H 09/24/18 04:30 BUN/Creatinine Ratio 30 (6-26) H 09/24/18 04:30 Alkaline Phosphatase 115 Units/L (34-104) H 09/22/18 14:32 B-Natriuretic Peptide 3242 pg/mL (Less than 100) H 09/22/18 14:32 Ur Specimen Adequacy See below A 09/22/18 15: Urine Clarity Cloudy (Clear) A 09/22/18 15:26 Urine Bilirubin Small (Negative) H 09/22/18 15:26 Ur Leukocyte Esterase Trace (Negative) H 09/22/18 15:26 Urine Microscopic RBC 3-5 per hpf (0-3) H 09/22/18 15:26 Urine Microscopic WBC 3-5 per hpf (0-3) H 09/22/18 15:26 Ur Squamous Epith Cells Moderate per lpf (None-Few) H 09/22/18 15:26 Ur Culture Indicated? YES (NO) A 09/22/18 15:26 Palliative Quality Palliative Quality: Screen for Code Status: Yes, Screen for Goals of Care: Yes, Screen for Pain: Yes, If Pain Regimen Started, Initiate Bowel Regimen: NA, Screen for Nausea/Vomitting: Yes Code Status: 09/22/18 16:25 Resuscitation Status: Active [RES] Routine Comment: Resuscitation Status: Full Code - Labs CBC & Chem 7: 09/24/18 04:30 09/24/18 04:30 Labs: Laboratory Results - last 24 hr 09/23/18 09/24/18 09/24/18 21:20 04:30 04:30 WBC 4.6 RBC 3.36 L Hgb 10.1 L Hct 31.9 L MCV 94.9 MCH 30.1 MCHC 31.7 RDW 17.0 H Plt Count 126 L MPV 10.0 Immature Gran % 0.2 Seg Neutrophils % 63.2 Lymphocytes % 20.8 Monocytes % 10.5 Eosinophils % 4.4 Basophils % 0.9 Neutrophils # 2.9 Lymphocytes # 1.0 Monocytes # 0.5 Eosinophils # 0.2 Basophils # 0.0 Sodium 139 Potassium 4.1 Chloride 104 Carbon Dioxide 26 BUN 29 H Creatinine 0.96 Est GFR ( Amer) > 60 Est GFR (Non-Af Amer) > 60 BUN/Creatinine Ratio 30 H Glucose 102 Calculated Osmolality 294 Calcium 8.9 Stool Occult Blood Negative - Impressions Impressions Chest X-Ray 09/24/18 06:00 IMPRESSION: Slight interval increase in size of small bilateral pleural effusions with interval worsening of left basilar airspace consolidation. D/ / 09/24/2018 10:58:41 Usama Hebert MD / [facility] Interpreting Provider: Usama Hebert MD Aorta Ultrasound 09/24/18 10:00 IMPRESSION: No evidence of abdominal aortic aneurysm. D/ / Rashaad Rinaldi MD / Rashaad Rinaldi MD Interpreting Provider: Rashaad Rinaldi MD Echocardiogram Limited Views 09/24/18 14:50 Impressions: LVEF 25%. Severe global left ventricular systolic dysfunction. Mildly dilated left ventricle. Moderate right ventricular hypokinesis. Mildly dilated right ventricle. Mildly dilated left atrium and right atrium. Left Ventricular Wall Motion: Rest Echo Findings The apex, apical inferior, mid inferior, basal inferior, apical anterior, mid anterior, basal anterior, apical septal, mid inferior septal, basal inferior septal, apical lateral, mid anterior lateral, basal anterior lateral, mid anterior septal, mid inferior lateral, basal anterior septal and basal inferior lateral montgomery were hypokinetic. Findings: Study Quality * Technically adequate exam. ECG Findings * Sinus rhythm, occasional A sense V pace. Left Ventricle * LVEF 25%. * Mildly dilated left ventricle. * Severe global left ventricular systolic dysfunction. * There is no LV thrombus. * Definity echo contrast was used. Right Ventricle * Mildly dilated right ventricle. * Moderate right ventricular hypokinesis. Left Atrium * Mildly dilated left atrium. Right Atrium * Mildly dilated right atrium. Device lead * A device lead was visualized in the right atrium and right ventricle. Palliative Scale - Palliative Performance Scale How ambulatory is this patient?: Reduced What is patient's level of activity and evidence of disease?: Unable hobby/house work, Significant disease How much self-care assistance does patient require?: Occasional assistance necessary How much oral intake does the patient have?: Normal or reduced What is this patient's level of consciousness?: Full Palliative Performance Score: 60 % Consult Discharge Plan - Plan Referrals: Kirt Trevino DO [Primary Care Provider] - 09/30/18 9:45 am
--- NOTE | 2018-09-24 15:30 | Discharge Summary ---
<Evonne Castellanos - Last Filed: 09/24/18 16:01> Orders not resulted at time of discharge: Pending orders 09/22/18 14:15 Culture,Blood [BC] Stat 09/25/18 04:00 BMP [Basic Metabolic Panel] AM 0400 Complete Blood Count [HEME] AM 0400 09/26/18 04:00 BMP [Basic Metabolic Panel] AM 0400 Complete Blood Count [HEME] AM 0400 Date of Encounter: 09/24/18 - Discharge Diagnosis (1) Acute on chronic systolic (congestive) heart failure Status: Acute (2) Bilateral inguinal hernia Status: Chronic Qualifiers: Obstruction and gangrene presence: without obstruction or gangrene Recurrence: not specified as recurrent Qualified Code(s): K40.20 - Bilateral inguinal hernia, without obstruction or gangrene, not specified as recurrent (3) COPD (chronic obstructive pulmonary disease) Status: Chronic Qualifiers: COPD type: unspecified COPD Qualified Code(s): J44.9 - Chronic obstructive pulmonary disease, unspecified (4) Nonischemic cardiomyopathy Status: Chronic (5) Hypotension Status: Acute Qualifiers: Hypotension type: unspecified hypotension type Qualified Code(s): I95.9 - Hypotension, unspecified (6) Atrial fibrillation Status: Chronic Qualifiers: Atrial fibrillation type: chronic Qualified Code(s): I48.2 - Chronic atrial fibrillation Hospital course: Mr. Mederos is a 83 year old male - Time Spent with Patient Total time spent providing and/or coordinating discharge services: Less than 30 minutes - Discharge Medications Home Medications: Aspirin [Lo-Dose Aspirin EC] 81 mg PO DAILY 08/25/16 [History] Sertraline [Zoloft] 100 mg PO DAILY 08/25/16 [History] Acetaminophen [Tylenol] 650 mg PO Q6HR PRN tablet 09/24/18 [Rx] Albuterol Neb [Proventil Neb] 2.5 mg IH [id number] PRN inhsol 09/24/18 [Rx] Melatonin 3 mg PO HS tablet 09/24/18 [Rx] Omeprazole [PriLOSEC] 40 mg PO DAILY@0630 capsule. 09/24/18 [Rx] Allergies/Adverse Reactions: Allergy/AdvReac Type Severity Reaction Status Date / Time No Known Allergies Allergy Verified 01/27/18 13:13 Date of admission: 09/24/18 14:47 Primary care physician: Kirt Trevino DO Consults: 09/22/18 15:55 Consult to Cardiology [CONS] Stat Comment: Consulting Provider: Cardiology [facility] Reason for Consult: Congestive heart failure Time Notified: 15:56 Call Completed: Yes 09/23/18 14:26 Consult to Physical Therapy [CONS] Routine Comment: Evaluate, develop and implement POC Reason for Consult: gait stability assessment with lightheadedness and generalized weakness Does patient have active BEDREST order?: No Is patient medically & hemodynamically stable?: Yes Patient assessed for mobility or mobilized this visit?: No 09/24/18 13:43 Consult to Palliative Care [CONS] Routine Comment: Consulting Provider: Palliative [facility] Reason for Consult: Poor prognosis, discuss options such as hospice, change in code status. Call Completed: No - Constitutional Vitals: Temp Pulse Resp BP Pulse Ox 97.4 F L 94 17 90/65 95 09/24/18 05:01 09/24/18 15:05 09/24/18 05:01 09/24/18 15:05 09/24/18 15:05 - Patient Status Disposition: Transfer Short-Term Hosp Condition: Fair - Discharge Instructions Follow Up With: Kirt Trevino DO [Primary Care Provider] - 09/30/18 9:45 am - Attending Attestation I examined this patient and my medical decision-making was reviewed with the Resident Physician Dr Trinh. I agree with the documented findings, disposition and treatment plan as described except to the extent set forth below/addl details above Mr Mederos is 83 y/o male with hx of chronic systolic CHF presented to ED with weight gain and progressive dyspnea since lasix being stopped in recent weeks. He has noted hypotension. He has not had a BP that supports diuresis this admission. CArdiology following and is recommending pt see [facility] Cards at [facility] to consider addl treatment options for progressive CHF. As he was trialed on lasix small amount 09/23 and Bp did not support further diuresis 09/24, cards is now recommending pt consider inpt transfer as opposed to outpt eval at [facility]. Family and pt agreeable after further discussion with palliative care team. Transfer being facilitated. awake, family at bedside. no cp, pressure, palpitations. not sob at rest but + sob with any exertion. + lightheaded and dizzy. improved appetite and sleep while here. gen- alert, awake,appears stated age eyes- pupils equal round, no conjunctival pallor cv- reg rate and rhythm, normal s1,s2, no murmurs appreciated, no le edema lungs- ctabl, no wheezing, rhonchi , + bibasilar crackles, normal resp effort on ra abd- soft, non tender, non distended, + bs, no pulsatile mass neuro- AAOx3, CN grossly intac Acute exac chronic systolic CHF as evidenced by bl pleural effusions- cards is following, rec for gentle diuresis and close bp monitoring and he did not tolerate it with inability to give lasix today, ef 20% in february 2018 -cards rec for transfer to [facility] for inpt eval and pt/family agreeable -he is not on any home meds due to hypotension outpt -echo obtained 09/24: EF 25%, severe global LV dysfunction, mildly dilated RV, mod RV hypokinesis, mildly dilated atria -ICD interrogated, normal functioning, intermittent episodes of increased V rates up to 2 sec long over last month -transfer to [facility] for eval by [facility] for inotropic IV support or LVAD verses palliative care. Chronic Afib, currently NSR- cont home asa Hypotension - s/p albumin initally, orthostat neg, no chest pain, but epigastric pain, given tobacco use hx check US abdomen to rule out AAA: normal -not a sepsis picture at this time, not likely related to anemia as stable thus far -likely related to his CHF Chronic Anemia, hgb 10s- no active bleeding, cont to monitor eigastric pain in setting of chronic anemia, asa and tobacco use- check fobt: neg, abd US as above, ppi thrombocytopenia, plt 126- no active bleeding, cont to monitor Further diagnoses and plan as above. vte ppx scds transfer to [facility] awaiting accepting physician and bed placement. time spent on dc: 25 min <Kaya Trinh - Last Filed: 09/25/18 07:21> - NOTES TO OUTPATIENT PROVIDER Notes to Outpatient Provider: 1. Pt was seen for increasing dyspnea after being removed from Lasix. Recommended inpatient evaluation by [facility] for discussion of LVAD. 2. Pt states he has inhalers at home but they are , recommend outpt optimizing of COPD therapy for regular night-time awakenings with wheezing. Orders not resulted at time of discharge: Pending orders 09/22/18 14:15 Culture,Blood [BC] Stat 09/25/18 04:00 BMP [Basic Metabolic Panel] AM 0400 Complete Blood Count [HEME] AM 0400 09/26/18 04:00 BMP [Basic Metabolic Panel] AM 0400 Complete Blood Count [HEME] AM 0400 Date of Encounter: 09/25/18 Time of Encounter: 15:24 - Discharge Diagnosis (1) Hypotension Priority: Secondary Status: Acute Assessment and Plan: BP this AM 85/58 after Lasix yesterday BUN:Creatinine ratio 30 Suspect prerenal azotemia Encourage fluid intake Qualifiers: Hypotension type: unspecified hypotension type Qualified Code(s): I95.9 - Hypotension, unspecified (2) Bilateral pleural effusion Priority: Secondary Status: Acute Assessment and Plan: Repeat CXR showed worsening pleural effusion, pt states breathing feels better today. Recommend further management with optimizing of HF through medications/mechanical means. (3) COPD (chronic obstructive pulmonary disease) Priority: Secondary Status: Chronic Assessment and Plan: PRN albuterol IH as needed for wheezing Qualifiers: COPD type: unspecified COPD Qualified Code(s): J44.9 - Chronic obstructive pulmonary disease, unspecified (4) Dyspnea Priority: Secondary Status: Acute Assessment and Plan: Pt will occasionally require oxygen at night due to wheezing/dyspnea Qualifiers: Dyspnea type: unspecified Qualified Code(s): R06.00 - Dyspnea, unspecified (5) Systolic heart failure Priority: Primary Status: Chronic Assessment and Plan: Repeat limited echo shows EF 25%, echo from February 2018 shows LVEF 20% with severe global LV systolic dysfunction with indeterminate diastolic function, bi- atrial enlargement, mod mitral regurg, mild-mod tricuspid and pulmonic regurg, borderline pulmonary HTN, with dilated IVC. - Recommend further evaluation by [facility] with evaluation for possible LVAD Qualifiers: Qualified Code(s): I50.20 - Unspecified systolic (congestive) heart failure Hospital course: Mr. Mederos is a 83 year old male PMHx COPD, CHF, A fib, presenting with WILIAN after PCP stopped Lasix two weeks prior for hypotension. On presentation, pt had mild emma LE edema 1+ to ankles and emma rales in his bases. Pt was given dose of albumin which resolved LE edema but did not improve BP. Cardiology was consulted and they recommended a trial of Lasix, which only resulted in worsening hypotension, so was stopped. During inpatient admission, repeat limited echocardiogram showed EF 25% with large pleural effusion, and repeat CXR showed worsening opacities as compared to admit CXR. Cardiology recommended transfer to [facility] for evaluation of possible LVAD placement, options were discussed with family, patient, and palliative care. Family decided to pursue transfer. All options were explained and patient and family were given an opportunity to ask questions. All of their concerns were addressed. Accepting physician at [facility] Dr. Schroeder. Discharge discussed with: patient, family Time spent discussing smoking cessation with patient: 3 to 10 minutes - Time Spent with Patient Total time spent providing and/or coordinating discharge services: Less than 30 minutes Date of admission: 09/22/18 17:52 Primary care physician: Kirt Trevino DO Consults: 09/22/18 15:55 Consult to Cardiology [CONS] Stat Comment: Consulting Provider: Card[facility] [place] Reason for Consult: Congestive heart failure Time Notified: 15:56 Call Completed: Yes 09/23/18 14:26 Consult to Physical Therapy [CONS] Routine Comment: Evaluate, develop and implement POC Reason for Consult: gait stability assessment with lightheadedness and generalized weakness Does patient have active BEDREST order?: No Is patient medically & hemodynamically stable?: Yes Patient assessed for mobility or mobilized this visit?: No 09/24/18 13:43 Consult to Palliative Care [CONS] Routine Comment: Consulting Provider: [facility] Reason for Consult: Poor prognosis, discuss options such as hospice, change in code status. Call Completed: No - Constitutional Vitals: Temp Pulse Resp BP Pulse Ox 97.4 F L 94 17 90/65 95 09/24/18 05:01 09/24/18 15:05 09/24/18 05:01 09/24/18 15:05 09/24/18 15:05 General appearance: Present: cachectic Exam: Gen: Poorly nourished, thin, cachetic male, comfortably laying in bed, in no acute distress HENT: EOMI, PRADEEP, moist mucous membranes, edentulous, nontraumatic, normocephalic Cardio: irregular rate and rhythm, no S3 auscultated today Chest: Not tender to palpation, pacemaker present in left anterior chest Pulm: Wheezes in emam bases, clear in other lung stephens Abd: Not distended, not TTP in any quadrant, normoactive bs x 4, not rigid, no guarding or rebound tenderness. Vertical scar present left and lateral to umbilicus Extremities: No swelling noted today, hairless LE, full ROM Skin: Warm, dry, intact Neuro: A&O x 3, mentating well, easily engaged in conversation - Patient Status Functional capacity at discharge: independent ambulation Overall status at discharge: patient is back to baseline - Diet and Activity Activity: increase activity as tolerated Diet: other (cardiac diet)
[2018-09-24 20:26] VITALS: BP 94/56
== END 2018-09-24 23:39 | disposition short-term general hospital (02) | DRG 292 ==
LOC: EMEROOARM 13:10 → 2NENU 13:10 → SUATTDRO 17:52 → 2NENU 18:47
PROVIDERS: ADMIT Internal Medicine; ATTEND Internal Medicine

== ENCOUNTER 2020-01-29 14:10 | Observation (INO) ==
[2020-01-29] MEDS ORDERED: Naloxone 0.4 MG/ML INJ IVP PRN (17:51)
[2020-01-29] MEDS ORDERED: *HR* Heparin 5,000 UNIT/ML VIAL SQ SCH (18:15)
[2020-01-29] MEDS ORDERED: *HR* Rivaroxaban 15 MG TABLET PO STA (19:37)
[2020-01-29] MEDS: Melatonin 3 MG TABLET PO SCH (21:04)
[2020-01-30 00:34] LABS: BUN/Creatinine Ratio 26 (6-26); Blood Urea Nitrogen 29 mg/dL (8-23); Calcium 9.3 mg/dL (8.6-10.3); Carbon Dioxide 30 mEq/L (23-29); Chloride 103 mEq/L (98-107); Glucose 87 mg/dL (70-105); Magnesium 2.2 mg/dL (1.6-2.6); Osmolality,Calculated 289 (280-300); Phosphorous 3.4 mg/dL (2.7-4.5); Potassium 4.1 mEq/L (3.5-5.1); Sodium 137 mEq/L (136-145); Troponin I < 0.03 ng/mL (< 0.04); eGFR For African Americans > 60 (> 60); eGFR For Non-African Americans > 60 (> 60)
[2020-01-30] MEDS: *HR* Amiodarone 200 MG TABLET PO SCH ×2 (13:14→20:01)
[2020-01-30] MEDS ORDERED: *HR* Rivaroxaban 15 MG TABLET PO SCH (17:00)
[2020-01-30] MEDS: Melatonin 3 MG TABLET PO SCH (20:01)
[2020-01-31 02:12] LABS: Hematocrit 36.4 % (37.5-50.1); Hemoglobin 11.7 g/dL (12.9-16.9); Mean Corpuscular HGB Conc 32.1 g/dL (31.6-35.5); Mean Corpuscular Hemoglobin 31.4 pg (28.0-33.3); Mean Corpuscular Volume 97.6 fL (83.0-100.0); Mean Platelet Volume 9.3 fL (9.4-12.4); Platelet Count 155 K/mcL (140-400); Red Blood Count 3.73 M/mcL (4.19-5.50); White Blood Count 6.5 K/mcL (4.3-11.1)
[2020-01-31 02:26] LABS: BUN/Creatinine Ratio 27 (6-26); Blood Urea Nitrogen 29 mg/dL (8-23); Calcium 9.5 mg/dL (8.6-10.3); Carbon Dioxide 29 mEq/L (23-29); Chloride 103 mEq/L (98-107); Glucose 109 mg/dL (70-105); Magnesium 2.2 mg/dL (1.6-2.6); Osmolality,Calculated 288 (280-300); Potassium 4.1 mEq/L (3.5-5.1); Sodium 136 mEq/L (136-145); eGFR For African Americans > 60 (> 60); eGFR For Non-African Americans > 60 (> 60)
[2020-01-31 07:10] VITALS: BP 116/62
[2020-01-31] MEDS ORDERED: NON-FORMULARY MEDICATION 1 EACH EACH (Midodrine Hcl 2.5 MG) PO PRN (07:54)
[2020-01-31] MEDS ORDERED: Ascorbic Acid 500 MG TABLET PO SCH (08:00)
[2020-01-31] MEDS ORDERED: Furosemide 20 MG TABLET PO SCH (09:00)
[2020-01-31] MEDS ORDERED: Cyanocobalamin (B-12) 1,000 MCG TABLET PO SCH (09:00)
[2020-01-31] MEDS: *HR* Amiodarone 200 MG TABLET PO SCH (09:12)
[2020-01-31] MEDS ORDERED: Simethicone 80 MG TAB.CHEW PO SCH (21:00)
== END 2020-01-31 11:39 | disposition home or self-care (01) ==
LOC: 3BNU
PROVIDERS: ADMIT Internal Medicine; ATTEND Internal Medicine

== ENCOUNTER 2020-07-16 19:03 | Observation (INO) ==
[2020-07-16] MEDS ORDERED: Aspirin 81 MG TAB.CHEW PO ONE (19:17)
[2020-07-16] MEDS ORDERED: Nitroglycerin 0.4 MG TAB.SUBL SL PRN (19:17)
[2020-07-16 19:34] LABS: Basophils % 0.6 %; Eosinophils # 0.2 K/mcL (0.0-0.6); Eosinophils % 2.8 %; Hemoglobin 10.8 g/dL (12.9-16.9); Immature Granulocytes % 0.5 % (0-4); Lymphocytes # 1.1 K/mcL (0.6-4.6); Lymphocytes % 17.2 %; Mean Corpuscular HGB Conc 31.8 g/dL (31.6-35.5); Mean Corpuscular Hemoglobin 32.5 pg (28.0-33.3); Mean Corpuscular Volume 102.4 fL (83.0-100.0); Mean Platelet Volume 8.8 fL (9.4-12.4); Monocytes # 0.5 K/mcL (0.0-1.3); Monocytes % 8.3 %; Neutrophils # 4.5 K/mcL (1.6-8.9); Platelet Count 177 K/mcL (140-400); Red Blood Count 3.32 M/mcL (4.19-5.50); Red Cell Distribution Width 13.2 % (11.5-14.5); Segmented Neutrophils % 70.6 %; White Blood Count 6.4 K/mcL (4.3-11.1)
[2020-07-16 19:37] LABS: Prothrombin Time 22.7 Seconds (9.4-12.1)
[2020-07-16 19:40] LABS: Activated Partial Thrombo Time 48.6 Seconds (26.0-36.0)
[2020-07-16] MEDS ORDERED: Isovue-370 500 ML BOTTLE IVP ONE (19:51)
[2020-07-16 19:55] LABS: BUN/Creatinine Ratio 16 (6-26); Blood Urea Nitrogen 24 mg/dL (8-23); Calcium 9.4 mg/dL (8.6-10.3); Carbon Dioxide 28 mEq/L (23-29); Chloride 102 mEq/L (98-107); Glucose 115 mg/dL (70-105); Lipase 27 Units/L (11-82); Osmolality,Calculated 291 (280-300); Potassium 4.2 mEq/L (3.5-5.1); Sodium 138 mEq/L (136-145); Troponin I < 0.03 ng/mL (< 0.04); eGFR For African Americans 55 (> 60); eGFR For Non-African Americans 46 (> 60)
[2020-07-16] MEDS ORDERED: 0.9 % Sodium Chloride 1,000 ML IVC SCH ×2 (21:00→22:55)
[2020-07-16] MEDS ORDERED: Naloxone 0.4 MG/ML INJ IVP PRN (21:55)
[2020-07-16] MEDS ORDERED: Perflutren Lipid Microsphere 1.3 ML in 0.9 % Sodium Chloride 8.7 ML IVP PRN ×2 (22:24→22:25)
[2020-07-16 22:44] LABS: Bilirubin,Urine Negative (Negative); Blood,Urine Trace (Negative); Clarity,Urine Clear (Clear); Color,Urine Colorless (Yellow); Glucose,Urine (UA) Normal (Normal); Ketones,Urine Negative (Negative); Leukocyte Esterase,Urine Negative (Negative); Nitrite,Urine Negative (Negative); PH,Urine 6.5 pH Units (5.0-8.0); Protein,Urine Negative (Neg-Trace); Specific Gravity,Urine > 1.030 (1.010-1.025); Urobilinogen,Urine Normal (Normal); WBC,Urine 0-3 per hpf (0-3)
[2020-07-16 23:38] LABS: % Iron Saturation 24 % (20-55); Iron 82 mcg/dL (65-175); Transferrin 249 mg/dL (203-362)
[2020-07-16 23:57] LABS: Ferritin 101 ng/mL (20-250)
[2020-07-17] MEDS: Sennosides/Docusate Sodium TABLET PO SCH ×2 (00:02→08:18)
[2020-07-17 00:06] LABS: Folate > 22.3 ng/mL (3.0-16.0); Vitamin B12 538 pg/mL (250-1100)
[2020-07-17 02:13] LABS: Hematocrit 31.8 % (37.5-50.1); Hemoglobin 9.9 g/dL (12.9-16.9); Mean Corpuscular HGB Conc 31.1 g/dL (31.6-35.5); Mean Corpuscular Hemoglobin 31.8 pg (28.0-33.3); Mean Corpuscular Volume 102.3 fL (83.0-100.0); Mean Platelet Volume 9.2 fL (9.4-12.4); Platelet Count 170 K/mcL (140-400); Red Blood Count 3.11 M/mcL (4.19-5.50); Red Cell Distribution Width 13.4 % (11.5-14.5); White Blood Count 5.7 K/mcL (4.3-11.1)
[2020-07-17 02:34] LABS: BUN/Creatinine Ratio 16 (6-26); Blood Urea Nitrogen 22 mg/dL (8-23); Calcium 8.9 mg/dL (8.6-10.3); Carbon Dioxide 28 mEq/L (23-29); Chloride 102 mEq/L (98-107); Glucose 94 mg/dL (70-105); Osmolality,Calculated 287 (280-300); Potassium 3.9 mEq/L (3.5-5.1); Sodium 137 mEq/L (136-145); eGFR For African Americans > 60 (> 60); eGFR For Non-African Americans 51 (> 60)
[2020-07-17 07:29] VITALS: BP 105/56
[2020-07-17] MEDS ORDERED: *HR* Rivaroxaban 15 MG TABLET PO SCH (09:00)
[2020-07-17] MEDS ORDERED: Aspirin 81 MG TAB.CHEW PO SCH (09:00)
== END 2020-07-17 12:31 | disposition home or self-care (01) ==
LOC: 3BNU 19:03 → EMEROOARM 19:03 → 3BNU 23:04
PROVIDERS: ADMIT Internal Medicine; ATTEND Internal Medicine

== ENCOUNTER 2021-01-20 17:43 | Inpatient (IN) ==
[2021-01-20] MEDS ORDERED: Acetaminophen 325 MG TABLET PO PRN (20:41)
[2021-01-20] MEDS ORDERED: Ondansetron 4 MG/2 ML VIAL IVP PRN (20:41)
[2021-01-20] MEDS ORDERED: Naloxone 0.4 MG/ML INJ IVP PRN (20:41)
[2021-01-20] MEDS: Doxycycline 100 MG in 0.9 % Sodium Chloride Mini Bag 100 ML IVPB SCH (22:52)
[2021-01-20] MEDS: MetroNIDAZOLE 500 MG/100 ML 500 MG/100 ML BAG IVPB SCH (23:56)
[2021-01-20] MEDS: Cefepime HCl 1,000 MG in 0.9 % Sodium Chloride Mini Bag 100 ML IVPB SCH (23:57)
[2021-01-21 01:01] LABS: Basophils % 0.2 %; Eosinophils % 0.1 %; Hematocrit 25.9 % (37.5-50.1); Hemoglobin 7.9 g/dL (12.9-16.9); Immature Granulocytes % 2.2 % (0-4); Lymphocytes # 0.4 K/mcL (0.6-4.6); Lymphocytes % 3.1 %; Mean Corpuscular HGB Conc 30.5 g/dL (31.6-35.5); Mean Corpuscular Hemoglobin 29.3 pg (28.0-33.3); Mean Corpuscular Volume 95.9 fL (83.0-100.0); Mean Platelet Volume 9.2 fL (9.4-12.4); Monocytes # 0.1 K/mcL (0.0-1.3); Monocytes % 0.9 %; Neutrophils # 11.6 K/mcL (1.6-8.9); Platelet Count 383 K/mcL (140-400); Red Cell Distribution Width 14.7 % (11.5-14.5); Segmented Neutrophils % 93.5 %; White Blood Count 12.4 K/mcL (4.3-11.1)
[2021-01-21 01:22] LABS: BUN/Creatinine Ratio 25 (6-26); Blood Urea Nitrogen 29 mg/dL (8-23); Calcium 8.6 mg/dL (8.6-10.3); Carbon Dioxide 28 mEq/L (23-29); Chloride 90 mEq/L (98-107); Glucose 248 mg/dL (70-105); Magnesium 2.4 mg/dL (1.6-2.6); Osmolality,Calculated 276 (280-300); Phosphorous 3.8 mg/dL (2.7-4.5); Potassium 4.8 mEq/L (3.5-5.1); Sodium 126 mEq/L (136-145); eGFR For African Americans > 60 (> 60); eGFR For Non-African Americans > 60 (> 60)
[2021-01-21] MEDS ORDERED: Furosemide 40 MG/4 ML VIAL IVP ONE (05:48)
[2021-01-21] MEDS: *HR* Heparin 5,000 UNIT/ML VIAL SQ SCH ×2 (06:02→17:26)
[2021-01-21] MEDS: Cefepime HCl 1,000 MG in 0.9 % Sodium Chloride Mini Bag 100 ML IVPB SCH ×3 (08:44→23:58)
[2021-01-21] MEDS ORDERED: Furosemide 20 MG/2 ML VIAL IVP SCH (09:00)
[2021-01-21] MEDS: MetroNIDAZOLE 500 MG/100 ML 500 MG/100 ML BAG IVPB SCH (09:10)
[2021-01-21] MEDS: Doxycycline 100 MG in 0.9 % Sodium Chloride Mini Bag 100 ML IVPB SCH ×2 (10:00→21:20)
[2021-01-21] MEDS ORDERED: Sennosides/Docusate Sodium TABLET PO PRN (10:16)
[2021-01-21] MEDS ORDERED: Isovue-370 500 ML BOTTLE IVP ONE (10:22)
[2021-01-21 10:57] LABS: ABG Base Excess 6 mEq/L (-2 to 3); ABG HCO3 31 mEq/L (21-27); ABG Oxygen Saturation 92 % (95-98); ABG PCO2 44 mmHg (35-45); ABG PH 7.45 pH Units (7.32-7.45); ABG PO2 61 mmHg (85-104); ABG TCO2 32 mEq/L (20-26)
[2021-01-21] MEDS: Cholecalciferol (D-3) 1,000 UNIT (25MCG) TABLET PO SCH (12:52)
[2021-01-21] MEDS: Levothyroxine 25 MCG TABLET PO SCH (12:52)
[2021-01-21] MEDS: polyethylene glycoL 3350 17 GM POWD.PACK PO SCH (12:53)
[2021-01-21] MEDS: Furosemide 20 MG/2 ML VIAL IVP SCH ×2 (12:53→21:20)
[2021-01-21] MEDS ORDERED: D5% in Water 1,000 ML IVC PRN (17:08)
[2021-01-21] MEDS ORDERED: *HR* Dextrose 50 % in Water (Vial) 50 ML VIAL IVP PRN (17:08)
[2021-01-21] MEDS ORDERED: Dextrose Gel 15 GM/37.5 ML TUBE PO PRN ×2 (17:08)
[2021-01-21] MEDS: Insulin LISPRO 300 UNITS/3 ML VIAL SUBQ SCH (17:22)
[2021-01-21 18:00] LABS: Estimated Average Glucose 128 mg/dl; Hemoglobin A1C 6.1 %
[2021-01-21] MEDS: Budesonide/Formoterol 80/4.5 1 PUFF INH IH SCH (20:41)
[2021-01-21] MEDS: Simethicone 80 MG TAB.CHEW PO SCH (21:21)
[2021-01-21] MEDS: Melatonin 3 MG TABLET PO SCH (21:21)
[2021-01-21] MEDS: Psyllium 1 PACKET POWD.PACK PO SCH (21:22)
[2021-01-21] MEDS: predniSONE 20 MG TABLET PO SCH (22:26)
[2021-01-22 00:50] LABS: Basophils % 0.3 %; Eosinophils # 0.1 K/mcL (0.0-0.6); Eosinophils % 0.9 %; Hemoglobin 8.1 g/dL (12.9-16.9); Immature Granulocytes % 1.5 % (0-4); Lymphocytes # 0.8 K/mcL (0.6-4.6); Lymphocytes % 6.6 %; Mean Corpuscular HGB Conc 31.2 g/dL (31.6-35.5); Mean Corpuscular Hemoglobin 30.2 pg (28.0-33.3); Mean Platelet Volume 9.2 fL (9.4-12.4); Monocytes # 0.7 K/mcL (0.0-1.3); Monocytes % 6.1 %; Neutrophils # 10.1 K/mcL (1.6-8.9); Platelet Count 394 K/mcL (140-400); Red Blood Count 2.68 M/mcL (4.19-5.50); Red Cell Distribution Width 14.7 % (11.5-14.5); Segmented Neutrophils % 84.6 %
[2021-01-22 01:11] LABS: BUN/Creatinine Ratio 29 (6-26); Blood Urea Nitrogen 34 mg/dL (8-23); Calcium 8.9 mg/dL (8.6-10.3); Carbon Dioxide 31 mEq/L (23-29); Chloride 90 mEq/L (98-107); Glucose 110 mg/dL (70-105); Magnesium 2.1 mg/dL (1.6-2.6); Osmolality,Calculated 278 (280-300); Phosphorous 3.9 mg/dL (2.7-4.5); Potassium 4.2 mEq/L (3.5-5.1); Sodium 130 mEq/L (136-145); eGFR For African Americans > 60 (> 60); eGFR For Non-African Americans 60 (> 60)
[2021-01-22] MEDS: *HR* Heparin 5,000 UNIT/ML VIAL SQ SCH ×2 (06:37→17:40)
[2021-01-22] MEDS: Levothyroxine 25 MCG TABLET PO SCH (06:37)
[2021-01-22] MEDS ORDERED: Furosemide 20 MG TABLET PO SCH (08:00)
[2021-01-22] MEDS: Budesonide/Formoterol 80/4.5 1 PUFF INH IH SCH ×2 (08:04→22:52)
[2021-01-22] MEDS: Cholecalciferol (D-3) 1,000 UNIT (25MCG) TABLET PO SCH (08:50)
[2021-01-22] MEDS: predniSONE 20 MG TABLET PO SCH (08:50)
[2021-01-22] MEDS: Cyanocobalamin (B-12) 1,000 MCG TABLET PO SCH (08:51)
[2021-01-22] MEDS: Furosemide 20 MG/2 ML VIAL IVP SCH ×2 (08:51→22:42)
[2021-01-22] MEDS: Doxycycline 100 MG in 0.9 % Sodium Chloride Mini Bag 100 ML IVPB SCH ×2 (08:52→22:39)
[2021-01-22] MEDS: Cefepime HCl 1,000 MG in 0.9 % Sodium Chloride Mini Bag 100 ML IVPB SCH ×2 (08:53→17:27)
[2021-01-22] MEDS: Psyllium 1 PACKET POWD.PACK PO SCH ×2 (08:54→22:40)
[2021-01-22] MEDS: polyethylene glycoL 3350 17 GM POWD.PACK PO SCH (08:54)
[2021-01-22] MEDS: Insulin LISPRO 300 UNITS/3 ML VIAL SUBQ SCH ×3 (09:22→17:18)
[2021-01-22 19:48] LABS: Adenovirus Not Detected (Not Detect); Bordetella Pertussis Not Detected (Not Detect); Chlamydophila pneumoniae Not Detected (Not Detect); Coronavirus 229E Not Detected (Not Detect); Coronavirus HKU1 Not Detected (Not Detect); Coronavirus NL63 Not Detected (Not Detect); Coronavirus OC43 Not Detected (Not Detect); Human Metapneumovirus Not Detected (Not Detect); Human Rhinovirus/Enterovirus Not Detected (Not Detect); Influenza A Subtype 2009 H1 Not Detected (Not Detect); Influenza B Not Detected (Not Detect); Mycoplasma pneumoniae Not Detected (Not Detect); Parainfluenza Virus 1 Not Detected (Not Detect); Parainfluenza Virus 2 Not Detected (Not Detect); Parainfluenza Virus 3 Not Detected (Not Detect); Parainfluenza Virus 4 Not Detected (Not Detect); Respiratory Syncytial Virus Not Detected (Not Detect)
[2021-01-22] MEDS: Melatonin 3 MG TABLET PO SCH (22:40)
[2021-01-22] MEDS: Simethicone 80 MG TAB.CHEW PO SCH (22:42)
[2021-01-23] MEDS: Cefepime HCl 1,000 MG in 0.9 % Sodium Chloride Mini Bag 100 ML IVPB SCH ×3 (00:35→15:24)
[2021-01-23] MEDS ORDERED: Ondansetron 4 MG/2 ML VIAL IVP PRN (05:52)
[2021-01-23] MEDS: *HR* Heparin 5,000 UNIT/ML VIAL SQ SCH ×2 (06:36→17:25)
[2021-01-23] MEDS: Levothyroxine 25 MCG TABLET PO SCH (06:37)
[2021-01-23 06:50] LABS: Basophils % 0.2 %; Eosinophils % 0.2 %; Hematocrit 25.2 % (37.5-50.1); Hemoglobin 7.9 g/dL (12.9-16.9); Immature Granulocytes % 1.5 % (0-4); Lymphocytes # 0.9 K/mcL (0.6-4.6); Lymphocytes % 6.9 %; Mean Corpuscular HGB Conc 31.3 g/dL (31.6-35.5); Mean Corpuscular Hemoglobin 30.3 pg (28.0-33.3); Mean Corpuscular Volume 96.6 fL (83.0-100.0); Mean Platelet Volume 9.2 fL (9.4-12.4); Monocytes # 0.8 K/mcL (0.0-1.3); Neutrophils # 11.2 K/mcL (1.6-8.9); Platelet Count 383 K/mcL (140-400); Red Blood Count 2.61 M/mcL (4.19-5.50); Red Cell Distribution Width 14.7 % (11.5-14.5); Segmented Neutrophils % 85.2 %; White Blood Count 13.1 K/mcL (4.3-11.1)
[2021-01-23 07:11] LABS: BUN/Creatinine Ratio 29 (6-26); Blood Urea Nitrogen 39 mg/dL (8-23); Calcium 9.2 mg/dL (8.6-10.3); Carbon Dioxide 32 mEq/L (23-29); Chloride 93 mEq/L (98-107); Glucose 114 mg/dL (70-105); Magnesium 2.2 mg/dL (1.6-2.6); Osmolality,Calculated 284 (280-300); Phosphorous 3.2 mg/dL (2.7-4.5); Potassium 4.2 mEq/L (3.5-5.1); Sodium 132 mEq/L (136-145); eGFR For African Americans > 60 (> 60); eGFR For Non-African Americans 51 (> 60)
[2021-01-23] MEDS: Budesonide/Formoterol 80/4.5 1 PUFF INH IH SCH ×2 (07:40→19:52)
[2021-01-23] MEDS: Insulin LISPRO 300 UNITS/3 ML VIAL SUBQ SCH ×3 (08:12→17:25)
[2021-01-23] MEDS: Psyllium 1 PACKET POWD.PACK PO SCH ×2 (09:10→21:43)
[2021-01-23] MEDS: polyethylene glycoL 3350 17 GM POWD.PACK PO SCH (09:10)
[2021-01-23] MEDS: predniSONE 20 MG TABLET PO SCH (09:11)
[2021-01-23] MEDS: Cholecalciferol (D-3) 1,000 UNIT (25MCG) TABLET PO SCH (09:11)
[2021-01-23] MEDS: Cyanocobalamin (B-12) 1,000 MCG TABLET PO SCH (09:44)
[2021-01-23] MEDS: Doxycycline 100 MG in 0.9 % Sodium Chloride Mini Bag 100 ML IVPB SCH ×2 (10:51→21:42)
[2021-01-23] MEDS ORDERED: *HR* Metoprolol 5 MG/5 ML VIAL IVP PRN (11:48)
[2021-01-23] MEDS: carvediloL 6.25 MG TABLET PO SCH ×2 (13:10→15:24)
[2021-01-23 16:35] LABS: A.galactomannan Ag Index 0.03
[2021-01-23] MEDS: Melatonin 3 MG TABLET PO SCH (21:43)
[2021-01-23] MEDS: Simethicone 80 MG TAB.CHEW PO SCH (21:43)
[2021-01-24] MEDS: Cefepime HCl 1,000 MG in 0.9 % Sodium Chloride Mini Bag 100 ML IVPB SCH ×2 (00:13→09:49)
[2021-01-24 01:22] LABS: Basophils % 0.1 %; Eosinophils % 0.1 %; Hematocrit 23.9 % (37.5-50.1); Hemoglobin 7.3 g/dL (12.9-16.9); Immature Granulocytes % 1.5 % (0-4); Lymphocytes # 0.9 K/mcL (0.6-4.6); Lymphocytes % 7.1 %; Mean Corpuscular HGB Conc 30.5 g/dL (31.6-35.5); Mean Corpuscular Hemoglobin 29.4 pg (28.0-33.3); Mean Corpuscular Volume 96.4 fL (83.0-100.0); Mean Platelet Volume 9.1 fL (9.4-12.4); Monocytes # 0.6 K/mcL (0.0-1.3); Neutrophils # 10.3 K/mcL (1.6-8.9); Platelet Count 379 K/mcL (140-400); Red Blood Count 2.48 M/mcL (4.19-5.50); Red Cell Distribution Width 14.8 % (11.5-14.5); Segmented Neutrophils % 86.2 %
[2021-01-24 01:42] LABS: BUN/Creatinine Ratio 33 (6-26); Blood Urea Nitrogen 39 mg/dL (8-23); Calcium 8.9 mg/dL (8.6-10.3); Carbon Dioxide 30 mEq/L (23-29); Chloride 96 mEq/L (98-107); Glucose 114 mg/dL (70-105); Magnesium 2.1 mg/dL (1.6-2.6); Osmolality,Calculated 284 (280-300); Phosphorous 3.1 mg/dL (2.7-4.5); Potassium 4.5 mEq/L (3.5-5.1); Sodium 132 mEq/L (136-145); eGFR For African Americans > 60 (> 60); eGFR For Non-African Americans 58 (> 60)
[2021-01-24] MEDS: *HR* Heparin 5,000 UNIT/ML VIAL SQ SCH ×2 (06:36→17:05)
[2021-01-24] MEDS: Levothyroxine 25 MCG TABLET PO SCH (06:36)
[2021-01-24] MEDS: Budesonide/Formoterol 80/4.5 1 PUFF INH IH SCH ×2 (07:33→20:22)
[2021-01-24] MEDS: Insulin LISPRO 300 UNITS/3 ML VIAL SUBQ SCH ×3 (09:19→17:06)
[2021-01-24] MEDS: Cholecalciferol (D-3) 1,000 UNIT (25MCG) TABLET PO SCH (09:48)
[2021-01-24] MEDS: Psyllium 1 PACKET POWD.PACK PO SCH ×2 (09:48→21:07)
[2021-01-24] MEDS: predniSONE 20 MG TABLET PO SCH (09:48)
[2021-01-24] MEDS: Cyanocobalamin (B-12) 1,000 MCG TABLET PO SCH (09:48)
[2021-01-24] MEDS: polyethylene glycoL 3350 17 GM POWD.PACK PO SCH (09:48)
[2021-01-24] MEDS: carvediloL 6.25 MG TABLET PO SCH ×2 (09:49→17:05)
[2021-01-24 10:03] LABS: ANA IgG by ELISA NONE DETECTED (None Detected)
[2021-01-24 10:23] LABS: Serine Protease-3 Antibody 2 AU/mL (0-19)
[2021-01-24] MEDS: Doxycycline 100 MG in 0.9 % Sodium Chloride Mini Bag 100 ML IVPB SCH (10:40)
[2021-01-24] MEDS ORDERED: 0.9 % Sodium Chloride 500 ML ONE (12:32)
[2021-01-24] MEDS: Simethicone 80 MG TAB.CHEW PO SCH (21:07)
[2021-01-24] MEDS: Melatonin 3 MG TABLET PO SCH (21:07)
[2021-01-25 05:06] LABS: Basophils % 0.2 %; Eosinophils # 0.1 K/mcL (0.0-0.6); Eosinophils % 0.6 %; Hematocrit 26.4 % (37.5-50.1); Hemoglobin 8.2 g/dL (12.9-16.9); Immature Granulocytes % 1.8 % (0-4); Lymphocytes # 1.2 K/mcL (0.6-4.6); Mean Corpuscular HGB Conc 31.1 g/dL (31.6-35.5); Mean Corpuscular Hemoglobin 29.5 pg (28.0-33.3); Monocytes # 0.6 K/mcL (0.0-1.3); Monocytes % 5.7 %; Neutrophils # 8.9 K/mcL (1.6-8.9); Platelet Count 325 K/mcL (140-400); Red Blood Count 2.78 M/mcL (4.19-5.50); Red Cell Distribution Width 14.9 % (11.5-14.5); Segmented Neutrophils % 80.7 %
[2021-01-25 05:31] LABS: BUN/Creatinine Ratio 33 (6-26); Blood Urea Nitrogen 36 mg/dL (8-23); Calcium 8.9 mg/dL (8.6-10.3); Carbon Dioxide 30 mEq/L (23-29); Chloride 94 mEq/L (98-107); Glucose 90 mg/dL (70-105); Magnesium 2.1 mg/dL (1.6-2.6); Osmolality,Calculated 278 (280-300); Phosphorous 2.8 mg/dL (2.7-4.5); Potassium 4.4 mEq/L (3.5-5.1); Sodium 130 mEq/L (136-145); eGFR For African Americans > 60 (> 60); eGFR For Non-African Americans > 60 (> 60)
[2021-01-25] MEDS: *HR* Heparin 5,000 UNIT/ML VIAL SQ SCH (06:02)
[2021-01-25] MEDS: Levothyroxine 25 MCG TABLET PO SCH ×2 (06:02→15:08)
[2021-01-25] MEDS: Budesonide/Formoterol 80/4.5 1 PUFF INH IH SCH ×2 (07:42→20:20)
[2021-01-25] MEDS: Cholecalciferol (D-3) 1,000 UNIT (25MCG) TABLET PO SCH (08:59)
[2021-01-25] MEDS: Cyanocobalamin (B-12) 1,000 MCG TABLET PO SCH (08:59)
[2021-01-25] MEDS: predniSONE 20 MG TABLET PO SCH (09:00)
[2021-01-25] MEDS: carvediloL 6.25 MG TABLET PO SCH ×2 (09:00→17:29)
[2021-01-25] MEDS: polyethylene glycoL 3350 17 GM POWD.PACK PO SCH (09:00)
[2021-01-25] MEDS: Psyllium 1 PACKET POWD.PACK PO SCH ×2 (09:00→20:56)
[2021-01-25] MEDS: Insulin LISPRO 300 UNITS/3 ML VIAL SUBQ SCH ×3 (09:03→17:30)
[2021-01-25] MEDS: Furosemide 20 MG TABLET PO SCH (15:08)
[2021-01-25] MEDS: Simethicone 80 MG TAB.CHEW PO SCH (20:53)
[2021-01-25] MEDS: Melatonin 3 MG TABLET PO SCH (20:54)
[2021-01-26 01:02] LABS: Hematocrit 26.9 % (37.5-50.1); Hemoglobin 8.5 g/dL (12.9-16.9); Mean Corpuscular HGB Conc 31.6 g/dL (31.6-35.5); Mean Corpuscular Hemoglobin 29.8 pg (28.0-33.3); Mean Corpuscular Volume 94.4 fL (83.0-100.0); Platelet Count 343 K/mcL (140-400); Red Blood Count 2.85 M/mcL (4.19-5.50); Red Cell Distribution Width 14.6 % (11.5-14.5); White Blood Count 12.8 K/mcL (4.3-11.1)
[2021-01-26 01:19] LABS: BUN/Creatinine Ratio 30 (6-26); Blood Urea Nitrogen 37 mg/dL (8-23); Calcium 8.9 mg/dL (8.6-10.3); Carbon Dioxide 30 mEq/L (23-29); Chloride 91 mEq/L (98-107); Glucose 187 mg/dL (70-105); Osmolality,Calculated 280 (280-300); Potassium 4.5 mEq/L (3.5-5.1); Sodium 128 mEq/L (136-145); eGFR For African Americans > 60 (> 60); eGFR For Non-African Americans 55 (> 60)
[2021-01-26] MEDS: Levothyroxine 25 MCG TABLET PO SCH (05:17)
[2021-01-26] MEDS: Budesonide/Formoterol 80/4.5 1 PUFF INH IH SCH (07:37)
[2021-01-26] MEDS: Insulin LISPRO 300 UNITS/3 ML VIAL SUBQ SCH ×2 (07:45→12:03)
[2021-01-26] MEDS: predniSONE 20 MG TABLET PO SCH (08:10)
[2021-01-26] MEDS: Cholecalciferol (D-3) 1,000 UNIT (25MCG) TABLET PO SCH (08:10)
[2021-01-26] MEDS: Furosemide 20 MG TABLET PO SCH (08:11)
[2021-01-26] MEDS: Cyanocobalamin (B-12) 1,000 MCG TABLET PO SCH (08:11)
[2021-01-26] MEDS: Psyllium 1 PACKET POWD.PACK PO SCH (08:12)
[2021-01-26] MEDS: polyethylene glycoL 3350 17 GM POWD.PACK PO SCH (08:12)
[2021-01-26] MEDS ORDERED: *HR* Rivaroxaban 15 MG TABLET PO SCH (09:00)
[2021-01-26] MEDS ORDERED: Metoprolol XL (24 HR) Succ 25 MG TAB.ER.24H PO SCH (09:00)
[2021-01-26 10:31] VITALS: BP 91/54
[2021-01-27 09:14] LABS: Histoplasma spp.Ab by ID NONE DETECTED (None Detected)
== END 2021-01-26 16:21 | disposition home health service (06) | DRG 196 ==
LOC: 2ANU → SUATTDRO 19:41
PROVIDERS: ADMIT Family Medicine; ATTEND Internal Medicine

== ENCOUNTER 2022-05-28 03:20 | Inpatient (IN) ==
[2022-05-28] MEDS ORDERED: Naloxone 0.4 MG/ML INJ IVP PRN (05:30)
[2022-05-28] MEDS ORDERED: Ondansetron ODT 4 MG TAB.RAPDIS SL PRN (05:30)
[2022-05-28] MEDS ORDERED: Melatonin 3 MG TABLET PO PRN (05:30)
[2022-05-28 06:25] LABS: Basophils # 0.1 K/mcL (0.0-0.2); Basophils % 0.7 %; Eosinophils # 0.1 K/mcL (0.0-0.6); Eosinophils % 1.3 %; Hemoglobin 9.1 g/dL (12.9-16.9); Immature Granulocytes % 0.4 % (0-4); Lymphocytes # 0.9 K/mcL (0.6-4.6); Lymphocytes % 11.2 %; Mean Corpuscular HGB Conc 30.3 g/dL (31.6-35.5); Mean Corpuscular Hemoglobin 31.9 pg (28.0-33.3); Mean Corpuscular Volume 105.3 fL (83.0-100.0); Mean Platelet Volume 10.3 fL (9.4-12.4); Monocytes # 0.6 K/mcL (0.0-1.3); Monocytes % 7.5 %; Platelet Count 181 K/mcL (140-400); Red Blood Count 2.85 M/mcL (4.19-5.50); Segmented Neutrophils % 78.9 %; White Blood Count 7.6 K/mcL (4.3-11.1)
[2022-05-28 06:31] LABS: INR 1.8; Prothrombin Time 19.7 Seconds (9.4-12.1)
[2022-05-28 06:32] LABS: Alanine Aminotransferase 15 Units/L (7-52); Albumin 3.8 g/dL (3.5-5.7); Albumin/Globulin Ratio 1.6 (1.1-2.2); Alkaline Phosphatase 76 Units/L (34-104); Aspartate Amino Transferase 16 Units/L (13-39); BUN/Creatinine Ratio 21 (6-26); Bilirubin,Total 0.5 mg/dL (0.3-1.0); Blood Urea Nitrogen 27 mg/dL (8-23); Calcium 9.1 mg/dL (8.6-10.3); Carbon Dioxide 25 mEq/L (23-29); Chloride 102 mEq/L (98-107); Globulin 2.4 g/dL (2.4-3.5); Glucose 135 mg/dL (70-105); Magnesium 2.1 mg/dL (1.6-2.6); Osmolality,Calculated 293 (280-300); Phosphorous 3.5 mg/dL (2.7-4.5); Potassium 3.6 mEq/L (3.5-5.1); Sodium 138 mEq/L (136-145); Total Protein 6.2 g/dL (6.4-8.9); eGFR For African Americans > 60 (> 60); eGFR For Non-African Americans 54 (> 60)
[2022-05-28 07:41] LABS: Folate > 22.3 ng/mL (3.0-16.0)
[2022-05-28 08:42] LABS: Vitamin B12 718 pg/mL (250-1100)
[2022-05-28] MEDS: *HR* Rivaroxaban 15 MG TABLET PO SCH (08:44)
[2022-05-28] MEDS ORDERED: Furosemide 40 MG TABLET PO SCH (09:00)
[2022-05-28] MEDS ORDERED: levoFLOXacin 750 MG/150 ML 750 MG/150 ML BAG IVPB SCH (09:00)
[2022-05-28] MEDS: Budesonide/Formoterol 80/4.5 1 PUFF INH IH SCH ×2 (09:01→20:47)
[2022-05-28] MEDS: Metoprolol XL (24 HR) Succ 25 MG TAB.ER.24H PO SCH (11:42)
[2022-05-28] MEDS ORDERED: Furosemide 20 MG/2 ML VIAL IVP SCH (17:00)
[2022-05-28 19:42] LABS: Procalcitonin 0.02 ng/mL (0.00-0.15)
[2022-05-28] MEDS: Melatonin 3 MG TABLET PO SCH (21:11)
[2022-05-29] MEDS: Acetaminophen 325 MG TABLET PO PRN ×2 (00:26→20:37)
[2022-05-29 06:40] LABS: Basophils % 0.2 %; Eosinophils # 0.1 K/mcL (0.0-0.6); Eosinophils % 1.6 %; Hematocrit 28.3 % (37.5-50.1); Hemoglobin 8.8 g/dL (12.9-16.9); Immature Granulocytes % 0.4 % (0-4); Lymphocytes # 0.7 K/mcL (0.6-4.6); Lymphocytes % 12.7 %; Mean Corpuscular HGB Conc 31.1 g/dL (31.6-35.5); Mean Corpuscular Hemoglobin 31.7 pg (28.0-33.3); Mean Corpuscular Volume 101.8 fL (83.0-100.0); Mean Platelet Volume 10.1 fL (9.4-12.4); Monocytes # 0.4 K/mcL (0.0-1.3); Monocytes % 7.4 %; Neutrophils # 4.4 K/mcL (1.6-8.9); Platelet Count 143 K/mcL (140-400); Red Blood Count 2.78 M/mcL (4.19-5.50); Red Cell Distribution Width 14.9 % (11.5-14.5); Segmented Neutrophils % 77.7 %; White Blood Count 5.7 K/mcL (4.3-11.1)
[2022-05-29 06:59] LABS: BUN/Creatinine Ratio 22 (6-26); Blood Urea Nitrogen 27 mg/dL (8-23); Carbon Dioxide 29 mEq/L (23-29); Chloride 102 mEq/L (98-107); Glucose 98 mg/dL (70-105); Osmolality,Calculated 295 (280-300); Phosphorous 3.5 mg/dL (2.7-4.5); Potassium 3.4 mEq/L (3.5-5.1); Sodium 140 mEq/L (136-145); eGFR For African Americans > 60 (> 60); eGFR For Non-African Americans 55 (> 60)
[2022-05-29] MEDS: Furosemide 20 MG/2 ML VIAL IVP SCH ×2 (08:16→16:51)
[2022-05-29] MEDS: Metoprolol XL (24 HR) Succ 25 MG TAB.ER.24H PO SCH (08:17)
[2022-05-29] MEDS: Ascorbic Acid 500 MG TABLET PO SCH (08:17)
[2022-05-29] MEDS: *HR* Rivaroxaban 15 MG TABLET PO SCH (08:17)
[2022-05-29] MEDS: Cyanocobalamin (B-12) 1,000 MCG TABLET PO SCH (08:17)
[2022-05-29] MEDS: Budesonide/Formoterol 80/4.5 1 PUFF INH IH SCH ×2 (10:29→22:38)
[2022-05-29] MEDS: Melatonin 3 MG TABLET PO SCH (20:38)
[2022-05-30 02:06] LABS: BUN/Creatinine Ratio 22 (6-26); Blood Urea Nitrogen 27 mg/dL (8-23); Calcium 9.1 mg/dL (8.6-10.3); Carbon Dioxide 28 mEq/L (23-29); Chloride 100 mEq/L (98-107); Glucose 116 mg/dL (70-105); Magnesium 2.1 mg/dL (1.6-2.6); Osmolality,Calculated 290 (280-300); Phosphorous 3.5 mg/dL (2.7-4.5); Potassium 3.7 mEq/L (3.5-5.1); Sodium 137 mEq/L (136-145); eGFR For African Americans > 60 (> 60); eGFR For Non-African Americans 55 (> 60)
[2022-05-30] MEDS: Acetaminophen 325 MG TABLET PO PRN ×2 (05:03→05:29)
[2022-05-30] MEDS: Budesonide/Formoterol 80/4.5 1 PUFF INH IH SCH ×2 (07:33→22:58)
[2022-05-30] MEDS: Metoprolol XL (24 HR) Succ 25 MG TAB.ER.24H PO SCH (08:41)
[2022-05-30] MEDS: Cyanocobalamin (B-12) 1,000 MCG TABLET PO SCH (08:42)
[2022-05-30] MEDS: *HR* Rivaroxaban 15 MG TABLET PO SCH (08:42)
[2022-05-30] MEDS: Ascorbic Acid 500 MG TABLET PO SCH (08:42)
[2022-05-30] MEDS: Furosemide 20 MG TABLET PO SCH ×2 (08:42→16:33)
[2022-05-30] MEDS ORDERED: levoFLOXacin 750 MG/150 ML 750 MG/150 ML BAG IVPB SCH (09:00)
[2022-05-30] MEDS: Melatonin 3 MG TABLET PO SCH (21:01)
[2022-05-31] MEDS: Budesonide/Formoterol 80/4.5 1 PUFF INH IH SCH ×2 (07:22→20:19)
[2022-05-31] MEDS: Ascorbic Acid 500 MG TABLET PO SCH (08:12)
[2022-05-31] MEDS: *HR* Rivaroxaban 15 MG TABLET PO SCH (08:12)
[2022-05-31] MEDS: Furosemide 20 MG TABLET PO SCH ×2 (08:12→16:40)
[2022-05-31] MEDS: Cyanocobalamin (B-12) 1,000 MCG TABLET PO SCH (08:12)
[2022-05-31] MEDS: Metoprolol XL (24 HR) Succ 25 MG TAB.ER.24H PO SCH (08:13)
[2022-05-31] MEDS: Melatonin 3 MG TABLET PO SCH (20:55)
[2022-06-01] MEDS ORDERED: *HR* Propofol 200 MG/20 ML VIAL IVP ONE (06:33)
[2022-06-01] MEDS ORDERED: Lidocaine -MPF 2% 5 ML VIAL ONE (06:33)
[2022-06-01] MEDS ORDERED: *HR* Succinylcholine 200 MG/10 ML VIAL IVP ONE (06:33)
[2022-06-01] MEDS ORDERED: *HR* Rocuronium Bromide 50 MG/5 ML VIAL ONE ×2 (06:33→08:41)
[2022-06-01] MEDS ORDERED: *HR* FentaNYL (PF) 100 MCG/2 ML VIAL ONE (06:33)
[2022-06-01] MEDS ORDERED: Ondansetron 4 MG/2 ML VIAL ONE (06:33)
[2022-06-01] MEDS ORDERED: Heparin 1,000 UNITS/500 mL 500 ML ONE (07:44)
[2022-06-01] MEDS ORDERED: Ketamine HCL *QUVA* 50mg (1mL) SYRINGE ONE (07:44)
[2022-06-01] MEDS ORDERED: *HR* Phenylephrine 10 MG/ML VIAL ONE (07:53)
[2022-06-01] MEDS ORDERED: *HR* Norepinephrine 4 MG/4 ML VIAL IVC ONE (08:05)
[2022-06-01] MEDS ORDERED: Clindamycin 900 MG/50 ML 900 MG/50 ML IV.SOLN IVPB ONE (08:22)
[2022-06-01] MEDS ORDERED: Sugammadex Sodium 200 MG/2 ML VIAL IV ONE (09:11)
[2022-06-01] MEDS ORDERED: *HR* Metoprolol 5 MG/5 ML VIAL IVP ONE (09:35)
[2022-06-01] MEDS ORDERED: *HR* Nalbuphine 10 MG/ML AMPUL ONE ×2 (09:38→09:39)
[2022-06-01] MEDS: Budesonide/Formoterol 80/4.5 1 PUFF INH IH SCH ×2 (10:00→20:07)
[2022-06-01] MEDS ORDERED: Ondansetron ODT 4 MG TAB.RAPDIS SL PRN (10:47)
[2022-06-01] MEDS ORDERED: Naloxone 0.4 MG/ML INJ IVP PRN (10:47)
[2022-06-01] MEDS ORDERED: Melatonin 3 MG TABLET PO PRN (10:47)
[2022-06-01] MEDS: 0.9 % Sodium Chloride 1,000 ML IVC SCH (11:22)
[2022-06-01 15:28] LABS: Hematocrit 31.1 % (37.5-50.1); Hemoglobin 9.5 g/dL (12.9-16.9)
[2022-06-01] MEDS ORDERED: Furosemide 20 MG TABLET PO SCH ×2 (17:00→17:20)
[2022-06-01] MEDS: Melatonin 3 MG TABLET PO SCH (21:31)
[2022-06-01] MEDS: Acetaminophen 325 MG TABLET PO PRN (22:02)
[2022-06-02 03:04] LABS: Basophils % 0.1 %; Eosinophils % 0.2 %; Hematocrit 28.9 % (37.5-50.1); Immature Granulocytes % 0.3 % (0-4); Lymphocytes # 0.6 K/mcL (0.6-4.6); Lymphocytes % 5.8 %; Mean Corpuscular HGB Conc 31.1 g/dL (31.6-35.5); Mean Corpuscular Hemoglobin 31.9 pg (28.0-33.3); Mean Corpuscular Volume 102.5 fL (83.0-100.0); Mean Platelet Volume 9.9 fL (9.4-12.4); Monocytes % 7.7 %; Neutrophils # 8.3 K/mcL (1.6-8.9); Platelet Count 203 K/mcL (140-400); Red Blood Count 2.82 M/mcL (4.19-5.50); Red Cell Distribution Width 14.6 % (11.5-14.5); Segmented Neutrophils % 85.9 %
[2022-06-02 03:35] LABS: BUN/Creatinine Ratio 27 (6-26); Blood Urea Nitrogen 33 mg/dL (8-23); Calcium 8.6 mg/dL (8.6-10.3); Carbon Dioxide 31 mEq/L (23-29); Chloride 102 mEq/L (98-107); Glucose 129 mg/dL (70-105); Magnesium 2.1 mg/dL (1.6-2.6); Osmolality,Calculated 293 (280-300); Phosphorous 3.8 mg/dL (2.7-4.5); Potassium 4.8 mEq/L (3.5-5.1); Sodium 137 mEq/L (136-145); eGFR For African Americans > 60 (> 60); eGFR For Non-African Americans 57 (> 60)
[2022-06-02 03:48] LABS: Monocytes # 0.8 K/mcL (0.0-1.3); White Blood Count 9.7 K/mcL (4.3-11.1)
[2022-06-02] MEDS: Budesonide/Formoterol 80/4.5 1 PUFF INH IH SCH ×2 (07:55→20:17)
[2022-06-02] MEDS: Cyanocobalamin (B-12) 1,000 MCG TABLET PO SCH (07:59)
[2022-06-02] MEDS: Metoprolol XL (24 HR) Succ 25 MG TAB.ER.24H PO SCH (07:59)
[2022-06-02] MEDS: Ascorbic Acid 500 MG TABLET PO SCH (07:59)
[2022-06-02] MEDS: 0.9 % Sodium Chloride 1,000 ML IVC SCH (08:03)
[2022-06-02] MEDS ORDERED: *HR* OxyCODONE/APAP 5/325 TABLET PO PRN (08:35)
[2022-06-02] MEDS ORDERED: Metoprolol XL (24 HR) Succ 25 MG TAB.ER.24H PO SCH (09:00)
[2022-06-02] MEDS: Acetaminophen 325 MG TABLET PO PRN ×2 (13:29→21:03)
[2022-06-02] MEDS: Melatonin 3 MG TABLET PO SCH (21:03)
[2022-06-03] MEDS: Budesonide/Formoterol 80/4.5 1 PUFF INH IH SCH ×2 (07:29→20:45)
[2022-06-03] MEDS: Cyanocobalamin (B-12) 1,000 MCG TABLET PO SCH (08:12)
[2022-06-03] MEDS: Metoprolol XL (24 HR) Succ 25 MG TAB.ER.24H PO SCH (08:13)
[2022-06-03] MEDS: Ascorbic Acid 500 MG TABLET PO SCH (08:13)
[2022-06-03] MEDS: Acetaminophen 325 MG TABLET PO PRN ×2 (10:10→16:55)
[2022-06-03] MEDS: Melatonin 3 MG TABLET PO SCH (21:23)
[2022-06-04] MEDS: Acetaminophen 325 MG TABLET PO PRN ×2 (06:00→21:20)
[2022-06-04] MEDS: Budesonide/Formoterol 80/4.5 1 PUFF INH IH SCH ×2 (07:37→20:57)
[2022-06-04] MEDS: Cyanocobalamin (B-12) 1,000 MCG TABLET PO SCH (08:26)
[2022-06-04] MEDS: Ascorbic Acid 500 MG TABLET PO SCH (08:26)
[2022-06-04] MEDS: Metoprolol XL (24 HR) Succ 25 MG TAB.ER.24H PO SCH (08:27)
[2022-06-04 08:46] LABS: Hematocrit 27.7 % (37.5-50.1); Hemoglobin 8.8 g/dL (12.9-16.9)
[2022-06-04 09:06] LABS: BUN/Creatinine Ratio 27 (6-26); Blood Urea Nitrogen 31 mg/dL (8-23); Calcium 9.2 mg/dL (8.6-10.3); Carbon Dioxide 28 mEq/L (23-29); Chloride 100 mEq/L (98-107); Glucose 99 mg/dL (70-105); Osmolality,Calculated 283 (280-300); Potassium 4.4 mEq/L (3.5-5.1); Sodium 133 mEq/L (136-145); eGFR For African Americans > 60 (> 60); eGFR For Non-African Americans > 60 (> 60)
[2022-06-04 10:07] LABS: Magnesium 2.2 mg/dL (1.6-2.6)
[2022-06-04] MEDS: Melatonin 3 MG TABLET PO SCH (21:16)
[2022-06-05] MEDS ORDERED: polyethylene glycoL 3350 17 GM POWD.PACK PO PRN (03:18)
[2022-06-05] MEDS: Budesonide/Formoterol 80/4.5 1 PUFF INH IH SCH (07:43)
[2022-06-05] MEDS: Cyanocobalamin (B-12) 1,000 MCG TABLET PO SCH (08:05)
[2022-06-05] MEDS: Ascorbic Acid 500 MG TABLET PO SCH (08:05)
[2022-06-05] MEDS: Metoprolol XL (24 HR) Succ 25 MG TAB.ER.24H PO SCH (09:00)
[2022-06-05 11:16] VITALS: BP 106/61; PULSE 95; TEMP 99.3; O2SAT 95
== END 2022-06-05 15:15 | disposition home or self-care (01) | DRG 164 ==
LOC: 2NENU → SUATTDRO 14:26 → 2NNU 06-01 10:41
PROVIDERS: ADMIT Internal Medicine; ATTEND Internal Medicine

== ENCOUNTER 2022-07-10 01:42 | Inpatient (IN) ==
[2022-07-10] MEDS ORDERED: Ondansetron 4 MG/2 ML VIAL IVP PRN (02:16)
[2022-07-10] MEDS ORDERED: Melatonin 3 MG TABLET PO PRN (02:16)
[2022-07-10] MEDS ORDERED: Naloxone 0.4 MG/ML INJ IVP PRN (02:16)
[2022-07-10 03:40] LABS: Basophils % 0.5 %; Eosinophils # 0.1 K/mcL (0.0-0.6); Eosinophils % 1.3 %; Hemoglobin 7.6 g/dL (12.9-16.9); Immature Granulocytes % 0.3 % (0-4); Lymphocytes # 0.8 K/mcL (0.6-4.6); Lymphocytes % 12.3 %; Mean Corpuscular HGB Conc 29.2 g/dL (31.6-35.5); Mean Corpuscular Hemoglobin 29.3 pg (28.0-33.3); Mean Corpuscular Volume 100.4 fL (83.0-100.0); Mean Platelet Volume 10.1 fL (9.4-12.4); Monocytes # 0.6 K/mcL (0.0-1.3); Monocytes % 10.1 %; Neutrophils # 4.8 K/mcL (1.6-8.9); Platelet Count 208 K/mcL (140-400); Red Blood Count 2.59 M/mcL (4.19-5.50); Red Cell Distribution Width 15.3 % (11.5-14.5); Segmented Neutrophils % 75.5 %; White Blood Count 6.3 K/mcL (4.3-11.1)
[2022-07-10] MEDS ORDERED: 0.9 % Sodium Chloride 1,000 ML IVC SCH (03:45)
[2022-07-10 04:02] LABS: Calcium 8.7 mg/dL (8.6-10.3); Magnesium 1.9 mg/dL (1.6-2.6); Potassium 3.9 mEq/L (3.5-5.1)
[2022-07-10] MEDS ORDERED: Acetaminophen 325 MG TABLET PO PRN (04:35)
[2022-07-10] MEDS: Pantoprazole 40 MG VIAL IVP SCH ×2 (05:11→17:21)
[2022-07-10 06:33] LABS: Folate 21.9 ng/mL (3.0-16.0)
[2022-07-10] MEDS: MetroNIDAZOLE 500 MG/100 ML 500 MG/100 ML BAG IVPB SCH ×2 (07:57→15:34)
[2022-07-10] MEDS: cefTRIAXone 2,000 MG in 0.9 % Sodium Chloride 20 ML IVP SCH (09:18)
[2022-07-10] MEDS: 0.9 % Sodium Chloride 1,000 ML IVC SCH (12:25)
[2022-07-10 12:56] LABS: % Iron Saturation 5 % (20-55); Iron 21 mcg/dL (65-175); Transferrin 281 mg/dL (203-362)
[2022-07-10 12:58] LABS: Ferritin 62 ng/mL (20-250)
[2022-07-10] MEDS ORDERED: Simethicone 80 MG TAB.CHEW PO PRN (13:58)
[2022-07-10] MEDS ORDERED: Ipratropium/Albuterol Neb 3 ML IH PRN (14:04)
[2022-07-10 18:33] LABS: Hemoglobin 8.1 g/dL (12.9-16.9)
[2022-07-10] MEDS: Metoprolol XL (24 HR) Succ 25 MG TAB.ER.24H PO SCH (20:33)
[2022-07-10] MEDS: Melatonin 3 MG TABLET PO SCH (22:16)
[2022-07-10] MEDS: Furosemide 20 MG/2 ML VIAL IVP SCH (22:16)
[2022-07-11] MEDS: MetroNIDAZOLE 500 MG/100 ML 500 MG/100 ML BAG IVPB SCH ×3 (01:03→18:02)
[2022-07-11 05:56] LABS: Basophils % 0.6 %; Eosinophils # 0.1 K/mcL (0.0-0.6); Eosinophils % 1.5 %; Hematocrit 26.3 % (37.5-50.1); Hemoglobin 7.7 g/dL (12.9-16.9); Immature Granulocytes % 0.4 % (0-4); Lymphocytes # 0.5 K/mcL (0.6-4.6); Lymphocytes % 7.1 %; Mean Corpuscular HGB Conc 29.3 g/dL (31.6-35.5); Mean Corpuscular Hemoglobin 29.7 pg (28.0-33.3); Mean Corpuscular Volume 101.5 fL (83.0-100.0); Mean Platelet Volume 10.5 fL (9.4-12.4); Monocytes # 0.6 K/mcL (0.0-1.3); Monocytes % 8.2 %; Neutrophils # 5.7 K/mcL (1.6-8.9); Platelet Count 209 K/mcL (140-400); Red Blood Count 2.59 M/mcL (4.19-5.50); Red Cell Distribution Width 15.5 % (11.5-14.5); Segmented Neutrophils % 82.2 %; White Blood Count 6.9 K/mcL (4.3-11.1)
[2022-07-11 06:17] LABS: Albumin 3.1 g/dL (3.5-5.7); Albumin/Globulin Ratio 1.1 (1.1-2.2); Bilirubin,Total 0.7 mg/dL (0.3-1.0); Calcium 8.9 mg/dL (8.6-10.3); Globulin 2.8 g/dL (2.4-3.5); Phosphorous 4.5 mg/dL (2.7-4.5); Potassium 3.9 mEq/L (3.5-5.1); Total Protein 5.9 g/dL (6.4-8.9)
[2022-07-11] MEDS: Pantoprazole 40 MG VIAL IVP SCH ×2 (06:23→18:00)
[2022-07-11] MEDS ORDERED: Dextrose Gel 15 GM/37.5 ML TUBE PO PRN ×2 (08:02)
[2022-07-11] MEDS ORDERED: *HR* Dextrose 50 % in Water (Syg) 50 ML SYRINGE IVP PRN (08:02)
[2022-07-11] MEDS ORDERED: D5% in Water 1,000 ML IVC PRN (08:02)
[2022-07-11] MEDS ORDERED: Bisacodyl 10 MG RECTAL SUPPOSITORY RC ONE (09:27)
[2022-07-11] MEDS: Furosemide 20 MG/2 ML VIAL IVP SCH ×2 (09:42→22:00)
[2022-07-11] MEDS: cefTRIAXone 2,000 MG in 0.9 % Sodium Chloride 20 ML IVP SCH (09:42)
[2022-07-11] MEDS: Metoprolol XL (24 HR) Succ 25 MG TAB.ER.24H PO SCH ×2 (09:43→21:57)
[2022-07-11] MEDS ORDERED: Lidocaine HCL 4 ML Topical Solution (Laryng-O-Jet Kit Sterile Pak) TP ONE (10:29)
[2022-07-11] MEDS ORDERED: *HR* Propofol 200 MG/20 ML VIAL IVP ONE (10:29)
[2022-07-11] MEDS ORDERED: *HR* Rocuronium Bromide 50 MG/5 ML VIAL ONE (10:29)
[2022-07-11] MEDS ORDERED: Lidocaine -MPF 2% 5 ML VIAL ONE (10:29)
[2022-07-11] MEDS ORDERED: Iopamidol - 300 50 ML VIAL ONE (10:47)
[2022-07-11] MEDS ORDERED: 0.9 % Sodium Chloride 250 ML ONE (15:09)
[2022-07-11] MEDS ORDERED: *HR* Rivaroxaban 15 MG TABLET PO SCH (17:00)
[2022-07-11] MEDS: 0.9 % Sodium Chloride 1,000 ML IVC SCH (18:01)
[2022-07-11] MEDS: Melatonin 3 MG TABLET PO SCH (21:56)
[2022-07-11] MEDS: Budesonide/Formoterol 80/4.5 1 PUFF INH IH SCH (22:45)
[2022-07-12] MEDS: MetroNIDAZOLE 500 MG/100 ML 500 MG/100 ML BAG IVPB SCH ×2 (00:02→08:28)
[2022-07-12 06:11] LABS: Basophils # 0.1 K/mcL (0.0-0.2); Basophils % 0.8 %; Eosinophils # 0.3 K/mcL (0.0-0.6); Eosinophils % 4.1 %; Hematocrit 28.6 % (37.5-50.1); Hemoglobin 8.9 g/dL (12.9-16.9); Immature Granulocytes % 0.3 % (0-4); Lymphocytes # 0.5 K/mcL (0.6-4.6); Lymphocytes % 6.8 %; Mean Corpuscular HGB Conc 31.1 g/dL (31.6-35.5); Mean Corpuscular Hemoglobin 29.6 pg (28.0-33.3); Mean Platelet Volume 10.4 fL (9.4-12.4); Monocytes # 0.6 K/mcL (0.0-1.3); Monocytes % 8.1 %; Neutrophils # 6.1 K/mcL (1.6-8.9); Platelet Count 211 K/mcL (140-400); Red Blood Count 3.01 M/mcL (4.19-5.50); Red Cell Distribution Width 17.2 % (11.5-14.5); Segmented Neutrophils % 79.9 %; White Blood Count 7.6 K/mcL (4.3-11.1)
[2022-07-12 06:37] LABS: Albumin/Globulin Ratio 1.1 (1.1-2.2); Bilirubin,Direct 0.2 mg/dL (0.0-0.2); Bilirubin,Indirect 0.4 mg/dL (0.0-1.0); Bilirubin,Total 0.6 mg/dL (0.3-1.0); Calcium 8.7 mg/dL (8.6-10.3); Globulin 2.7 g/dL (2.4-3.5); Magnesium 1.9 mg/dL (1.6-2.6); Phosphorous 3.4 mg/dL (2.7-4.5); Potassium 3.2 mEq/L (3.5-5.1); Total Protein 5.7 g/dL (6.4-8.9)
[2022-07-12] MEDS: Pantoprazole 40 MG VIAL IVP SCH (06:49)
[2022-07-12] MEDS: 0.9 % Sodium Chloride 1,000 ML IVC SCH ×4 (07:41→13:33)
[2022-07-12] MEDS: Budesonide/Formoterol 80/4.5 1 PUFF INH IH SCH (07:52)
[2022-07-12] MEDS: Metoprolol XL (24 HR) Succ 25 MG TAB.ER.24H PO SCH (08:27)
[2022-07-12] MEDS: Furosemide 20 MG/2 ML VIAL IVP SCH (08:27)
[2022-07-12] MEDS: cefTRIAXone 2,000 MG in 0.9 % Sodium Chloride 20 ML IVP SCH (08:27)
[2022-07-12 12:28] VITALS: BP 97/61; PULSE 96; TEMP 97.6; O2SAT 95
== END 2022-07-12 13:45 | disposition home or self-care (01) | DRG 444 ==
LOC: 3ANU → SUATTDRO 01:42
PROVIDERS: ADMIT Internal Medicine; ATTEND Internal Medicine